=== PATIENT | female | born 1940 | race Caucasian/White ===

== ENCOUNTER 2018-12-24 08:55 | Day surgery (SDC) | payer MEDICARE, OTHER, MEDICAID ==
[~2018-12-24] VITALS: Ht 147.3 cm; Wt 61.2 kg
[~2018-12-24 08:55] MED LIST: ACETAMINOPHEN325 M1 PO; BENADRYL25 MG PO; CIPRO500 MG PO; CITALOPRAM HBR20 MG PO; DICYCLOMINE HCL20 MG PO; FLAGYL500 MG PO; FUROSEMIDE20 MG PO; FUROSEMIDE40 MG PO; K-TAB ER20 MEQ PO; KEFLEX500 MG PO; OXYCODONE HCL5 MG PO; PANTOPRAZOLE SO40 MG PO; PRILOSEC OTC20 MG PO; PROTONIX40 MG PO; SPIRONOLACTONE25 MG PO; SPIRONOLACTONE50 MG PO; TAMSULOSIN HCL0.4 MG PO; TRAZODONE HCL50 MG PO
--- NOTE | 2018-12-24 12:26 | NUR ---
12/24/18 1225 Toña Carrington 1217-PATIENT ARRIVED TO PACU ON 4L NC LAYING LEFT LATERAL NONAROUSABLE. RR EVEN. C02 33. ABDOMEN SOFT. 1222-PATIENT MOANING EYES CLOSED. HAND ON STOMACH. PATIENT NOT OPENING EYES TO VERBAL STIMULI. 1225-PATIENTS EYES CLOSED. REPORTS "MY TUMMY HURTS" PATIENT EDUCATED ABOUT AIR IN COLON AND PASSING GAS. PATIENT MOANING. SR.
--- NOTE | 2018-12-24 13:39 | NUR ---
PATIENT'S SPOUSE IS AT THE BEDSIDE. CALL LIGHT IS WITHIN REACH. PATIENT IS MOANING WITH EACH EXHALATION. PATIENT REPORTS ABDOMINAL PAIN AT 1/10. PATIENT SWINGS LEGS OVER THE SIDE OF THE BED AND ASKS FOR THE HEAD OF THE BED TO BE ELEVATED. THIS IS DONE. PATIENT REPOSITIONS HERSELF AT 90 ANGLE AND REPORTS HER PAIN IS IMPROVED WITH POSITION CHANGE. PATIENT'S ABDOMEN IS TENDER WITH LIGHT PALPATION. ABDOMEN IS FIRM. CONTINUOUS PULSE OXIMETER IS KEPT IN PLACE. OXYGEN IS TURNED OFF AFTER REPOSITIONING - OXYGEN SATURATION 100% ON 2L VIA NC.
--- NOTE | 2018-12-24 14:26 | NUR ---
1420-ABDOMINAL XRAY COMPLETED SHOWN TO DR. DAIGLE NEW ORDER FOR CHEST XRAY. PATIENT REPORTS "CAN'T THE DIFFERENCE BETWEEN BACK AND STOMACH PAIN" CALL LIGHT WITHIN REACH.
--- NOTE | 2018-12-24 17:15 | NUR ---
VERONICA 1500: DR DAIGLE IS IN TO SEE PATIENT AFTER REVIWEING X-RAYS. HE ORDERS PATIENT TO EAT "A LITTLE SOMETHING" AND IF SHE TOLERATES THAT, SHE CAN BE DISCHARGED. PATIENT IS GIVEN APPLESAUCE. SHE EATS THAT AND DRINKS SOME WATER AND TOLERATES THAT WELL. DISCHARGE INSTRUCTIONS ARE GIVEN IN PRESENCE OF SPOUSE AND BOTH VERBALIZE UNDERSTANDING. PATIENT STANDS AT THE BEDSIDE AND TOLERATES THAT WELL. PATIENT DRESSES SELF IN PRESENCE OF SPOUSE AND TOLERATES THAT WELL. PATIENT TRANSFERS HERSELF TO WHEELCHAIR AND THEN PERSONAL VEHICLE AND TOLERATES THAT WELL.
--- NOTE | 2018-12-25 08:36 | OR ---
[facility] [address] [place], [place] [address] Signed DATE OF OPERATION: 12/24/2018 SURGEON: Juliana Daigle MD PREOPERATIVE DIAGNOSES: 1. History of profound anemia (hematocrit 15.7 on November 02, 2018). 2. 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 3. Normal upper endoscopy, November 02, 2018. POSTOPERATIVE DIAGNOSES: Mild inflammatory changes of colon (chronic without evidence of polyps, diverticula formation, colitis, or cancer). PROCEDURE PERFORMED: Total colonoscopy to cecum with biopsy of cecum, left colon, and rectum. ANESTHESIA: Propofol infusion, Milton Hunter CRNA. INDICATION: A 78-year-old white woman who was admitted to the hospital on November 02, 2018, and evaluated by me at that time for profound anemia with hematocrit of 15.7. A more recent hematocrit performed on December 19 showed a hematocrit of 27.3. She has had no overt bleeding recently, though did have bright red rectal bleeding several months ago. She underwent upper endoscopy on her hospitalization previously as well as transfusion therapy. Upper endoscopy did not show a source of bleeding. Colonoscopy was recommended. However, she declined and wished to be discharged home at that time to present for outpatient colonoscopy. She is here for that purpose at this point. The risks of bleeding, infection, and perforation were reviewed with her. She understands and wished to proceed. FINDINGS: The prep was good. Complete colonoscopy was undertaken of the cecum without question. The ileocecal valve and appendiceal orifice were easily identified. There is no obvious lesion to account for her anemia, specifically no neoplasm, polyps, diverticular formation, or active colitis. There was mild chronic burned-out type colitis noted, but biopsies were obtained to affirm that. DESCRIPTION OF PROCEDURE: Electronically Signed By: JULIANA DAIGLE MD 12/25/18 0836 PATIENT NAME: MCKENZIE FRANK OPERATIVE REPORT DATE OF : 42 REPORT #: [id number] PHYSICIAN: JULIANA DAIGLE MD PCP: DEONDRE BORGES MD REPORT IS CONFIDENTIAL AND NOT TO BE RELEASED WITHOUT AUTHORIZATION [facility] [address] [place], [place] [address] Signed The patient was brought to the endoscopy suite and placed in lateral decubitus position given intravenous sedation to the point of slurred speech and nystagmus. This was with propofol infusional technique by the turbo electric operator with full cardiopulmonary monitoring. Digital rectal examination showed external hemorrhoids that were extensive. Digital rectal examination was found to be normal. An Olympus video colonoscope was passed in the rectum and manipulated throughout the colon ultimately intubating the cecum itself. Abdominal wall stabilization was required due to her redundant colon. There appeared to be mild chronic inflammation of the colon, but nothing would account for anemia. Biopsies were taken of the cecum. The scope was carefully withdrawn. Examination throughout did show some traumatic mucosal hemorrhages of minimal amount, a testimony to the friability of her mucosa. There was no sign of polyp, however. Attempts at retroflexed view were unsuccessful. Careful inspection of the rectum, however, showed no sign of abnormality that was likely accounting for anemia. Biopsies were obtained. The scope was removed. The patient was taken to recovery room in good condition. CONCLUDING DIAGNOSIS: No evidence of lesion to account for significant anemia. PLAN: She will return to the ongoing care of Dr. Borges. If she should develop a bleeding issue, re-evaluation will be undertaken. Her hematocrit most recently was 27.3 on December 19, 2018. She will return to the ongoing care of Dr. Borges. Juliana Daigle MD /SUEL /[id number] cc: Deondre Borges MD Copies: DEONDRE BORGES MD ~ Electronically Signed By: JULIANA DAIGLE MD 12/25/18 0836 PATIENT NAME: MCKENZIE FRANK OPERATIVE REPORT DATE OF : 42 REPORT #: [id number] PHYSICIAN: JULIANA DAIGLE MD PCP: DEONDRE BORGES MD REPORT IS CONFIDENTIAL AND NOT TO BE RELEASED WITHOUT AUTHORIZATION
== END 2018-12-24 15:40 | disposition home or self-care (01) ==
LOC: OPS 08:55 → DS 08:55 → OPS 10:00
PROVIDERS: Surgery
PROC: 0DBG8ZX Excision of Left Large Intestine, Via Natural or Artificial Opening Endoscopic, Diagnostic (ICD-10-PCS; 2018-12-24)
PROC: 0DBP8ZX Excision of Rectum, Via Natural or Artificial Opening Endoscopic, Diagnostic (ICD-10-PCS; 2018-12-24)
PROC: 0DBH8ZX Excision of Cecum, Via Natural or Artificial Opening Endoscopic, Diagnostic (ICD-10-PCS; principal; 2018-12-24 10:00)
DX: K52.9 Noninfective gastroenteritis and colitis, unspecified (principal); D64.9 Anemia, unspecified; F32.9 Major depressive disorder, single episode, unspecified; K74.60 Unspecified cirrhosis of liver; Z79.899 Other long term (current) drug therapy
CPT/HCPCS: 71045; 74018; 88305; J2704; J7120

== ENCOUNTER 2019-02-07 23:34 | Inpatient (IN) | payer MEDICARE, OTHER, MEDICAID ==
[~2019-02-07] VITALS: Ht 147.3 cm; Wt 62.9 kg
--- OUTSIDE RECORDS SUMMARY | 2019-02-07 23:36 | XMS ---
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 Care History Medical/Surgical 11/25/2018 [facility] - PATIENT HAS AN APT WITH DR WARREN ON 11/28/18 - UROLOGIST. 11/25/2018 [facility] - Patient is currently established with [facility]. If patient is seen in the ED during business hours. Please contact CHWs at [facility]. Care Recommendation: This patient has had 5 or more Emergency Department visits in the last 12 months.\T\nbsp; Patient requires education on the scope and purpose of the ED as an acute care provider not a Primary Care Provider and should not be utilized for chronic conditions.\T\nbsp; These are guidelines and the provider should exercise clinical judgment when providing care. E.D. VISIT COUNT (12 MO.) 6 [facility] TOTAL 6 NOTE: Visits indicate total known visits. ED/UCC VISIT TRACKING (12 MO.) 02/07/2019 23:34 [facility] [place] TYPE: Emergency COMPLAINT: - PASSED OUT 11/30/2018 08:42 [facility] [place] TYPE: Emergency COMPLAINT: - TROUBLE URINATING DIAGNOSES: - Retention of urine, unspecified - Dysuria - Other penitentiary (current) drug therapy - Allergy status to sulfonamides status - Allergy status to other drugs, medicaments and biological substances status 11/24/2018 10:51 [facility] [place] TYPE: Emergency COMPLAINT: - CATH ISSUE DIAGNOSES: - Allergy status to sulfonamides status - Other mechanical complication of other urinary catheter, initial encounter - Other penitentiary (current) drug therapy - Acquired absence of other specified parts of digestive tract - Allergy status to other drugs, medicaments and biological substances status - Leakage of indwelling urethral catheter, initial encounter 11/15/2018 07:04 [facility] [place] TYPE: Emergency COMPLAINT: - URINE PROBLEM, BACK PAIN, DIARRHEA 11/01/2018 13:16 [facility] [place] TYPE: Emergency COMPLAINT: - WEAKNESS,DIZZINESS 02/21/2018 13:36 [facility] [place] TYPE: Emergency COMPLAINT: - SOB INPATIENT VISIT TRACKING (12 MO.) 11/15/2018 07:05 [facility] [place] TYPE: Observation COMPLAINT: - COLITIS DIAGNOSES: - Hypo-osmolality and hyponatremia - Retention of urine, unspecified - Adverse effect of unspecified drugs, medicaments and biological substances, sequela - Nausea with vomiting, unspecified - Other penitentiary (current) drug therapy - Hypokalemia - Allergy status to sulfonamides status - Infectious gastroenteritis and colitis, unspecified - Hepatic failure, unspecified without coma - Allergy status to other drugs, medicaments and biological substances status - Insomnia, unspecified - Personal history of (healed) other pathological fracture 11/01/2018 13:17 [facility] [place] TYPE: Observation COMPLAINT: - ANEMIA SYMPTOMATIC DIAGNOSES: - Hepatic failure, unspecified without coma - Diaphragmatic hernia without obstruction or gangrene - Allergy status to other drugs, medicaments and biological substances status - Adverse effect of other drugs, medicaments and biological substances, sequela - Anemia, unspecified - Personal history of (healed) other pathological fracture - Allergy status to sulfonamides status - Weakness - Gastritis, unspecified, without bleeding - Other keno terminal operator (current) drug therapy - Urinary tract infection, site not specified - Secondary esophageal varices without bleeding - Personal history of peptic ulcer disease - Do not resuscitate - Unspecified cirrhosis of liver 02/21/2018 18:[address] [facility] [place] TYPE: Observation COMPLAINT: - ACITES, SYMPOTMATIC ANEMIA DIAGNOSES: - Hepatic failure, unspecified without coma - Irritable bowel syndrome without diarrhea - Allergy status to sulfonamides status - Allergy status to other drugs, medicaments and biological substances status - Toxic liver disease, unspecified - Do not resuscitate - Anemia, unspecified - Other penitentiary (current) drug therapy - Other ascites - Shortness of breath [email or web address]
[2019-02-08] MEDS ORDERED: FUROSEMIDE40 MG PO (01:40)
--- NOTE | 2019-02-08 14:53 | EKG ---
[facility] [address] [facility] [place] [address] Signed Sinus rhythm with occasional premature ventricular complexes Nonspecific T wave abnormality Abnormal ECG When compared with ECG of 01-NOV-2018 14:02, premature ventricular complexes are now present premature atrial complexes are no longer present Confirmed by ALEX GREENE DO ([id number]) on 02/08/2019 2:53:15 PM Electronically Signed By: ALEX GREENE DO 02/08/19 1453 PATIENT NAME: MCKENZIE FRANK Electrocardiogram DATE OF : 42 PHYSICIAN: ALEX GREENE DO REPORT #: [id number] REPORT IS CONFIDENTIAL AND NOT TO BE RELEASED WITHOUT AUTHORIZATION
[2019-02-09] MEDS ORDERED: TRAZODONE HCL50 MG PO (11:31)
[2019-02-09] MEDS ORDERED: PANTOPRAZOLE SO40 MG PO (11:31)
--- NOTE | 2019-02-09 13:32 | CONS ---
[facility] [address] [place], [place] [address] Signed DATE OF CONSULTATION: 02/08/2019 REQUESTING PHYSICIAN: Alex Mcintosh MD PROBLEM: Recurrent significant anemia (symptomatic). HISTORY OF PRESENT ILLNESS: This 78-year-old white woman is known to me from the past having been undergone consultation on November 02, 2018, for a consideration of endoscopic evaluation for the finding of a hematocrit at that time of 15.7. At that time, she had no hematemesis or blood per rectum. 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 Indeed, she was on a transplant list at one time, however, initiated a course of milk thistle ingestion, which improved her situation, no longer requiring liver transplant now. She is known to have esophageal varices. Her evaluation at that time included upper endoscopy showing esophageal varices, but no sign of acute bleeding problem though she did have diffuse gastritis. A colonoscopy had also been performed showing no specific abnormality. She is said to have some dark stool over the past week or so. She presented to the emergency room and was evaluated by Dr. Mosley at approximately midnight where she had a syncopal episode and woke up on the floor with the pain of her left chest wall. She had no hematemesis. For the preceding two days, she had felt occasionally lightheaded and weak, but without any abdominal pain and no hematemesis or gross blood per rectum. MEDICATIONS: Include Lasix and spironolactone. She takes no nonsteroidal medication. She was directly admitted to the hospital by Dr. Mcintosh when it was found that her hematocrit was 16.9. Transfusion therapy was initiated with 2 units of packed red cells, which made little impact on her hematocrit this morning. Her hematocrit this morning is 17.2, up from 16.9. Her platelet count was 207 at admission, 140 now. She continues to have no blood per rectum or hematemesis. Consultation is requested on the basis of possible need for repeat upper endoscopy and possible colonoscopy again. As regard to her fall on the chest, a chest x-ray with rib series was obtained, which showed no sign of pneumothorax or displaced rib fractures in any way. She complains only of chest wall pain, but no abdominal pain proper. Review of her hematocrit level over the past few months shows she was as high as 32 on November 15; on November 18, 30.7; on Electronically Signed By: JULIANA DAIGLE MD 02/09/19 1332 PATIENT NAME: MCKENZIE FRANK CONSULTATION DATE OF : 42 REPORT #: [id number] PHYSICIAN: JULIANA DAIGLE MD PCP: SIERRA ARANDA MD REPORT IS CONFIDENTIAL AND NOT TO BE RELEASED WITHOUT AUTHORIZATION [address] [address] Signed December 19.3. At present, patient has no shortness of breath. No diaphoresis. No hypotension. No complaints of abdominal pain. She still complains of back pain, which she chronically has from a T12 compression fracture and left chest wall pain as well. PHYSICAL EXAMINATION: GENERAL: A small white woman who does not look acutely distressed actually. VITAL SIGNS: Temperature is 98.3, blood pressure 95/54, pulse 72, O2 saturation is 96% on 2 L nasal cannula. NECK: Shows no thyromegaly or cervical adenopathy. Trachea is midline. CHEST: Shows normal respiratory excursion without tachypnea. Pulses regular. ABDOMEN: Scaphoid and flat. She has a somewhat deformed torso overall. Palpation of the abdomen reveals no focal tenderness, specifically no left upper or mid abdominal tenderness. There is mild tenderness of the chest wall. No crepitus is noted. EXTREMITIES: Show no clubbing, cyanosis, or edema. LABORATORY STUDIES: Show this morning a white count of 4.0, hematocrit 17.2, platelets 140,000. Coag studies show an INR normal at 1.1. Chem profile shows sodium 130. Studies last night showed troponin less than 0.01. ASSESSMENT: The patient's previous anemia was attributed to diffuse gastritis without acute bleeding. She has had some dark stool and one wonders whether there may be another source of occult GI bleeding, specifically the small bowel as upper endoscopy previously did show diffuse gastritis without bleeding. No non-bleeding advanced esophageal varices on colon evaluation, which was considered without sign of lesion to account for anemia. Review of the colonoscopy report from December 24, 2018 showed mild inflammatory lesion of the colon. No obvious ongoing or likely bleeding source otherwise. Certainly, upper endoscopy could be performed to assess if there is a concurrent source of new GI bleeding, specifically ulceration or progression of her gastritis. Though she is not on any new nonsteroidal medications, she is not on any side of protective agents either. Her current medications based on updated pharmacy list include Lasix 20 mg p.o. daily and spironolactone 50 mg daily. Allergies noted include sulfa medications and promethazine (Phenergan). Additional transfusion therapy is anticipated by Dr. Interiano which I think would be advisable prior to embarking upon endoscopic evaluation. If she should have sudden bleeding or profound hemodynamic compromise that plan could be modified given her overall medical status and advanced age resuscitation with additional blood transfusion would be appropriate prior to endoscopic evaluation. I have discussed this with Dr. Mcintosh. Electronically Signed By: JULIANA DAIGLE MD 02/09/19 1335 PATIENT NAME: MCKENZIE FRANK CONSULTATION DATE OF : 42 REPORT #: [id number] PHYSICIAN: JULIANA DAIGLE MD PCP: SIERRA ARANDA MD REPORT IS CONFIDENTIAL AND NOT TO BE RELEASED WITHOUT AUTHORIZATION [address] [address] Signed Juliana Daigle MD JM/MODL /[id number] cc: Alex Mcintosh MD Copies: ALEX MCINTOSH DO ~ Electronically Signed By: JULIANA DAIGLE MD 02/09/19 1332 PATIENT NAME: MCKENZIE FRANK CONSULTATION DATE OF : 42 REPORT #: [id number] PHYSICIAN: JULIANA DAIGLE MD PCP: SIERRA ARANDA MD REPORT IS CONFIDENTIAL AND NOT TO BE RELEASED WITHOUT AUTHORIZATION
--- NOTE | 2019-02-11 13:59 | PATH ---
[facility] [address] [place], [place] [address] Signed SPECIMEN(S): A RECTO SIGMOID POLYP SPECIMEN SOURCE: A. RECTO SIGMOID POLYP CLINICAL HISTORY: Anemia. Post op: Polyp, esophageal varices, diffuse gastritis - no bleeding. MICROSCOPIC DESCRIPTION: Histologic sections of all submitted blocks are examined by light microscopy. These findings, together with the gross examination, support the pathologic diagnosis. FINAL PATHOLOGIC DIAGNOSIS: Mucosa, rectosigmoid area, biopsy: - Tubular adenoma. LJA:glc:C2NR GROSS DESCRIPTION: The specimen, labeled "JH, rectosigmoid polyp," is received in formalin and consists of a 0.2 cm in greatest dimension, linares-white soft tissue fragment. The specimen is entirely submitted in cassette (A1). AR (under the direct supervision of a pathologist) The Gross Description was prepared using a voice recognition system. The report was reviewed for accuracy; however, sound-alike word errors, addition and/or deletions may occur. If there is any question about this report, please contact Client Services. PERFORMING LABORATORY: The technical component was performed by [facility], [address] [place] [id number] (Liner Inserter: Jacey Guerrero MD; CLIA# [id number]). [facility] [address] [address] (Liner Inserter: Tramaine Vegas MD; CLIA# [id number]). Diagnostician: Tramaine Vegas MD Pathologist Electronically Signed 02/11/2019 PATIENT NAME: MCKENZIE FRANK PATHOLOGY DATE OF : 42 REPORT #: [id number] PHYSICIAN: YUKI PATHOLOGY PCP: SIERRA ARANDA MD REPORT IS CONFIDENTIAL AND NOT TO BE RELEASED WITHOUT AUTHORIZATION [address] [place], [place] [address] Signed Copies: ~ PATIENT NAME: MCKENZIE FRANK PATHOLOGY DATE OF : 42 REPORT #: [id number] PHYSICIAN: YUKI PATHOLOGY PCP: SIERRA ARANDA MD REPORT IS CONFIDENTIAL AND NOT TO BE RELEASED WITHOUT AUTHORIZATION
--- NOTE | 2019-02-12 10:22 | OR ---
[facility] [address] [place], [place] [address] Signed DATE OF OPERATION: 02/10/2019 SURGEON: Juliana Daigle MD PREOPERATIVE DIAGNOSES: 1. Profound anemia (recurrent) upper endoscopy showing only esophageal varices. 2. Colonoscopy to transverse colon yesterday with one polyp of rectosigmoid (excised, but incomplete bowel prep). POSTOPERATIVE DIAGNOSIS: No evidence of lesion of colon to account for anemia. PROCEDURE PERFORMED: Total colonoscopy to cecum. ANESTHESIA: Intravenous sedation; propofol infusion; Molly Marie CRNA INDICATION: This 78-year-old white woman is a patient of Dr. Borges and admitted by Dr. Mcintosh on February 07, 2019, with profound anemia. Her hematocrit was 15. She has been transfused and shows no sign of bleeding. She did have "dark stool" at time of her presentation. She yesterday underwent upper endoscopy, which showed esophageal varices as expected from her liver cirrhosis issue from the past. Attempts at colonoscopy after bowel prep were unsuccessful largely, certainly anything proximal to the mid transverse colon could not be evaluated due to inadequate prep. On that basis, she has undergone bowel prep again overnight and is to undergo colonoscopy at this time. The risks of bleeding, infection, and perforation were reviewed with her. She understands and wished to proceed. FINDINGS: The prep was much improved of course. It was not perfect, however. Colonoscopy was undertaken to the cecum based on characteristic landmarks and abdominal wall palpation. There was no sign of polyps or colitis or arteriovenous malformations or other lesions that would account for anemia. The clip from prior polypectomy yesterday was still intact. DESCRIPTION OF PROCEDURE: The patient was brought to the endoscopy suite and placed in lateral decubitus position given intravenous sedation with propofol infusional technique with full cardiopulmonary Electronically Signed By: JULIANA DAIGLE MD 02/12/19 1022 PATIENT NAME: MCKENZIE FRANK OPERATIVE REPORT DATE OF : 42 REPORT #: [id number] PHYSICIAN: JULIANA DAIGLE MD PCP: SIERRA BORGES MD REPORT IS CONFIDENTIAL AND NOT TO BE RELEASED WITHOUT AUTHORIZATION [facility] [address] [place], [place] [address] Signed monitoring. Digital rectal examination was undertaken showing some medium dark liquid stool. An Olympus video colonoscope was passed in the rectum and manipulated throughout the colon. She had poor sphincter tone overall. Ultimately, the scope was advanced beyond the transverse colon and ultimately to the cecum itself. Irrigation was undertaken. There was some solid stool still in the cecum. Various manipulations could not clear much of it there. Abdominal wall palpation revealed that this was the cecum in fact. I did not intubate the ileum as it was not able to be intubated based on some retained stool. The scope was withdrawn from that point. Careful examination showed no sign of bleeding, blood clot, arteriovenous malformation, or neoplasm. The clip applied to the polypectomy site from yesterday was noted and is intact. Scope was removed. The patient was taken to recovery room in good condition. CONCLUDING DIAGNOSIS: No discernible lesion to account for anemia. PLAN: She will return to the ongoing care of Dr. Mcintosh. Her episodic anemia remains enigmatic. Whether this remains a production problem of blood or blood loss problem is uncertain. I suspect the former considering the multiple evaluations she has had for the latter. Juliana Daigle MD JM/MODL /[id number] cc: MD Art Antoine MD Copies: SIERRA BORGES MD, BRIAN DO ~ Electronically Signed By: JULIANA DAIGLE MD 02/12/19 1022 PATIENT NAME: MCKENZIE FRANK OPERATIVE REPORT DATE OF : 42 REPORT #: [id number] PHYSICIAN: JULIANA DAIGLE MD PCP: SIERRA BORGES MD REPORT IS CONFIDENTIAL AND NOT TO BE RELEASED WITHOUT AUTHORIZATION
--- NOTE | 2019-02-12 10:22 | OR ---
[facility] [address], [place] [address] Signed DATE OF OPERATION: 02/09/2019 SURGEON: Juliana Daigle MD DATE OF PROCEDURE: 02/09/2019 PREOPERATIVE DIAGNOSES: 1. Recurrent severe anemia (hematocrit of 15) with "dark stool." 2. Known history of cirrhosis with portal hypertension and esophageal varices. POSTOPERATIVE DIAGNOSES: 1. Esophageal varices, nonbleeding, grade 4. 2. Mild diffuse gastritis without sign of bleeding or recent stigmata of bleeding. 3. Small polyp of rectosigmoid (excised). Poor prep proximal to mid transverse colon. PROCEDURES: 1. Esophagogastroduodenoscopy. 2. Colonoscopy beyond splenic flexure with cold morcellation polypectomy x1. ANESTHESIA: Intravenous sedation, propofol infusion; Milton Hunter CRNA. INDICATION: This 78-year-old white woman is a patient of Dr. Borges. She has been admitted by Dr. Mcintosh on 02/07/2019, with recurrent severe anemia, hematocrit of 15. She has had 4 units of packed red cells. Her hematocrit is now greater than 31. She has not shown any overt bleeding, certainly no hematemesis and no melena, but was said to have "dark stools. She presented the same way this past summer, for which, upper endoscopy confirmed esophageal varices, which were well known previously. No sign of bleeding and mild diffuse gastritis, and colonoscopy subsequently performed showed no lesion to account for anemia. She is reported to have undergone PillCam evaluation elsewhere, which was negative as well. Endoscopic evaluation has been requested by Dr. Mcintosh given that her recent anemia is associated with dark stool. Both upper endoscopy and colonoscopy will be undertaken. It is recalled that she has cirrhosis related to a surgical misadventure elsewhere, in Electronically Signed By: JULIANA DAIGLE MD 02/12/19 1022 PATIENT NAME: MCKENZIE FRANK OPERATIVE REPORT DATE OF : 42 REPORT #: [id number] PHYSICIAN: JULIANA DAIGLE MD PCP: DEONDRE BORGES MD REPORT IS CONFIDENTIAL AND NOT TO BE RELEASED WITHOUT AUTHORIZATION [facility] [address], [place] [address] Signed which sclerosing agent was infused to the biliary tree with laparoscopic cholecystectomy 17 years ago resulting in significant hepatic damage, cirrhosis and resultant portal hypertension. FINDINGS: Upper endoscopy did confirm grade 4 esophageal varices without sign or stigmata of recent bleeding. There was mild diffuse gastritis, but no sign of ulceration. No blood in the stomach or duodenum. There was bile in the stomach indeed. Colonoscopy unfortunately was inadequately prepped. Great effort was made to provide complete colonoscopy, but passage beyond the mid transverse colon was simply not feasible, reasonable or safe due to inadequacy of the bowel prep. The colon from the midtransverse distalward, however, showed no bleeding lesion, blood or diverticulosis, did show one sessile adenomatous polyp, which was excised. DESCRIPTION OF PROCEDURE: The patient was brought to the endoscopy suite and placed in lateral decubitus position, given topical Hurricaine spray hypopharyngeal anesthesia. With full cardiopulmonary monitoring and sedation administered by propofol infusion by the trade recruiter, a bite block was placed and an Olympus video upper endoscope was passed in the hypopharynx. The vocal cords appeared normal. Scope was advanced to the esophagus and immediately noted were numerous large and engorged varices, but no stigmata of recent bleeding or inflammation. Scope was passed in the stomach where bilious material was noted. There is certainly no clot of blood or other stigmata of recent bleeding. Irrigation was undertaken as needed. The scope was advanced to the antrum. The scope passed into the duodenum, which was entirely normal. Scope was withdrawn and retroflexed view undertaken, confirmed a large hiatal hernia. Irrigation was undertaken more fully. There was no evidence at all of recent bleeding or lesion, though she did have mild diffuse gastritis. The scope was straightened and withdrawn to the distal esophagus where careful withdrawal showed again no evidence of bleeding or ulceration, but certainly advanced esophageal varices. Scope was withdrawn and removed. Plans were then made for colonoscopy. She had undergone a bowel prep last night, which was unfortunately delivered in a delayed way over the course of the day. Immediately noted was some dark but not black or tarry stool. The scope was passed in the rectum and immediately noted was a rather poor prep. Irrigation was undertaken as able and the scope manipulated as far as possible ultimately beyond the splenic flexure to the transverse colon. Irrigation was undertaken, but there was no reasonable expectation the scope could be passed to the cecum and certainly unlikely to be able to detect more subtle lesions such as arteriovenous malformations and so forth. On that basis, the colonoscopy was no longer pushed toward the cecum and the scope was withdrawn, careful irrigation undertaken and evaluation undertaken showing no sign of bleeding lesion or Electronically Signed By: JULIANA DAIGLE MD 02/12/19 1022 PATIENT NAME: MCKENZIE FRANK OPERATIVE REPORT DATE OF : 42 REPORT #: [id number] PHYSICIAN: JULIANA DAIGLE MD PCP: DEONDRE BORGES MD REPORT IS CONFIDENTIAL AND NOT TO BE RELEASED WITHOUT AUTHORIZATION [place] [id number] Signed blood. There was a polyp at about 20 cm, which was excised with cold morcellation technique. On the basis of her known portal hypertension, hemoclip was applied to assure hemostasis. The scope was then withdrawn. CONCLUDING DIAGNOSES: 1. No sign of upper gastrointestinal bleeding based on upper endoscopy, though esophageal varices were present and diffuse gastritis was noted. 2. Incomplete bowel prep. Colonoscopy to mid transverse colon showing no sign of bleeding lesion or blood, but an adenomatous-appearing polyp at 20 cm, excised fully. PLAN: We will review with Dr. Mcintosh. A more complete colon evaluation may be advisable, but only if adequate bowel prep can be undertaken. We will review this. We are mindful that she has undergone a rather extensive bowel evaluation in the past including PillCam showing no lesion to account for bleeding. Evaluation is underway for a "production- related" anemia including bone marrow issue or perhaps a sequestration issue of her red cells rather than actual blood loss anemia. MD JOSE ANTONIO Worley/MODL /[id number] cc: MD Deondre Vieira MD Copies: ALEX MCINTOSH MALCOLM MD ~ Electronically Signed By: JULIANA DAIGLE MD 02/12/19 1022 PATIENT NAME: MCKENZIE FRANK OPERATIVE REPORT DATE OF : 42 REPORT #: [id number] PHYSICIAN: JULIANA DAIGLE MD PCP: DEONDRE BORGES MD REPORT IS CONFIDENTIAL AND NOT TO BE RELEASED WITHOUT AUTHORIZATION
== END 2019-02-13 11:12 | disposition swing bed (61) | DRG 811 ==
LOC: ED 23:34 → MS 23:35
PROVIDERS: Surgery; ADMIT Student in an Organized Health Care Education/Training Program
PROC: 0DJD8ZZ Inspection of Lower Intestinal Tract, Via Natural or Artificial Opening Endoscopic (ICD-10-PCS; principal; 2019-02-10 14:45)
DX: D62 Acute posthemorrhagic anemia (principal); J96.01 Acute respiratory failure with hypoxia; S22.42XA Multiple fractures of ribs, left side, initial encounter for closed fracture; K92.1 Melena; I85.10 Secondary esophageal varices without bleeding; D50.0 Iron deficiency anemia secondary to blood loss (chronic); K72.90 Hepatic failure, unspecified without coma; G47.00 Insomnia, unspecified; Z79.899 Other long term (current) drug therapy; Z66 Do not resuscitate; Z88.2 Allergy status to sulfonamides; Z88.8 Allergy status to other drugs, medicaments and biological substances; W18.30XA Fall on same level, unspecified, initial encounter; Y92.009 Unspecified place in unspecified non-institutional (private) residence as the place of occurrence of the external cause
CPT/HCPCS: 36415; 71045; 71101; 80048; 80053; 82607; 82746; 83615; 83735; 84484; 85025; 85045; 85610; 86850; 86880; 86900; 86901; 86920; 93005; 93010; 94640; 94762; 96361; 96374; 96375; 97110; 97116; 97162; 97165; 97535; 99285-25; C9113; J0131; J1940; J2270; J2405; J2704; J3010; J3475; J7030; J7120; P9016

== ENCOUNTER 2019-02-13 11:13 | Inpatient (IN) | payer MEDICARE, OTHER, MEDICAID ==
[~2019-02-13] VITALS: Ht 147.3 cm; Wt 61.3 kg
--- NOTE | 2019-02-13 12:00 | NUR ---
MED REC COMPLETE
--- NOTE | 2019-02-13 13:09 | NUR ---
PT WAS TRANSITIONED TO SWING BED STATUS RECENTLY FOR CONTINUED THERAPY. ASSESSMENT COMPLETED PT ALERT AND ORIENTED. PT DENIES NEEDS/CONCERNS. PT AMBULATES ONE FULL LAP AROUND NURSING STATIONS WITH SBA AND FWW. PT TOLERATED WELL AND UP TO CHAIR AT THIS TIME. CALL LIGTH AND FRESH H2O IN REACH.
--- NOTE | 2019-02-13 14:29 | NUR ---
I ASKED HER THIS MORNING AND THAN AROUND 1330 IF SHE WANTED A SHOWER AND SHE SAID NOT RIGHT NOW. BUT I DID SET HER UP FOR A SHOWER.
--- NOTE | 2019-02-13 15:50 | NUR ---
PT REPORTS "6/10 ACHING AND AT TIMES SHARP" PAIN TO LEFT POSTERIOR RIBS. pT REQEUSTED AND RECEIVED PRN PO OXYCODONE AND ALSO SCHEDULED PO GABAPENTIN -SEE EMAR. CALL LIGHT AND H2O IN REACH. NO OTHER NEEDS OR CONCERNS VOICED.
--- NOTE | 2019-02-13 19:00 | NUR ---
SHIFT REPORT RECEIVED FROM DAYSHIFT SINTIA HILL AT BEDSIDE. PT AWAKE AND RESTING IN BED, REPORTS DISCOMFORT AT TIMES. ON RA, NO DISTRESS NOTED. CALL LIGHT IN REACH.
--- NOTE | 2019-02-13 21:30 | NUR ---
ASSESSMENT COMPLETE, SCHEDULED MEDICATIONS GIVEN (SEE EMAR). VSS, PT ON RA AT THIS TIME. PT REPORTS 5/10 PAIN, DESCRIBES TOLERABLE AT THIS TIME. LUNG SOUNDS CLEAR, DIMINISHED IN THE LEFT LOBES. PT DENIES ADDITIONAL NEEDS, CALL LIGHT IN REACH.
--- NOTE | 2019-02-13 23:17 | NUR ---
PT RESTING IN BED, EYES CLOSED, RESPIRATIONS EVEN AND UNLABORED. NO DISTRESS NOTED, PT APPEARS COMFORTABLE. CALL LIGHT IN REACH.
--- NOTE | 2019-02-14 02:23 | NUR ---
PT SPOT CHECKED, O2 SAT MID TO UPPER 80'S. PT PLACED ON 1LNC, NOW MAINTAINING IN 90'S. WILL MONITOR. CALL LIGHT IN REACH.
--- NOTE | 2019-02-14 03:30 | NUR ---
PT RESTING IN BED, EYES CLOSED. 1LNC IN PLACE, O2 SAT AND HR WNL. PT APPEARS COMFORTABLE, DENIES ADDITIONAL NEEDS. CALL LIGHT IN REACH.
--- NOTE | 2019-02-14 04:30 | NUR ---
PT RESTING IN BED, EYES CLOSED. PT ON 1LNC, O2 SAT UPPER 90'S, HR 70'S. PT APPEARS COMFRTABLE, NO SIGNS OF PAIN OR DISTRESS NOTED. CALL LIGHT IN REACH.
--- NOTE | 2019-02-14 05:57 | NUR ---
PT UP SBA TO VOID, REPORTS 7-8/10 PAIN. ONE 5MG OXYCODONE ADMINISTERED. PT AMBULATED TO CHAIR, CALL LIGHT IN REACH. I&O'S RECORDED.
--- NOTE | 2019-02-14 07:31 | NUR ---
while giving report, pt reports 6/10 pain. prn oxycodone administered. no further needs, call light in reach.
--- NOTE | 2019-02-14 07:40 | NUR ---
RECIEVED BEDSIDE REPORT FROM SINTIA SCHERER. PT IS SITTING UP IN CHAIR. REPORTS ONE OXY WAS NOT ENOUGH, WILL GIVE ANOTHER ONE.
--- NOTE | 2019-02-14 11:53 | NUR ---
PT SITTING IN CHAIR, READING A BOOK. SHE IS ALERT, ORIENTED AND PLEASANT. SHE MENTIONED THAT THE NIGHTS SLEEP WAS OK-NO PAIN AT THE PRESENT.HAD GOOD VISIT, PT THANKED ME FOR COMING BY. EXTENDED A BLESSING, WILL FOLLOW NEEDED
--- NOTE | 2019-02-14 11:54 | NUR ---
SPOKE WITH PATIENT IN ROOM. DISCUSSED TRANSIONAL CARE STAY. DISCUSSED PROGRESSION OF THERAPY TO STRENGTHEN HER TO BE SAFE TO RETURN HOME. SHE STATES SHE IS ONLY ABLE TO TOLERATE ABOUT A MINUTE OF ADL'S WITHOUT WALKER. PATIENT IS STILL VERY PAINFUL FROM RIB AREA. DISCUSSED IMPORTANCE OF USING THE IS ROUTINELY THROUGHOUT THE DAY. DISSCUSSED CDB. DISCUSSED GOOD NUTRITION. PATIENT STATES UNDERSTANDING AND QUESTIONS ANSWERED.
--- NOTE | 2019-02-14 12:19 | NUR ---
I ASKED PATIENT IF SHE WOULD LIKE TO TAKE A SHOWER TODAY AND SHE SAID NO BUT SHE DID SAY THAT SHE DID DO A PARTIAL BATH THIS MORNING. SHE IS SITTING UP IN HER CHAIR READING HER BOOK.
--- NOTE | 2019-02-14 18:20 | NUR ---
CALL LIGHT ANSWERED. PATIENT USING BATHROOM. PATIENT BACKS TO BED. I&O DONE. CALL LIGHT WITHIN REACH. NO OTHER NEEDS AT THIS TIME
--- NOTE | 2019-02-14 18:25 | NUR ---
PT IS MOSTLY INDEPENDENT IN HER ROOM. ENCOURAGE TO WALK IN HALLS. EATING WELL, VOIDING WELL. PAIN IS MOSTLY WELL CONTROLLED WITH PO MEDS. DISCUSSED GOALS AND PLAN OF SWING BED PROGRAM. PT STATED SHE UNDERSTOOD. VOIDING WELL, PO INTAKE IMPROVED.
--- NOTE | 2019-02-14 20:24 | NUR ---
Pt up to br, voided QS, back to ebd. requiures 1PA/FWW. does c/o slight sob sometimes with exertion. Calm at this time. Coop with assessment. sligth crackles R upper, clear otherwise. last bm this evening. No c/o pain at this time. Fresh water and call light at bedside, no c/o n/v. Bruising both hands and L ac from IV sites and blood draws
--- NOTE | 2019-02-14 20:30 | NUR ---
c/o 5/10 L sided rib pain, medicated with 10mg po Oxycodone. Watching tv
--- NOTE | 2019-02-14 21:48 | NUR ---
vitals and I&Os done
--- NOTE | 2019-02-14 22:21 | NUR ---
RESTING, OPENS EYES CLOSED, AWAKENS EASILY, DENIES PAIN, RELIEF STATED FROM EARLIER PAIN MEDS. CALL LIGHT AT BEDSIDE
--- NOTE | 2019-02-15 01:55 | NUR ---
Resting, no distress, call light at bedside
--- NOTE | 2019-02-15 04:48 | NUR ---
PT CONTINUES ON TRANSITIONAL CARE/SWING BED STATUS. REQUIRES 1PA/FWW, SLIGHT SOB ON EXERTION BUT RECUPERATES EASILY, ON ROOM AIR. HAS BEEN MEDICATED WITH OXYCODONE 10MG PO X1 PER L RIB PAIN. COOPERATIVE WITH POC. TOLERATING DIET AND FLUIDS, NO C/O N/V. USES CALL LIGHT APPROPRIATELY.
--- NOTE | 2019-02-15 05:07 | NUR ---
IN BED, UP TO BR WITH HELP, WENT BACK TO CHAIR, TOLERATED WELL. DAILY WEIGHT 137# THIS AM. FRESH WATER GIVEN. CALL LIGHT AT HANDS REACH. NO C/O PAIN OR N/V. NO SOB WITH EXERTION NOTED THIS AM.
--- NOTE | 2019-02-15 05:11 | NUR ---
SBA PT TO TOILET, SBA PT ONTO STANDING SCALE, SBA PT INTO CHAIR, BEDSIDE TABLE / CALL LIGHT IN REACH
--- NOTE | 2019-02-15 07:21 | NUR ---
RECIEVED REPORT FROM SINTIA PEREZ. PT AWAKE AND ALERT IN CHAIR. PT IS MORE AWAKE AND STEADY IN THE AM. VOIDING WELL. EATING WELL.
--- NOTE | 2019-02-15 17:40 | NUR ---
PT WORKED WITH PHYSICAL THERAPY. INDEPENDENT IN ROOM. ON ROOM AIR. VOIDING WELL. SHOWER TODAY.
--- NOTE | 2019-02-15 20:27 | NUR ---
In bed c/o increased L rib side pain. Medicated with Oxycodione 10mg po. Lidoderm partch removed from L side. Tolerating diet and liquids, no c/o n/v. Cooperative with assessment. SCDS in place.
--- NOTE | 2019-02-15 22:03 | NUR ---
SBA PT TO TOILET, AND BK TO BED,
--- NOTE | 2019-02-15 22:23 | NUR ---
Up to br 1pa/fww, voided, tolerated well, back to bed. no c/o pain. call light at bedside
--- NOTE | 2019-02-16 03:40 | NUR ---
RESTING, NO DISTRESS, UP TO BR EARLIER, TOLERATED WELL. BACK TO BED. CALL LIGHT AT BEDSIDE
--- NOTE | 2019-02-16 04:07 | NUR ---
SBA PT TO TOILET, AND BK TO BED,
--- NOTE | 2019-02-16 04:32 | NUR ---
CONTINUES ON TRANSITIONAL CARE STATUS, REQUIRES 1PA/FWW, WORKING WITH PT/OT. HAS BEEN UP SEVERAL TIMES TO BR, VOIDING QS. NO SOB NOTED THIS SHIFT. ON ROOM AIR, WAS MEDICATED AT BEGINING OF SHIFT WITH OXYCODONE 10MG PO PER L SIDED RIB PAIN, EFFECTIVE. CURRENTLY RESTING, EYES CLOSED. CALL LIGHT AND FLUIDS AT BEDSIDE
--- NOTE | 2019-02-16 06:54 | NUR ---
SBA PT ONTO STANDING SCALE, SBA PT TO TOILET, SBA TO CHAIR I OBSV PT HAVING WHEEZING AND REPORTED TO THE RN, RN IS AWARE,
--- NOTE | 2019-02-16 07:25 | NUR ---
RECIEVED BEDSIDE REPORT FROM SINTIA PEREZ. PT IS AWAKE AND ALERT, SITTING IN THE CHAIR. STATES SHE IS MORE PAINFUL THIS MORNING, SHE WOULD LIKE PAIN MEDS WITH HER AM MEDS.
--- NOTE | 2019-02-16 09:56 | NUR ---
PT IS SLEEPING IN HER CHAIR, APPEARS COMFORTABLE AT THIS TIME.
--- NOTE | 2019-02-16 17:53 | NUR ---
PT IS RESTING ALL AFTERNOON. SHE REQUESTED A WARM BLANKET. OTHERWISE SHE IS COMFORTABLE.
--- NOTE | 2019-02-16 19:05 | NUR ---
CHARGE NURSE REPORT RECEIVED. PT IN BED, NO NEEDS AT THIS TIME.
--- NOTE | 2019-02-16 20:01 | NUR ---
IN BED, C/O 6/10 L RIB AREA PAIN, LIDODERM PATCH REMOVED, MEDICATED WTIH OXYCODONE 10MG PO. STATES SHE FEELS WEAKER WITH SLIGHT SOB WITH MOVEMENT/EXERTION. NO DISTRESS NTOED AT THIS TIME, ON ROOM AIR. REQUIRES 1PA AND FWW. SCDS IN PLACE. VOIDING QS. CALL LIGHT AND FRESH WATER AT BEDSIDE CONTINUES ON SWING BED/TRANSITIONAL CARE STATUS, COOP WITH ASSESSMENT
--- NOTE | 2019-02-16 22:00 | NUR ---
RESTING, EYES CLOSED, CALL LIHGT AT BEDSIDE.
--- NOTE | 2019-02-16 22:36 | NUR ---
ANSWERED CALL LIGHT. SBA TO THE BATHROOM AND BACK TO BED. CALL LIGHT IN REACH.
--- NOTE | 2019-02-17 01:43 | NUR ---
Resting, no c/o pain, no distress, call light at bedside
--- NOTE | 2019-02-17 02:40 | NUR ---
ADMIN OXYCODONE 10MG PO FOR REPORTS OF 5/10 LOWER BACK/HIP PAIN.
--- NOTE | 2019-02-17 04:50 | NUR ---
PT HAS SLEPT MOST OF THIS SHIFT, HAS BEEN MEDICATED 2X WITH OXYCODONE 10MG PO C/O L POSTERIOR RIB PAIN WITH GOOD TO FAIR PAIN RELIEF. NO C/O N/V. UP TO BR WITH 1PA AND FWW. TOLERATING FAIR. CALL LIGHT AND FLUIDS AT BEDSIDE
--- NOTE | 2019-02-17 07:02 | NUR ---
SBA TO THE BATHROOM AND BACK TO BED.
--- NOTE | 2019-02-17 07:19 | NUR ---
RECIEVED REPORT FROM SINTIA PEREZ. PT IS RESTING, SHE HAS NOT SLEPT WELL ALL NIGHT. SHE HAS NOT BEEN WEIGHED YET. ANXIOUS ABOUT DC.
--- NOTE | 2019-02-17 12:45 | NUR ---
PT SITTING IN CHAIR, WATCHING TV. SHE SMILED AND STATED, "I FEEL BETTER EVERYDAY". PT MENTIONED THOUGH THAT SHE HAS NOT SLEPT WELL-HAVE WILD DREAMS AND WAKES HERSELF UP TALKING IN HER SLEEP. PT HAS ENJOYED WALKING MORE. I EXTENDED A BLESSING,WILL FOLLOW NEEDED
--- NOTE | 2019-02-17 13:50 | NUR ---
PT'S DAUGHTER REPORTS SHE IS FEELING NAUSOUS AGAIN. ANTIEMETICS GIVEN AN HOUR AGO, UNABLE TO GIVE MORE FOR 5 MORE HOURS. WILL CONTINUE TO MONTIOR.
--- NOTE | 2019-02-17 19:10 | NUR ---
CHARGE NURSE REPORT RECEIVED. NO NEEDS AT THIS TIME.
--- NOTE | 2019-02-17 19:10 | NUR ---
BEDSIDE REPORT RECEIVED FROM OFFGOING RNLUIS. PT SITTING UP IN CHAIR, PARTICIPATES IN REPORT. PT DENIES NEEDS AT THIS TIME. CALL LIGHT WITHIN.
--- NOTE | 2019-02-17 20:40 | NUR ---
PT ASSESSMENT COMPLETE. PT RESTING IN BED. REPORTS PAIN TO L FLANK, RATES 6/10. PRN OXYCODONE ADMINISTERED. PT STATES THAT PAIN INCREASES WITH MOVEMENT. PT DENIES NAUSEA OR SOB. ICE WATER REFILLED. PT DENIES FURTHER NEEDS. STATES THAT SHE WILL CALL WHEN SHE IS READY FOR BED. CALL LIGHT IN REACH.
--- NOTE | 2019-02-17 21:25 | NUR ---
CALL LIGHT ANSWERED. PATIENT IS BACK IN BED FROM BATHROOM. CALL LIGHT IN REACH.
--- NOTE | 2019-02-17 23:53 | NUR ---
PATIENT USED THE CALL LIGHT. SBA TO THE BATHROOM. PATIENT IS BACK IN BED. CALL LIGHT IN REACH.
--- NOTE | 2019-02-18 00:37 | NUR ---
PT RESTING IN BED AFTER USING THE BATHROOM. PT DENIES PAIN AFTER OXYCODONE ADMINISTRATION. DENIES FURTHER NEEDS AT THIS TIME. CALL LIGHT IN REACH.
--- NOTE | 2019-02-18 04:37 | NUR ---
sba to the bathroom. patient is back in bed. call light in reaCH.
--- NOTE | 2019-02-18 05:37 | NUR ---
PT REQUESTS PRN OXYCODONE FOR 6/10 PAIN TO L RIBS. WARM BLANKET PROVIDED. PT DENIES FURTHER NEEDS AT THIS TIME. CALL LIGHT IN REACH.
--- NOTE | 2019-02-18 05:38 | NUR ---
PT RESTED WELL THIS SHIFT. OXYCODONE X 2 FOR PAIN. PAIN TO L RIBS. NO IV SITE. UO QS. PT/OT. PT INDEPENDENT IN ROOM.
--- NOTE | 2019-02-18 07:05 | NUR ---
BEDSIDE HANDOFF REPORT RECEIVED FROM EDUCATION TRAINER RN. PT RESTING IN BED, PT DENIES NEEDS AT THIS TIME.
--- NOTE | 2019-02-18 07:37 | NUR ---
PATIENT UP TO BATHROOM AND THEN TO CHAIR, SBA. PATIENT DID AM CARE AND ORAL CARE AT SINK. CALL LIGHT IN REACH. NO FURTHER NEEDS AT THIS TIME.
--- NOTE | 2019-02-18 09:45 | NUR ---
PT SITTING IN CHAIR, READING A BOOK. PT RATES PAIN MODERATE TO LEFT RIBS. PT ON ROOM AIR, LUNG SOUNDS CLEAR, DENIES SOB. BOWEL TONES ACTIVE, DENIES NAUSEA, REPORT OF BM 2 DAYS AGO, PLAN TO START NIO BOWEL ROUTINE. PT WITHOUT EDEMA, CMS INTACT. DISCUSSED THE PLAN OF CARE FOR THE DAY. PT DENIES OTHER NEEDS AT THIS TIME.
--- NOTE | 2019-02-18 11:05 | NUR ---
PT COMPLAINT OF PAIN AFTER WORKING WITH P.T., RATING PAIN 8/10 TO LEFT RIBS, GIVEN 10 MG PO OXYCODONE. PT PROVIDED WITH FRESH WATER. PT DENIES OTHER NEEDS AT THIS TIME.
--- NOTE | 2019-02-18 14:00 | NUR ---
PT SITTING IN CHAIR. PT RATING PAIN 5/10 AT THIS TIME, IMRPOVED AND TOELRABLE AFTER OXYCODONE. PT DENIES OTHER NEEDS AT THIS TIME.
--- NOTE | 2019-02-18 14:14 | NUR ---
PT SITTING IN CHAIR, LOOKING ON HER PHONE. SHE SAID IT IS JUST KIND OF A "BLAH" DAY-BUT STILL SMILING! EXTENDED A BLESSING,WILL CONTINUE TO FOLLOW NEEDED
--- NOTE | 2019-02-18 16:35 | NUR ---
PT SITTING IN CHAIR. PT STATES SHE IS STARTING TO GET UNCOMFORTABLE, RATING PAIN 6/10, 10MG OXYCODONE GIVEN. PT DENIES OTHER NEEDS AT THIS TIME.
--- NOTE | 2019-02-18 18:09 | NUR ---
PATIENT IN CHAIR READING A BOOK. CALL LIGHT IN REACH. NO FURTHER NEEDS AT THIS TIME.
--- NOTE | 2019-02-18 18:30 | NUR ---
PT HAD UNEVENTFUL DAY. PT ON ROOM AIR, LUNG SOUNDS CLEAR. PT TOLERATING LOW SODIUM DIET. PAIN WELL CONTROLLED WITH LIDOCAINE AND OXYCODONE PRN. PT INDEPENDENT IN THE ROOM, WALKED IN [place] WITH P.T. PT VOIDING QS.
--- NOTE | 2019-02-18 19:10 | NUR ---
PT RESTING IN BED, WATCHING TV. PAIN 5/10. PT DENIES NEED FOR FURTHER PAIN INTERVENTION. NO NEEDS AT THIS TIME. CALL LIGHT IN REACH.SHIFT REPORT RECIEVED FROM DEEPA PATRICIO.
--- NOTE | 2019-02-18 21:50 | NUR ---
PT UP TO BR AND BACK TO BED, SBA WITH ANH PATRICIO. ASSESSMENT COMPLETED. PAIN 7/10 IN LEFT POSTERIOR RIBS. SCHEDULED AND PRN PAIN MEDS PROVIDED. NO FURTHER NEEDS AT THIS TIME. CALL LIGHT IN REACH.
--- NOTE | 2019-02-19 00:09 | NUR ---
PT RESTING IN BED. PAIN 07/14. PT DENIES NEED FOR FURTHER PAIN INTERVENTION. NO OTHER NEEDS. SCDS OFF. CALL LIGHT IN REACH.
--- NOTE | 2019-02-19 01:08 | NUR ---
PATIENT USED THE CALL LIGHT. SBA TO THE BATHROOM. PATIENT IS BACK IN BED. PATIENT WANTED TO HAVE A BREAK ON SCD. PRIMARY RN NOTIFIED. CALL LIGHT IN REACH.
--- NOTE | 2019-02-19 02:02 | NUR ---
PT RESTING IN BED, EYES CLOSED. RR 16, EVEN, UNLABORED. SCDs OFF. CALL LIGHT IN REACH.
--- NOTE | 2019-02-19 04:01 | NUR ---
PT RESTING IN BED, EYES CLOSED. RR 18, EVEN, UNLABORED. SCDs ON. CALL LIGHT IN REACH.
--- NOTE | 2019-02-19 04:52 | NUR ---
PT HAS SLEPT WELL THIS SHIFT. LEFT BACK/RIB PAIN MANAGED WITH PRN PAIN MEDS. VSS. A&O X4. SCDs TOLERATED WELL. SPO2 WNL.
--- NOTE | 2019-02-19 06:45 | NUR ---
PT STATES SHE IS IN 7/10 PAIN AFTER GOING TO BR. PRN PAIN MED PROVIDED. SCDs ON. NO FURTHER NEEDS. CALL LIGHT IN REACH.
--- NOTE | 2019-02-19 07:47 | NUR ---
PATIENT IN BED RESTING WITH EYES CLOSED. PATIENT REFUSED TO GET UP FOR BREAKFAST AT THIS TIME. CALL LIGHT IN REACH. NO FURTHER NEEDS AT THIS TIME.
--- NOTE | 2019-02-19 09:00 | NUR ---
PT SITTING IN CHAIR. PT RATING PAIN 6/10, STATES SHE DID NOT RECEIVE MUCH RELEIF AFTER OXYCODONE THIS AM, LIDOCAINE PATCH APPLIED PER ORDER. PT ON ROOM AIR, LUNG SOUNDS CLEAR, DENIES SOB. PT WITHOUT EDEMA, CMS INTACT. PT TOELRATING LOW SODIUM DIET, BOWEL TONES ACTIVE, SENNA GIVEN PER ORDER. O.T. AT BEDSIDE, PT REFUSING AT THIS TIME DUE TO PAIN. DISCUSSED PAIN MANAGEMENT WITH PT, PT STATES SHE ONLY TALES TYLENOL AT HOME IF SHE NEEDS IT, WILL DISCUSS PAIN MANAGEMENT WITH MD. DISCUSSED PLAN OF CARE FOR THE DAY. PT DENIES OTHER NEEDS AT THIS TIME.
--- NOTE | 2019-02-19 13:11 | NUR ---
ADMIN OXYCODONE 10MG PO FOR REPORTS OF 7/10 RIB PAIN.
--- NOTE | 2019-02-19 13:40 | NUR ---
PT HEADING TO RR, BUT STOPPED TO TELL ME THAT SHE WILL DC TOMORROW. SHE THINKS SHE IS READY. WILL CONTINUE TO FOLLOW
--- NOTE | 2019-02-19 13:56 | NUR ---
PATIENT SITTING IN CHAIR. FRESH WATER GIVEN. CALL LIGHT IN REACH. NO FURTHER NEEDS AT THIS TIME.
--- NOTE | 2019-02-19 14:02 | NUR ---
SPOKE WITH MONISHA REGARDING POSSIBLE DISCHARGE TOMORROW. DISCUSSED THAT BOTH PT AND OT HAVE DISCHARGED HER, AND THINK SHE IS READY TO TRANSITION TO BEING HOME. SHE STATES SHE IS WALKING ON HER OWN IN ROOM AND IN [place] SHE FEELS FINE WITH GOING HOME "EXCEPT I'M HURTING SO MUCH STILL". WE DISCUSSED SLOW HEALING OF RIB FRACTURES CAN TAKE WEEKS TO MONTHS. PATIENT "DIDN'T KNOW IT WOULD TAKE SO LONG". ASKED PATIENT IF SHE PLANS ON RETURNING TO HER RV OR IF SHE WILL STAY WITH FAMILY FOR A FEW DAYS FIRST, SHE STATES SHE IS RETURNING TO HER RV. SHE STATES SHE FEELS SHE WILL BE MORE COMFORTABLE THERE. DISCUSSED SHE MAY NEED HELP WITH SOME THINGS FOR A WHILE, SUCH SHOPPING, ANY HEAVIER HOUSEWORK. SHE STATES HER DAUGHTER IS GOING TO HELP HER, AND HER SON-IN-LAW IS GOING TO DO THE OUTSIDE STUFF. DISCUSSED HER FOLLOW UP AT CLINIC, SHE HAS A NEW PATIENT APPOINTMENT WITH DR ARANDA IN [place], BUT WE WILL MAKE HER A HOSPITAL F/U WITH THEM FIRST. DISCUSSED THAT I WILL HAVE [facility] CALL HER IN A FEW DAYS AND CHECK IN ON HER, SEE IF SHE HAS QUESTIONS OR NEEDS ANY RESOURCES. SHE IS AGREEABLE TO THIS. DISCUSSED THAT IF SHE HAS CONCERNS SHE CAN COME TO WALK-IN CLINIC OR IF EMERGENT ISSUES TO THE ED. SHE STATES UNDERSTANDING. SHE IS UNSURE IF SHE CAN GET A RIDE HOME TOMORROW BETWEEN 11 AND 6. DISCUSSED WE CAN PROVIDE A CARE RIDE OR SHE CAN STAY UNTIL FAMILY CAN TAKE HER. NO FURTHER QUESTIONS AT THIS TIME.
--- NOTE | 2019-02-19 14:15 | NUR ---
PT CONCERN OF PAIN FOR DISCHARGED, DISCUSSED PAIN MANAGEMENT WITH DR. REBOLLAR, ORDER TO APPLY ICE PACK TO BACK/RIBS, DUE TO PT LIVER FUNSTION THERE ARE LIMITED OPTIONS FOR PAIN MEDICATION. PT HAS NOT HAD BM TODAY, PT CONCERNED OF DIARRHEA WITH LAXATIVE, ORDER FOR BISACODYL SUPPOSITORY.
--- NOTE | 2019-02-19 14:30 | NUR ---
PATIENT SIGNED INTENT TO DISCHARGE FROM TRANSITIONAL CARE PROGRAM. COPY GIVEN TO PATIENT, ORIGINAL TO [facility]. DISCHARGE IS PLANNED FOR TOMORROW. PATIENT STATES SHE WILL CALL HER DAUGHTER.
--- NOTE | 2019-02-19 14:41 | NUR ---
BISACODYL SUPPOSITORY INSERTED PER ORDER, PT TOLERATED PROCEDURE WELL. BSC PLACED BY PATIENT. PT DENIES OTHER NEEDS AT THIS TIME.
[2019-02-19] MEDS ORDERED: OXYCODONE HCL5 MG PO (18:34)
--- NOTE | 2019-02-19 18:38 | NUR ---
PATIENT IN CHAIR READING. FRESH WATER GIVEN. CALL LIGHT IN REACH. NO FURTHER NEEDS AT THIS TIME.
--- NOTE | 2019-02-19 19:29 | NUR ---
REPORT RECEIVED FROM SINTIA ARENAS. PT IN ROOM CHANGING CLOTHING. NO REQUESTS AT THIS TIME.
--- NOTE | 2019-02-19 20:46 | NUR ---
ROUNDED CHARGE. PATIENT IS RESTING IN BED. ILDA PRUETT PRESCIRILO IN ROOM TAKING VITALS. PATIENT DENIES ANY COMMENTS, QUESTIONS, OR CONCERNS. NO NEEDS NOTED. CALL LIGHT IN REACH.
--- NOTE | 2019-02-19 21:24 | NUR ---
PT ASSESSMENT COMPLETE. FINE CRACKLES RUL, CLEAR THROUGHOUT LUNG LOBES, SPO2 WNL ON RA. SBA TO RESTROOM FOR VOID AND BACK TO BED. SCDS ON. PT RATES PAIN 5-6/10 IN BACK/LEFT RIBS. ICE PACK AND PRN PAIN MEDICATIONS PROVIDED. ICE WATER AND CALL LIGHT IN REACH. NO ADDITIONAL REQUESTS AT THIS TIME.
--- NOTE | 2019-02-19 23:51 | NUR ---
pt RESTING IN BED WITH EYES CLOSED. BREATHING EQUAL AND UNLABORED. SCDS ON. LIGHTS OFF IN ROOM.
--- NOTE | 2019-02-20 02:18 | NUR ---
CHECKED ON pt. RESTING IN BED WITH EYES CLOSED. RR 16. BREATHING UNLABORED. LIGHTS OFF IN ROOM. SCDS ON.
--- NOTE | 2019-02-20 04:58 | NUR ---
pt SLEPT WELL THROUGHOUT SHIFT. SBA WITH FWW TO RESTROOM FOR VOIDS. PAIN WELL CONTROLLED WITH PRN PO PAIN MEDICATION AND ICE PACKS. NO IV ACCESS. VSS. SCDS IN PLACE. PLAN TO D/C HOME TODAY.
--- NOTE | 2019-02-20 06:28 | NUR ---
PATIENT GOT UP WELL FOR DAILY WEIGHT, AND THEN WALKED WITH 1PA TO THE BATHROOM AND HAD A SMALL BM AND VOIDED 400MLS. GIVEN A NEW GLASS OF ICE WATER AND TUCKED BACK INTO BED. CALL LIGHT IN REACH AND PATIENT SAID SHE HAD NO MORE NEEDS.
--- NOTE | 2019-02-20 06:49 | NUR ---
pt RESTING IN BED, AWAKE, DROWSY. DENIES NEED FOR PRN PAIN MEDICATION AT THIS TIME, REQUESTING TO SLEEP. CALL LIGHT IN REACH. SCDS ON.
--- NOTE | 2019-02-20 07:24 | NUR ---
PT RESTING SUPINE IN BED EYES CLODESD AND RESPIRATIONS EVEN AND UNLABORED. PT APPEARS TO BE SLEEPING COMFORTABLY. CALL LIGHT AND H2O IN REACH. REPORT RECEIVED FROM SINTIA KAMARA.
--- NOTE | 2019-02-20 08:23 | NUR ---
PT SITTING UP ON COUCH WORKING WITH OT. AM MEDS ADMINISTERED AND ASSESSMENT COMPLETED. PT ALERT AND ORIETNED AND DENIES SOB, PAIN OR NAUSEA. PT VOICED CONCERN THAT SHE HAS NOT RECEIVED HER WALKER YET. PER BARREL AND RECEIVER ALIGNER THIS WILL BE DELIVERED TO PT HERE AT HOSPITAL PRIOR TO PT'S DISCHARGE. PT EDUCATED ON THIS. FRESH ICE WATER PROVIDED PER PT REQUEST. NO FURTHER NEEDS OR CONCERNS VOICED. CALL LIGHT AND H2O IN REACH.
--- NOTE | 2019-02-20 09:03 | NUR ---
PT UP IN CHAIR. PT REFUSED SHOWER WILL TAKE ONE AT HOME. PT HAS NO NEEDS AT THIS TIME.
--- NOTE | 2019-02-20 09:05 | NUR ---
SPOKE WITH PATIENT IN ROOM. PLAN IS FOR DISCHARGE TODAY. DISCUSSED THAT SHE WAS DISCHARGED FROM OT AND PT SO IF SHE HAS QUESTIONS WE CAN HAVE THEM COME IN, SHE STATES SHE DOESN'T HAVE QUESTIONS. DISCUSSED THAT PT WAS HAVING HER USE A WALKER FOR LONGER DISTANCES AND DOES SHE PLAN TO DO THAT AFTER DISCHARGE? SHE STATES SHE MIGHT USE ONE WHEN GOING TO DR OFFICE TYPE PLACES. SHE STATES SHE DOESN'T HAVE ONE TO USE AT HOME, AND SHE AGREES TO THE OFFER OF MY GETTING ONE FOR HER AT [facility] TODAY BEFORE DISCHARGE. WE DISCUSSED THAT I HAVE ASKED CLEMENT MADISON CALL HER AND CHECK IN WITH HER AT HOME IN A FEW DAYS. SHE AGREES TO THIS. SHE IS HAVING HER FAMILY HELP HER WITH THINGS NEEDED AT HOME THAT MIGHT STILL BE A CHALLANGE. SHE DOES NOT HAVE A RIDE HOME TODAY HER DAUGHTER IS WORKING. WE DISCUSSED WE CAN PROVIDE A CARE RIDE. SHE STATES HER DAUGHTER DID BRING IN HER KEYS AND SHE FEELS READY TO GO HOME. DISCUSSED SHE CAN CALL PCP OFFICE, OR OUR CASE MANAGEMENT OFFICE IF SHE HAS ANY QUESTIONS OR CONCERNS. QUESTIONS ANSWERED.
--- NOTE | 2019-02-20 12:00 | NUR ---
PT SITTING UP IN CHAIR, ALERT AND ORIENTED CALL LIGHT AND H2O IN REACH. PT EDUCATED ON FAC TTHAT WALKER WILL BE DELIVERED SOON POSSIBLE THIS AFTERNOON AND PT VOICED UNDERSTANDING. LUNCH ORDERED FOR PT AT THIS TIME PER HER REQUEST. NO FURTHER NEEDS OR CONCERNS VOICED.
--- NOTE | 2019-02-20 12:47 | NUR ---
PT SITTING ON COUCH, WAITING FOR DC. WALKER ORDERED BUT NOT DELIVERED YET. SHE SEEMS SOMEWHAT ANXIOUS, BUT READY TO BE HOME. EXTENDED A BLESSING, WILL FOLLOW NEEDED
== END 2019-02-20 15:00 | disposition home or self-care (01) | DRG 560 ==
LOC: MS 11:13
PROVIDERS: ADMIT Internal Medicine
DX: S22.42XD Multiple fractures of ribs, left side, subsequent encounter for fracture with routine healing (principal); D62 Acute posthemorrhagic anemia; D61.818 Other pancytopenia; K76.6 Portal hypertension; R09.02 Hypoxemia; K21.9 Gastro-esophageal reflux disease without esophagitis; K72.90 Hepatic failure, unspecified without coma; K74.69 Other cirrhosis of liver; W19.XXXD Unspecified fall, subsequent encounter; Y92.009 Unspecified place in unspecified non-institutional (private) residence as the place of occurrence of the external cause; Z79.899 Other long term (current) drug therapy; Z88.2 Allergy status to sulfonamides; Z88.8 Allergy status to other drugs, medicaments and biological substances
CPT/HCPCS: 94760; 97110; 97116; 97162; 97165; 97530; 97535

== ENCOUNTER 2019-07-04 10:56 | Day surgery (SDC) | payer MEDICARE, OTHER, MEDICAID ==
[~2019-07-04] VITALS: Ht 147.3 cm; Wt 55.8 kg
[~2019-07-04 10:56] MED LIST changes: +ASPIRIN325 MG PO; +CALCIUM CITRAT200 MG PO; +CENTRUM SILVER1 EAC3 PO; +DONEPEZIL HCL10 MG PO; +HYDROCHLOROTHIA50 MG PO; +LEVOTHYROXINE100 MCG PO; +MYRBETRIQ50 MG PO; +NEURONTIN300 MG PO; +OMEPRAZOLE20 MG PO; +TYLENOL325 MG PO; +VITAMIN D32000 UNI1 PO
[2019-07-04] MEDS ORDERED: K-TAB ER20 MEQ PO (11:14)
--- NOTE | 2019-07-04 12:32 | NUR ---
07/04/19 1232 Anya Lujan 1225- PT ARRIVES TO PACU EASILY AROUSABLE TO VOICE. PT FALLS INSTANTLY BACK TO SLEEP WHEN NOT BEING TALKED TO. RESP EVEN AND UNLABORED. OXYGEN SAT HIGH 90'S TO 100% ON 3L VIA NC.
--- NOTE | 2019-07-11 16:31 | PATH ---
[facility] [address] [facility] [address] [place], [place] [address] Signed THIS IS AN ADDENDUM REPORT SPECIMEN(S): A BONE MARROW - CORE SPECIMEN(S): B BONE MARROW - ASPIRATION SPECIMEN(S): C COMP FLOW CYTOMETRY, BM EDTA CLINICAL HISTORY: 78-year-old woman with chronic liver disease and pancytopenia. D64.9 (anemia, unspecified). DIAGNOSIS SUMMARY: A. Peripheral blood - Moderate microcytic hypochromic anemia with mild anisopoikilocytosis. - Leukopenia with absolute neutropenia and lymphocytopenia. - Mild thrombocytopenia. B. Bone marrow, aspirate smear, aspirate clot, and core biopsy: - Normocellular marrow (40%) with erythroid hyperplasia and mild megakaryocytic atypia. - See Diagnostic Comment. DIAGNOSTIC COMMENT: In summary, this is a normocellular marrow (40%) with erythroid hyperplasia and mild megakaryocytic atypia. The peripheral blood shows moderate microcytic hypochromic anemia with mild anisopoikilocytosis, leukopenia with absolute neutropenia and lymphocytopenia, and mild thrombocytopenia. There is no increase in blasts. The morphologic findings are subtle and not diagnostic of myelodysplastic syndrome (MDS), although a low-grade MDS cannot be completely excluded. Reactive causes for the patient's pancytopenia, such as chronic disease, infection, inflammatory disorders, drug/toxin effect, autoimmune, etc. need to be excluded clinically. Pending cytogenetics and FISH studies will be reported by addendum. LY:smn:C2NR PERIPHERAL BLOOD: HEMOGRAM ([facility]; 07/04/2019): WBC 1.5 K/uL, RBC 3.27 M/uL, HGB 8.4 g/dL, HCT 26.3%, MCV 80.5 fL, MCH 26 pg, MCHC 32 g/dL, RDW 22.0%, PLT 109 K/uL. MANUAL DIFFERENTIAL COUNT: Segmented neutrophils 59%, lymphocytes 25%, monocytes 12%, eosinophils 2%, basophils 2%. The red blood cells are moderately decreased in number with low hemoglobin and PATIENT NAME: MCKENZIE FRANK PATHOLOGY DATE OF : 42 REPORT #: [id number] PHYSICIAN: YUKI DOMINGO PCP: SIERRA ARANDA MD REPORT IS CONFIDENTIAL AND NOT TO BE RELEASED WITHOUT AUTHORIZATION [facility] [address] [place] [address], [place] [address] Signed hematocrit, and are mildly microcytic and hypochromic with mild anisopoikilocytosis. The white blood cells are significantly decreased in number with absolute neutropenia and lymphocytopenia. Segmented neutrophils show rare hyperlobated forms (six lobes). No circulating blasts are identified. The platelets are mildly decreased in number and morphologically unremarkable. No platelet clumps are identified. BONE MARROW: ASPIRATE SMEAR: The aspirate smears show cellular particles. The erythroid precursors are relatively increased in number and mildly left shifted with maturation, without overt cytologic atypia. The myeloid precursors show full maturation, without overt cytologic atypia. There is no increase in blasts. Megakaryocytes are morphologically unremarkable. BONE MARROW DIFFERENTIAL COUNT (200 cells): Promyelocytes 2%, myelocytes 20%, metamyelocytes 6%, bands 7%, segmented neutrophils 11%, lymphocytes 6%, plasma cells 3%, monocytes 6%, eosinophils 3%, nucleated RBCs 36%. The myeloid:erythroid ratio is 1.5:1. BONE MARROW CORE BIOPSY/ASPIRATE CLOT CELL BLOCK: The core biopsy (two segments, 1.7 cm in greatest dimension) shows trabecular bone with normocellular marrow (40%) for age. The erythroid precursors are increased in number and show maturation, without overt cytologic atypia. The myeloid precursors show full maturation, without overt cytologic atypia. There is no increase in blasts. Scattered megakaryocytes show occasional hypolobated forms. A few scattered small lymphocytes account for less than 5% cellularity. No lymphoid aggregates are identified. A few scattered plasma cells account for less than 5% cellularity. The aspirate clot shows small fragments of cellular marrow with similar morphology. SPECIAL STAINS (with adequate controls): - Iron (aspirate smear): Storage iron absent; ring sideroblasts not identified. - Iron (aspirate clot): Storage iron absent; ring sideroblasts not identified. IMMUNOHISTOCHEMICAL STAINS (performed on block A1 with adequate controls): - CD34: Stains a few blasts (less than 5%). - CD117: Stains a few scattered mast cells. - Myeloperoxidase: Highlights many maturing granulocytes. - CD71: Highlights increased early/intermediate erythroid precursors. - Factor VIII: Highlights scattered variably-sized megakaryocytes. PATIENT NAME: MCKENZIE FRANK PATHOLOGY DATE OF : 42 REPORT #: [id number] PHYSICIAN: YUKI DOMINGO PCP: SIERRA ARANDA MD REPORT IS CONFIDENTIAL AND NOT TO BE RELEASED WITHOUT AUTHORIZATION [address] [address] Signed LY:smn FLOW CYTOMETRY: Bone marrow, aspirate, flow cytometry: - No increase in blasts. - No clonal B cell or aberrant T cell population identified. - See Comment. COMMENT: In summary, there is no immunophenotypic evidence of hematolymphoid neoplasm identified in this study. Correlation with morphologic findings is recommended for full evaluation including disorders not fully characterized by flow cytometry such as myelodysplastic syndrome and myeloproliferative neoplasm. FLOW CYTOMETRY ANALYSIS: FLOW DIFFERENTIAL (% Total CD45 vs. SSC gating): Myeloid 78%; Lymphoid 6%; Monocyte 4%; Dim CD45/Blast: 1.5%. Cell Count: 7.4 x 10*3/uL. POPULATION ANALYSIS: BLASTS: Analysis of the dim CD45 gate demonstrates 1.5% myeloblasts by CD34/CD117. 1.9% of total events are hematogones. LYMPHOID CELLS: The lymphocyte gate comprises 6% of total events and includes 80% T-cells with a CD4:CD8 ratio of 1.3:1 and normal frankel T-cell antigen expression. 5% of lymphocytes are polyclonal B-cells with a kappa:lambda ratio of 1.8:1. The remainders are NK-cells. MYELOID CELLS: The myeloid population comprises 78% of the total events. No aberrant or immature immunophenotypic expression is detected. MONOCYTES: The monocyte population comprises 4% of the total events. Monocytes are not increased. No aberrant immunophenotypic expression is detected. PLASMA CELLS: 0.2% plasma cells are detected in the screening gate neg-dimCD45/CD38. Plasma cells are CD45 dim and positive for CD19. ANTIBODIES USED: KAPPA, LAMBDA, CD20, CD10, CD19, CD23, CD38, FMC7, CD16, CD56, CD8, CD5, CD2, CD4, CD7, CD3, CD14, CD33, CD13, HLADR, CD34, CD117, CD15, CD45: TOTAL ANTIBODIES USED: 24. DKW FINAL DIAGNOSIS PERFORMED BY: Bri Hill MD, Pathologist Jul 07 2019 10:59AM CYTOGENETICS: Pending, to be reported by addendum. FISH ANALYSIS: PATIENT NAME: MCKENZIE FRANK PATHOLOGY DATE OF : 42 REPORT #: [id number] PHYSICIAN: YUKI PATHOLOGY PCP: SIERRA ARANDA MD REPORT IS CONFIDENTIAL AND NOT TO BE RELEASED WITHOUT AUTHORIZATION [facility] [address] [place], [place] [address] Signed Pending, to be reported by addendum. GROSS DESCRIPTION: A. The specimen, received in formalin, labeled "Archana, bone core," consists of three linares bone core fragments from 0.2 to 1.9 cm. Submitted in (A1) following decalcification in Immunocal for 1.5 hours. B. The specimen, received in formalin, labeled "Archana, clot," consists of a 1.9 x 1.6 x 0.2 cm aggregate of blood clot, entirely submitted in (B1). tn:MZ:nabila ADDITIONAL NOTES: This test was developed and its performance characteristics determined by [facility]. It has not been cleared or approved by the US Food and Drug Administration. The FDA does not require this test to go through premarket FDA review. This test is used for clinical purposes. It should not be regarded as investigational or for research. This laboratory is certified under the Clinical Laboratory Improvement Amendments (CLIA) as qualified to perform high complexity clinical laboratory testing. Immunohistochemical and/or in situ hybridization studies were performed on this case with the appropriate positive controls that react as expected. This test was developed and its performance characteristics determined by [facility]. It has not been cleared or approved by the U.S. Food and Drug Administration. The FDA has determined that such clearance or approval is not necessary. This test is used for clinical purposes. It should not be regarded as investigational or for research. [facility] is certified under the Clinical Laboratory Improvement Amendments of 1988 (CLIA) as qualified to perform high complexity clinical laboratory testing. In this case, certain antibodies were performed by both immunohistochemistry and flow cytometry analysis because flow cytometry analysis did not fully explain all the light microscopic findings. Immunohistochemistry aided in the analysis. Both methods are deemed medically necessary in this case. PERFORMING LABORATORY: Professional interpretation was performed by [facility], [facility], [address] [place] [address] (Proofreader: Jhonatan Calabrese M.D.; CLIA#: PATIENT NAME: MCKENZIE FRANK PATHOLOGY DATE OF : 42 REPORT #: [id number] PHYSICIAN: YUKI DOMINGO PCP: SIERRA ARANDA MD REPORT IS CONFIDENTIAL AND NOT TO BE RELEASED WITHOUT AUTHORIZATION [facility] [address] [place], [place] [address] Signed [id number]). [facility], [address] [place] [address] (Proofreader: Jhonatan Calabrese M.D.; CLIA#: [id number]). IMAGES: A: [id number] A: [id number] REASON FOR ADDENDUM: To add results of additional testing. ADDENDUM DIAGNOSTIC COMMENT: Special stain performed on block A1 with adequate controls shows: - Reticulin (repeated): Grade 0 fibrosis. LY:[facility] Professional interpretation was performed by [facility], [facility], [address] [place] [address] (Proofreader: Jhonatan Calabrese M.D.; CLIA#: [id number]). REASON FOR ADDENDUM: To add results of additional testing. Bone marrow aspirate, CYTOGENETIC ANALYSIS Result: 46,XX[20] Normal female karyotype Interpretation: Twenty normal cells were observed. There was no evidence of any chromosome abnormality within the limits of this study. Cytogenetic Analysis Summary: Number of Cells Imaged and Analyzed: 20 Number of Cultures used for Analysis: 1 Number of Karyograms: 5 Banding Level: 350-425 Extra Cells Analyzed /Scored: 0 Banding Method: GTW/G The technical and professional components of the cytogenetics report were performed at [facility]. ([place], [place], case #[id number]). Detailed report is kept on file. SPECIMEN SOURCE: A. FISH Analysis, MDS FISH, BM HEPARIN CLINICAL HISTORY: PATIENT NAME: MCKENZIE FRANK PATHOLOGY DATE OF : 42 REPORT #: [id number] PHYSICIAN: YUKI PATHOLOGY PCP: SIERRA ARANDA MD REPORT IS CONFIDENTIAL AND NOT TO BE RELEASED WITHOUT AUTHORIZATION [facility] [address] [place] [id number] Signed 78-year-old woman with chronic liver disease and pancytopenia. D64.9 (anemia, unspecified). FISH (fluorescence in situ hybridization) RESULT: Not Detected INTERPRETATION: 5q deletion/monosomy 5: Not detected. 7q deletion/monosomy 7: Not detected. Trisomy 8: Not detected. 20q deletion: Not detected. KTM2A (MLL) rearrangement: Not detected. Fluorescence in situ hybridization (FISH) analysis was performed using a specific set of probes for myelodysplastic syndrome. Counts for all probe signals were within the normal reference range. This finding represents a NORMAL result. FISH should be interpreted within the context of a full cytogenetic analysis and hematologic evaluation. ISCN: Probe Set Detail: EGR1/U1V299: nuc surinder 5p15.2(A2R478z3), 5q31(EGR1x2)[200] L2I907/CEP7: nuc surinder 7q31(G7N241x2),7q11.2q11.21(CEP7x2)[200] CEP8: nuc surinder 8q11.1q11.21(CEP8x2)[200] K24O005: nuc surinder 20q12(H65R501t4)[200] KTM2A (MLL): nuc surinder 11q23(5'KMT2A,3'KMT2A)x2(5'KMT2A con 3'PYF0Vh6)[200] References: Jessica Bond (2013) Hematology Am Soc Hematol Educ Program 2013:504-10. PMID [id number] Dae Goodrich and Gautam Rothman (2011) Hematology 16(3):131-8. PMID: [id number] FISH Analysis Summary: Nuclei Scored: 200 Scoring Method: Manual; CPT Code 99918 Number of Probe units: 4 Multiplex Cells analyzed: Interphase Probe sets: Chrom 8: MAY 8, Chrom 20: E88S043, Chrom 5: EGR1, Chrom 5: F4V014, Chrom 7: CEN7, Chrom 7: F8B4628, Chrom 11: KMT2A (MLL) 3', Chrom 11: KMT2A (MLL) 5 ADDITIONAL NOTES: This test was developed and its performance characteristics determined by [facility]. It has not been cleared or approved by the US Food and Drug Administration. The [employer] probe vendor for this study was [employer]. PERFORMING LABORATORY: PATIENT NAME: MCKENZIE FRANK PATHOLOGY DATE OF : 42 REPORT #: [id number] PHYSICIAN: YUKI PATHOLOGY PCP: SIERRA ARANDA MD REPORT IS CONFIDENTIAL AND NOT TO BE RELEASED WITHOUT AUTHORIZATION [facility] [address] [place], [place] [address] Signed The technical component of the FISH testing was performed by [facility], [address] [place] [address] (Proofreader: Fritz Bran D.O.; CLIA#: [id number]). FINAL DIAGNOSIS PERFORMED BY: Michelle Kuhn MD, Jul 11 2019 3:00PM REASON FOR ADDENDUM: To add results of additional testing. Ordering Diagnostician: Bri Hill MD Pathologist Electronically Signed 07/11/2019 Copies: ~ PATIENT NAME: MCKENZIE FRANK PATHOLOGY DATE OF : 42 REPORT #: [id number] PHYSICIAN: YUKI PATHOLOGY PCP: SIERRA ARANDA MD REPORT IS CONFIDENTIAL AND NOT TO BE RELEASED WITHOUT AUTHORIZATION
== END 2019-07-04 13:32 | disposition home or self-care (01) ==
LOC: OPS 10:56 → DS 11:01 → OPS 13:32
PROVIDERS: Specialist
PROC: 079T3ZX Drainage of Bone Marrow, Percutaneous Approach, Diagnostic (ICD-10-PCS; 2019-07-04)
PROC: 07DR3ZX Extraction of Iliac Bone Marrow, Percutaneous Approach, Diagnostic (ICD-10-PCS; principal; 2019-07-04 12:00)
DX: D70.9 Neutropenia, unspecified (principal); D69.6 Thrombocytopenia, unspecified; D50.9 Iron deficiency anemia, unspecified; I10 Essential (primary) hypertension; E78.5 Hyperlipidemia, unspecified; M81.0 Age-related osteoporosis without current pathological fracture; Z79.899 Other long term (current) drug therapy; Z88.2 Allergy status to sulfonamides; Z88.8 Allergy status to other drugs, medicaments and biological substances
CPT/HCPCS: 36415; 85025; 88184; 88185; 88305; 88311; 88313; 88341; 88342; 88360; 88377; 99152; J2250; J3010; J7121

== ENCOUNTER 2020-02-01 09:46 | Inpatient (IN) | payer MEDICARE, OTHER, MEDICAID ==
[~2020-02-01] VITALS: Ht 147.3 cm; Wt 62.6 kg
--- OUTSIDE RECORDS SUMMARY | ~2020-02-01 | XMS | Encounter Summary ---
Demographics + + + | Address | [address] | | | [place] [address] | + + + | Home Phone | | + + + | Preferred Language | Unknown | + + + | Marital Status | | + + + | Worship Affiliation | 1077 | + + + | Race | White | + + + | Ethnic Group | Not or | + + + Author + + + | Author | [facility] | | | and [place] | + + + | Organization | [facility] | | | and [place] | + + + | Address | Unknown | + + + | Phone | Unavailable | + + + Support + + +---------+ + | Name | Relationship | Address | Phone | + + +---------+ + | Bonnie Cifuentes | ECON | Unknown | | + + +---------+ + Care Team Providers + +------+ + | Care Brick Kiln Burner Name | Role | Phone | + +------+ + PCP | Unavailable | + +------+ + Encounter Details +--------+ + + + + | Date | Type | Department | Care Team | Description | +--------+ + + + + | 05/30/ | Hospital | [facility] | | | | 2002 | Encounter | MED CTR LABORATORY | | | | | | [address] | | | | | | [place] | | | | | | [address] | | | | | | [phone] | | | +--------+ + + + + Social History + +-------+ +--------+------+ | Tobacco Use | Types | Packs/Day | Years | Date | | | | | Used | | + +-------+ +--------+------+ | Never Assessed | | | | | + +-------+ +--------+------+ + + + | Sex Assigned at | Date Recorded | | | | + + + | Not on file | | + + + documented as of this encounter Plan of Treatment Not on filedocumented as of this encounter Visit Diagnoses Not on filedocumented in this encounter"
--- OUTSIDE RECORDS SUMMARY | ~2020-02-01 | XMS | Encounter Summary ---
Demographics + + + | Address | [address] | | | [place] [address] | + + + | Home Phone | | + + + | Preferred Language | Unknown | + + + | Marital Status | | + + + | Muslim Affiliation | 1077 | + + + | Race | White | + + + | Ethnic Group | Not or | + + + Author + + + | Author | [facility] | | | and [place] | + + + | Organization | [facility] | | | and [...] Team Providers + +------+ + | Care Software Developer Name | Role | Phone | + +------+ + PCP | Unavailable | + +------+ + Encounter Details +--------+ + + + + | Date | Type | Department | Care Team | Description | +--------+ + + + + | 06/13/ | Hospital | [facility] | | | | 2002 | Encounter | MED CTR LABORATORY | | | | | | [address] | | | | | | [place] | | | | | | [address] | | | | | | [phone] | | | +--------+ + + + [...]
--- OUTSIDE RECORDS SUMMARY | ~2020-02-01 | XMS | Encounter Summary ---
Demographics + + + | Address | [address] | | | [place] [address] | + + + | Home Phone | | + + + | Preferred Language | Unknown | + + + | Marital Status | | + + + | Shinto Affiliation | 1077 | + + + | Race | White | + + + | Ethnic Group | Not or | + + + Author + + + | Author | [facility] | | | and [place] | + + + | Organization | [facility] | | | [...] Team Providers + +------+ + | Care Motion Picture Camera Lens Technician Name | Role | Phone | + +------+ + PCP | Unavailable | + +------+ + Encounter Details +--------+ + + + + | Date | Type | Department | Care Team | Description | +--------+ + + + + | 05/11/ | Hospital | [facility] | | | | 2002 | Encounter | MED CTR LABORATORY | | | | | | [address] | | | | | | [place] | | | | | | [address] | | | | | | [phone] | | | +--------+ + + + [...]
--- OUTSIDE RECORDS SUMMARY | ~2020-02-01 | XMS | Clinical Summary ---
Demographics + + + | Address | [address] [place] [address] | | | [place] [address] | + + + | Home Phone | | + + + | Preferred Language | Unknown | + + + | Marital Status | | + + + | Catholic Affiliation | 1077 | + + + | Race | White | + + + | Ethnic Group | Not or | + + + Author + + + | Author | [facility] | | | and [place] | + + + | Organization | [facility] | | | [...] Team Providers + +------+ + | Care Jewel Oliving Machine Operator Name | Role | Phone | + +------+ + | Deondre Borges MD | PCP | | + +------+ + Allergies Not on File Medications Not on file Active Problems Not on file Social History + +-------+ +--------+------+ | Tobacco [...] on file | | + + + Last Filed Vital Signs Not on file Plan of Treatment + + +-------+ + | Health Maintenance | Due Date | Last | Comments | | | | Done | | + + +-------+ + | Vaccine: | | | | | Dtap/Tdap/Td (1 - | 1 | | | | Tdap) | | | | + + +-------+ + | Vaccine: Zoster (1 | | | | | of 2) | 2 | | | + + +-------+ + | Breast Cancer | | | | | Screening | 7 | | | + + +-------+ + | Vaccine: | | | | | Pneumococcal 65+ (1 | 7 | | | | of 1 - PPSV23) | | | | + + +-------+ + | Vaccine: Influenza | | | | | (#1) | 0 | | | + + +-------+ + Results Not on filefrom Last 3 Months Insurance + +--------+ +--------+ +---------+--------+ | Payer | Benefi | Subscriber | Effect | Phone | Address | Type | | | t Plan | ID | sofia | | | | | | / | | Dates | | | | | | Group | | | | | | + +--------+ +--------+ +---------+--------+ | MEDICARE | MEDICA | [id number] | 09/05/19 | [phone] | | Medica | | | RE | | 07-Pre | 5 | | re | | | PART A | | sent | | | | | | AND B | | | | | | + +--------+ +--------+ +---------+--------+ | | TRICAR | [id number] | 06/08/19 | [phone] | | Indemn | | | E FOR | | 20-Pre | 0 | | ity | | | LIFE | | sent | | | | + +--------+ +--------+ +---------+--------+ + +--------+ +--------+ + + | Guarantor Name | Accoun | Relation to | Date | Phone | Billing Address | | | t Type | Patient | of | | | | | | | | | | + +--------+ +--------+ + + | Sydnee Magaña | Person | Self | [birth year] | [address] | | | al/Fam | | 1941 | [phone] | [place] | | | richelle | | | 3 (Home) | [address] | + +--------+ +--------+ + +"
--- OUTSIDE RECORDS SUMMARY | ~2020-02-01 | XMS | Encounter Summary ---
Demographics + + + | Address | [address] | | | [place] [address] | + + + | Home Phone | | + + + | Preferred Language | Unknown | + + + | Marital Status | | + + + | Jain Affiliation | 1077 | + + + [...] Team Providers + +------+ + | Care Community Integration Specialist Name | Role | Phone | + +------+ + PCP | Unavailable | + +------+ + Encounter Details +--------+ + + + + | Date | Type | Department | Care Team | Description | +--------+ + + + + | 10/22/ | Hospital | [facility] | [facility], | | | 1991 | Encounter | MED CTR XRAY [address] | | | | [address] | [address] | | | | | [place] [address] | [place] [address] | | | | | [phone] | [phone] | | | | | | | | +--------+ + + + [...]
--- OUTSIDE RECORDS SUMMARY | ~2020-02-01 | XMS | Encounter Summary ---
Demographics + + + | Address | [address] | | | [place] [address] | + + + | Home Phone | | + + + | Preferred Language | Unknown | + + + | Marital Status | | + + + | Mormonism Affiliation | 1077 | + + + | Race | White | + + + | Ethnic Group | Not or | + + + Author + + + | Author | [facility] | | | and [place] | + + + | Organization | [facility] | | | and [...] Team Providers + +------+ + | Care Photocopier Technician Name | Role | Phone | + +------+ + PCP | Unavailable | + +------+ + Encounter Details +--------+ + + + + | Date | Type | Department | Care Team | Description | +--------+ + + + + | 04/13/ | Hospital | [facility] | | | | 2001 | Encounter | MED CTR LABORATORY | | | | | | [address] | | | | | | [place] | | | | | | [address] | | | | | | [phone] | | | +--------+ + + + [...]
--- OUTSIDE RECORDS SUMMARY | ~2020-02-01 | XMS | Encounter Summary ---
Demographics + + + | Address | [address] | | | [place] [address] | + + + | Home Phone | | + + + | Preferred Language | Unknown | + + + | Marital Status | | + + + | Moravian Affiliation | 1077 | + + + | Race | White | + + + | Ethnic Group | Not or | + + + Author + + + | Author | [facility] | | | and [place] | + + + | Organization | [facility] | | | [...] Team Providers + +------+ + | Care Floral Clerk Name | Role | Phone | + +------+ + PCP | Unavailable | + +------+ + Encounter Details +--------+ + + + + | Date | Type | Department | Care Team | Description | +--------+ + + + + | 02/15/ | Hospital | [facility] | | | | 2001 - | Encounter | MED CTR MED ONC | | | | | | [address] | | | | 02/17/ | | [place] [address] | | | | 2001 | | [phone] | | | +--------+ + + + [...]
--- OUTSIDE RECORDS SUMMARY | ~2020-02-01 | XMS | Encounter Summary ---
Demographics + + + | Address | [address] | | | [place] [address] | + + + | Home Phone | | + + + | Preferred Language | Unknown | + + + | Marital Status | | + + + | Jew Affiliation | 1077 | + + + | Race | White | + + + | Ethnic Group | Not or | + + + Author + + + | Author | [facility] | | | and [place] | + + + | Organization | [facility] | | | and [...] Team Providers + +------+ + | Care Pipe And Boiler Covers Supervisor Name | Role | Phone | + +------+ + PCP | Unavailable | + +------+ + Encounter Details +--------+ + + + + | Date | Type | Department | Care Team | Description | +--------+ + + + + | 02/18/ | Hospital | [facility] | | | | 2001 | Encounter | MED CTR LABORATORY | | | | | | [address] | | | | | | [place] | | | | | | [address] | | | | | | [phone] | | | +--------+ + + + [...]
--- OUTSIDE RECORDS SUMMARY | ~2020-02-01 | XMS | Encounter Summary ---
Demographics + + + | Address | [address] | | | [place] [address] | + + + | Home Phone | | + + + | Preferred Language | Unknown | + + + | Marital Status | | + + + | Tenriism Affiliation | 1077 | + + + | Race | White | + + + | Ethnic Group | Not or | + + + Author + + + | Author | [facility] | | | and [place] | + + + | Organization | [facility] | | | [...] Team Providers + +------+ + | Care Drop Clipper Name | Role | Phone | + +------+ + PCP | Unavailable | + +------+ + Encounter Details +--------+ + + + + | Date | Type | Department | Care Team | Description | +--------+ + + + + | 10/20/ | Hospital | [facility] | | | | 2002 | Encounter | MED CTR LABORATORY | | | | | | [address] | | | | | | [place] | | | | | | [address] | | | | | | [phone] | | | +--------+ + + + [...]
--- OUTSIDE RECORDS SUMMARY | ~2020-02-01 | XMS | Encounter Summary ---
Demographics + + + | Address | [address] | | | [place] [address] | + + + | Home Phone | | + + + | Preferred Language | Unknown | + + + | Marital Status | | + + + | Sabianist Affiliation | 1077 | + + + | Race | White | + + + | Ethnic Group | Not or | + + + Author + + + | Author | [facility] | | | and [place] | + + + | Organization | [facility] | | [...] Team Providers + +------+ + | Care Account Review Specialist Name | Role | Phone | + +------+ + PCP | Unavailable | + +------+ + Encounter Details +--------+ + + + + | Date | Type | Department | Care Team | Description | +--------+ + + + + | 05/16/ | Hospital | [facility] | | | | 2002 | Encounter | MED CTR LABORATORY | | | | | | [address] | | | | | | [place] | | | | | | [address] | | | | | | [phone] | | | +--------+ + + + [...]
--- OUTSIDE RECORDS SUMMARY | ~2020-02-01 | XMS | Encounter Summary ---
Demographics + + + | Address | [address] | | | [place] [address] | + + + | Home Phone | | + + + | Preferred Language | Unknown | + + + | Marital Status | | + + + | Jehovah'S Witness Affiliation | 1077 | + + + | Race | White | + + + | Ethnic Group | Not or | + + + Author + + + | Author | [facility] | | | and [place] | + + + | Organization | [facility] | | | [...] Team Providers + +------+ + | Care Certified Pharmacy Tech Name | Role | Phone | + +------+ + PCP | Unavailable | + +------+ + Encounter Details +--------+ + + + + | Date | Type | Department | Care Team | Description | +--------+ + + + + | 04/07/ | Hospital | [facility] | | | | 2001 | Encounter | MED CTR LABORATORY | | | | | | [address] | | | | | | [place] | | | | | | [address] | | | | | | [phone] | | | +--------+ + + + [...]
--- OUTSIDE RECORDS SUMMARY | ~2020-02-01 | XMS | Encounter Summary ---
Demographics + + + | Address | [address] | | | [place] [address] | + + + | Home Phone | | + + + | Preferred Language | Unknown | + + + | Marital Status | | + + + | Christianity Affiliation | 1077 | + + + | Race | White | + + + | Ethnic Group | Not or | + + + Author + + + | Author | [facility] | | | and [place] | + + + | Organization | [facility] | | [...] Team Providers + +------+ + | Care Offshore Wind Turbine Technician Name | Role | Phone | + +------+ + PCP | Unavailable | + +------+ + Encounter Details +--------+ + + + + | Date | Type | Department | Care Team | Description | +--------+ + + + + | 05/05/ | Hospital | [facility] | | | | 2001 | Encounter | MED CTR LABORATORY | | | | | | [address] | | | | | | [place] | | | | | | [address] | | | | | | [phone] | | | +--------+ + + + [...]
--- OUTSIDE RECORDS SUMMARY | ~2020-02-01 | XMS | Encounter Summary ---
Demographics + + + | Address | [address] | | | [place] [address] | + + + | Home Phone | | + + + | Preferred Language | Unknown | + + + | Marital Status | | + + + | Presybeterian Affiliation | 1077 | + + + | Race | White | + + + | Ethnic Group | Not or | + + + Author + + + | Author | [facility] | | | and [place] | + + + | Organization | [facility] | | | [...] Team Providers + +------+ + | Care Dispatcher Ship Pilot Name | Role | Phone | + +------+ + PCP | Unavailable | + +------+ + Encounter Details +--------+ + + + + | Date | Type | Department | Care Team | Description | +--------+ + + + + | 09/19/ | Hospital | [facility] | | | | 2000 | Encounter | MED CTR EMERGENCY | | | | | | CENTER [address] | | | | | | [place] | | | | | | [address] | | | | | | [phone] | | | +--------+ + + + [...]
--- OUTSIDE RECORDS SUMMARY | ~2020-02-01 | XMS | Encounter Summary ---
Demographics + + + | Address | [address] | | | [place] [address] | + + + | Home Phone | | + + + | Preferred Language | Unknown | + + + | Marital Status | | + + + | Synagogue Affiliation | 1077 | + + + | Race | White | + + + | Ethnic Group | Not or | + + + Author + + + | Author | [facility] | | | and [place] | + + + | Organization | [facility] | | | and [place] | + + + | Address | Unknown | + + + | Phone | Unavailable | + + + Support + + +---------+ + | Name | Relationship | Address | Phone | + + +---------+ + | Bonine Cifuentes | ECON | Unknown | | + + +---------+ + Care Team Providers + +------+ + | Care Burner Operator Name | Role | Phone | + +------+ + PCP | Unavailable | + +------+ + Encounter Details +--------+ + + + + | Date | Type | Department | Care Team | Description | +--------+ + + + + | 02/24/ | Hospital | [facility] | | | | 2001 | Encounter | MED CTR LABORATORY | | | | | | [address] | | | | | | [place] | | | | | | [address] | | | | | | [phone] | | | +--------+ + + + [...]
--- OUTSIDE RECORDS SUMMARY | ~2020-02-01 | XMS | Encounter Summary ---
Demographics + + + | Address | [address] | | | [place] [address] | + + + | Home Phone | | + + + | Preferred Language | Unknown | + + + | Marital Status | | + + + | Sikhism Affiliation | 1077 | + + + | Race | White | + + + | Ethnic Group | Not or | + + + Author + + + | Author | [facility] | | | and [place] | + + + | Organization | [facility] | | | and [...] Team Providers + +------+ + | Care Brim Welt Sewing Machine Operator Name | Role | Phone | + +------+ + PCP | Unavailable | + +------+ + Encounter Details +--------+ + + + + | Date | Type | Department | Care Team | Description | +--------+ + + + + | 07/20/ | Hospital | [facility] | | | | 2002 | Encounter | MED CTR LABORATORY | | | | | | [address] | | | | | | [place] | | | | | | [address] | | | | | | [phone] | | | +--------+ + + + [...]
--- OUTSIDE RECORDS SUMMARY | ~2020-02-01 | XMS | Encounter Summary ---
Demographics + + + | Address | [address] | | | [place] [address] | + + + | Home Phone | | + + + | Preferred Language | Unknown | + + + | Marital Status | | + + + | Mormonism Affiliation | 1077 | + + + | Race | White | + + + | Ethnic Group | Not or | + + + Author + + + | Author | [facility] | | | and [place] | + + + | Organization | [facility] | | [...] Team Providers + +------+ + | Care Food Beverage Attendant Name | Role | Phone | + +------+ + PCP | Unavailable | + +------+ + Encounter Details +--------+ + + + + | Date | Type | Department | Care Team | Description | +--------+ + + + + | 05/23/ | Hospital | [facility] | | | | 2002 | Encounter | MED CTR LABORATORY | | | | | | [address] | | | | | | [place] | | | | | | [address] | | | | | | [phone] | | | +--------+ + + + [...]
--- OUTSIDE RECORDS SUMMARY | ~2020-02-01 | XMS | Encounter Summary ---
Demographics + + + | Address | [address] | | | [place] [address] | + + + | Home Phone | | + + + | Preferred Language | Unknown | + + + | Marital Status | | + + + | Yarsanism Affiliation | 1077 | + + + | Race | White | + + + | Ethnic Group | Not or | + + + Author + + + | Author | [facility] | | | and [place] | + + + | Organization | [facility] | | [...] Team Providers + +------+ + | Care Marine Service Manager Name | Role | Phone | + +------+ + PCP | Unavailable | + +------+ + Encounter Details +--------+ + + + + | Date | Type | Department | Care Team | Description | +--------+ + + + + | 03/10/ | Hospital | [facility] | | | | 2001 | Encounter | MED CTR LABORATORY | | | | | | [address] | | | | | | [place] | | | | | | [address] | | | | | | [phone] | | | +--------+ + + + [...]
--- OUTSIDE RECORDS SUMMARY | ~2020-02-01 | XMS | Encounter Summary ---
Demographics + + + | Address | [address] | | | [place] [address] | + + + | Home Phone | | + + + | Preferred Language | Unknown | + + + | Marital Status | | + + + | Spiritism Affiliation | 1077 | + + + | Race | White | + + + | Ethnic Group | Not or | + + + Author + + + | Author | [facility] | | | and [place] | + + + | Organization | [facility] | | | [...] Team Providers + +------+ + | Care Peoplesoft Taleo Manager Name | Role | Phone | + +------+ + PCP | Unavailable | + +------+ + Encounter Details +--------+ + + + + | Date | Type | Department | Care Team | Description | +--------+ + + + + | 03/31/ | Hospital | [facility] | | | | 2001 | Encounter | MED CTR LABORATORY | | | | | | [address] | | | | | | [place] | | | | | | [address] | | | | | | [phone] | | | +--------+ + + + [...]
--- OUTSIDE RECORDS SUMMARY | ~2020-02-01 | XMS | Encounter Summary ---
Demographics + + + | Address | [address] | | | [place] [address] | + + + | Home Phone | | + + + | Preferred Language | Unknown | + + + | Marital Status | | + + + | Mu-Ism Affiliation | 1077 | + + + | Race | White | + + + | Ethnic Group | Not or | + + + Author + + + | Author | [facility] | | | and [place] | + + + | Organization | [facility] | | | [...] Team Providers + +------+ + | Care Central Service Supply Distributor Name | Role | Phone | + +------+ + PCP | Unavailable | + +------+ + Encounter Details +--------+ + + + + | Date | Type | Department | Care Team | Description | +--------+ + + + + | 03/24/ | Hospital | [facility] | | | | 2001 | Encounter | MED CTR LABORATORY | | | | | | [address] | | | | | | [place] | | | | | | [address] | | | | | | [phone] | | | +--------+ + + + [...]
--- OUTSIDE RECORDS SUMMARY | ~2020-02-01 | XMS | Encounter Summary ---
Demographics + + + | Address | [address] | | | [place] [address] | + + + | Home Phone | | + + + | Preferred Language | Unknown | + + + | Marital Status | | + + + | Religion Affiliation | 1077 | + + + | Race | White | + + + | Ethnic Group | Not or | + + + Author + + + | Author | [facility] | | | and [place] | + + + | Organization | [facility] | | | [...] Team Providers + +------+ + | Care Provider Relations Representative Name | Role | Phone | + +------+ + PCP | Unavailable | + +------+ + Encounter Details +--------+ + + + + | Date | Type | Department | Care Team | Description | +--------+ + + + + | 03/05/ | Hospital | [facility] | | | | 2001 | Encounter | MED CTR LABORATORY | | | | | | [address] | | | | | | [place] | | | | | | [address] | | | | | | [phone] | | | +--------+ + + + [...]
--- OUTSIDE RECORDS SUMMARY | ~2020-02-01 | XMS | Encounter Summary ---
Demographics + + + | Address | [address] | | | [place] [address] | + + + | Home Phone | | + + + | Preferred Language | Unknown | + + + | Marital Status | | + + + | Restorationist Affiliation | 1077 | + + + [...] Team Providers + +------+ + | Care Mobile Development Manager Name | Role | Phone | + +------+ + PCP | Unavailable | + +------+ + Encounter Details +--------+ + + + + | Date | Type | Department | Care Team | Description | +--------+ + + + + | 03/28/ | Hospital | [facility] | | | | 2001 | Encounter | [facility] | | | | | | [address] | | | | | | [place] | | | | | | [address] | | | | | | [phone] | | | +--------+ + + + [...]
--- OUTSIDE RECORDS SUMMARY | ~2020-02-01 | XMS | Encounter Summary ---
Demographics + + + | Address | [address] | | | [place] [address] | + + + | Home Phone | | + + + | Preferred Language | Unknown | + + + | Marital Status | | + + + | Cheondoism Affiliation | 1077 | + + + | Race | White | + + + | Ethnic Group | Not or | + + + Author + + + | Author | [facility] | | | and [place] | + + + | Organization | [facility] | | | [...] Team Providers + +------+ + | Care Rn Unit Manager Name | Role | Phone | + +------+ + PCP | Unavailable | + +------+ + Encounter Details +--------+ + + + + | Date | Type | Department | Care Team | Description | +--------+ + + + + | 06/06/ | Hospital | [facility] | | | | 2002 | Encounter | [facility] | | | | | | [address] | | | | | | [place] | | | | | | [address] | | | | | | [phone] | | | +--------+ + + + [...]
--- OUTSIDE RECORDS SUMMARY | ~2020-02-01 | XMS | Encounter Summary ---
Demographics + + + | Address | [address] | | | [place] [address] | + + + | Home Phone | | + + + | Preferred Language | Unknown | + + + | Marital Status | | + + + | Mandaen Affiliation | 1077 | + + + [...] Team Providers + +------+ + | Care Peace Officer Name | Role | Phone | + +------+ + PCP | Unavailable | + +------+ + Encounter Details +--------+ + + + + | Date | Type | Department | Care Team | Description | +--------+ + + + + | 04/24/ | Hospital | [facility] | | | | 2001 | Encounter | [facility] | | | | | | [address] | | | | | | [place] | | | | | | [address] | | | | | | [phone] | | | +--------+ + + + [...]
[~2020-02-01 09:46] MED LIST changes: +SPIRONOLACTONE100 MG PO
--- OUTSIDE RECORDS SUMMARY | 2020-02-01 09:50 | XMS ---
PreManage Notification: MCKENZIE FRANK Security Shoder Filler Events No recent Security Events currently on file CRITERIA MET - [facility] - Has Care Guidelines CARE PROVIDERS Fredi [facility] 11/25/2018-Current PHONE: [phone] [facility] Internal Medicine 02/10/2019-Current PHONE: Unknown aMndy has no Care Guidelines for this patient. Care History Medical/Surgical 05/16/2019 [facility] Met with patient in CCU.\T\nbsp; Patient said she was advised to come in for any anemia related issues.\T\nbsp;\T\nbsp;Has a follow up appointment on [address] Borges 11/25/2018 [facility] - PATIENT HAS AN APT WITH DR WARREN ON 11/28/18 - UROLOGIST. 11/25/2018 [facility] - Patient is currently established with [facility]. If patient is seen in the ED during business hours. Please contact CHWs at [facility]. Care Recommendation: This patient has had 5 [...] providing care. E.D. VISIT COUNT (12 MO.) 3 GIANCARLO Perez TOTAL 3 NOTE: Visits indicate total known visits. ED/UCC VISIT TRACKING (12 MO.) 02/01/2020 09:47 GIANCARLO Gonzalez [place] TYPE: Emergency COMPLAINT: - BLOODY STOOL 05/15/2019 15:22 GIANCARLO Gonzalez [place] TYPE: Emergency COMPLAINT: - ANEMIA/ BLOOD TRANSFUSION DIAGNOSES: - Unspecified cirrhosis of liver - Other correction (current) drug therapy - Other complications following infusion, transfusion and thera - technician terminal and repeater (current) use of non-steroidal anti-inflammatories - Anemia, unspecified - Allergy status to other drugs, medicaments and biological sub - Allergy status to sulfonamides status - technician terminal and repeater (current) use of aspirin - Other specified diseases of liver 02/07/2019 23:34 GIANCARLO Gonzalez [place] TYPE: Emergency COMPLAINT: - PASSED OUT INPATIENT VISIT TRACKING (12 MO.) 05/15/2019 15:22 GIANCARLO Gonzalez [place] TYPE: Observation COMPLAINT: - ANEMIA DIAGNOSES: - Other complications following infusion, transfusion and thera - Allergy status to sulfonamides status - Anemia, unspecified - Other correction (current) drug therapy - FPC (current) use of non-steroidal anti-inflammatories - Unspecified cirrhosis of liver - technician terminal and repeater (current) use of aspirin - Allergy status to other drugs, medicaments and biological sub - Other specified diseases of liver 02/13/2019 11:13 GIANCARLO Gonzalez [place] TYPE: Medical Surgical COMPLAINT: - DECONDITIONING DIAGNOSES: - Other cirrhosis of liver - Unspecified fall, subsequent encounter - Allergy status to sulfonamides status - Gastro-esophageal reflux disease without esophagitis - Unspecified fall, subsequent encounter - Unspecified place in unspecified non-institutional (private) - Acute posthemorrhagic anemia - Multiple fractures of ribs, left side, subsequent encounter f - Hepatic failure, unspecified without coma - Hypoxemia - Acute posthemorrhagic anemia - Allergy status to other drugs, medicaments and biological sub - Unspecified place in unspecified non-institutional (private) - Gastro-esophageal reflux disease without esophagitis - Other pancytopenia - Portal hypertension - Other cirrhosis of liver - Allergy status to sulfonamides status - Other correction (current) drug therapy - Portal hypertension - Other correction (current) drug therapy - Other pancytopenia - Hypoxemia - Hepatic failure, unspecified without coma - Allergy status to other drugs, medicaments and biological sub 02/10/2019 08:49 GIANCARLO Gonzalez [place] TYPE: Medical Surgical COMPLAINT: - GI BLEED/ANEMIA DIAGNOSES: - Do not resuscitate - Other roasterman (current) drug therapy - Insomnia, unspecified - Melena - Multiple fractures of ribs, left side, initial encounter for - Acute respiratory failure with hypoxia - Acute posthemorrhagic anemia - Allergy status to sulfonamides status - Iron deficiency anemia secondary to blood loss (chronic) - Hepatic failure, unspecified without coma - Secondary esophageal varices without bleeding - Insomnia, unspecified - Fall on same level, unspecified, initial encounter - Melena - Fall on same level, unspecified, initial encounter - Allergy status to sulfonamides status - Do not resuscitate - Unspecified place in unspecified non-institutional (private) - Hepatic failure, unspecified without coma - Other roasterman (current) drug therapy - Allergy status to other drugs, medicaments and biological sub - Allergy status to other drugs, medicaments and biological sub - Unspecified place in unspecified non-institutional (private) - Iron deficiency anemia secondary to blood loss (chronic) - Acute respiratory failure with hypoxia - Multiple fractures of ribs, left side, initial encounter for - Secondary esophageal varices without bleeding [email or web address]
[2020-02-01] MEDS ORDERED: FUROSEMIDE40 MG PO (10:01)
--- NOTE | 2020-02-01 12:50 | EKG ---
[facility] [address] [facility] [place] [address] Signed Normal sinus rhythm Right bundle branch block Abnormal ECG When compared with ECG of 07-FEB-2019 23:56, premature ventricular complexes are no longer present Right bundle branch block is now present Confirmed by RIVER REBOLLAR MD ([id number]) on 02/01/2020 12:49:59 PM Electronically Signed By: RIVER REBOLLAR MD 02/01/20 1250 PATIENT NAME: MCKENZIE FRANK Electrocardiogram DATE OF : 42 PHYSICIAN: RIVER REBOLLAR MD REPORT #: [id number] REPORT IS CONFIDENTIAL AND NOT TO BE RELEASED WITHOUT AUTHORIZATION
[2020-02-01] MEDS ORDERED: ALENDRONATE SOD70 MG PO (16:17)
--- NOTE | 2020-02-01 17:00 | NUR ---
Patient arrives to unit via stretcher. Patient able to self-transfer to hospital bed with minimal assist. Patient reports "I feel weak." Vital signs taken, assessment complete. Patient denies abdominal pain or nausea. Patient reports tenderness in the epigastric region, as well as on the LUQ. IV abx hung and IV potassium infusing. Patient able to tolerate sips of water, jello, and chicken broth. Denies nausea and pain after eating. No further needs at this time, call light within reach.
--- NOTE | 2020-02-01 18:40 | NUR ---
Patient up to commode with 1PA, weak on feet. Medium black, tarry bowel movement produced. 250 mls of shawn urine produced. Work of breathing increased with movement. 2LNC in place, SpO2 of 100% while ambulating. IV abx and potassium finished infusing. LR hung and infusing at 100 mls/hr. Warm blankets provided, denies needs at this time. Call light within reach.
--- NOTE | 2020-02-01 20:42 | NUR ---
PATIENT ASSESSMENT COMPLETED AND MEDS GIVEN. PATIENT DENIES PAIN. ASSISTED TO BEDSIDE COMMODE. LOOSE, GREEN STOOL AND VOID UNMEASURED. IV SITES WNL AND FLUSHED. PATIENT BROUGHT ICE WATER. PATIENT LEFT RESTING IN BED WITH CALL LIGHT IN REACH.
--- NOTE | 2020-02-01 22:15 | NUR ---
PATIENT ABX GIVEN. PATIENT RESTING IN BED WITH EYES CLOSED AND CALL LIGHT WITHIN REACH.
--- NOTE | 2020-02-01 23:59 | NUR ---
PATIENT ASSESSMENT COMPLETED. PIVOTED TO THE COMMODE WITH NURSE ASSIST. GREEN LIQUID STOOL. DENIED PAIN. IV SITES WNL. PATIENT LEFT RESTING IN BED AND DENIED FURTHER NEEDS.
--- NOTE | 2020-02-02 03:49 | NUR ---
PATIENT USED CALL LIGHT APPROPRIATELY FOR ASSISTANCE TO COMMODE. PIVOTED WITH NURSE ASSISTANCE. UNMEASURABLE LIQUID, GREEN STOOL. PATIENT DENIED PAIN. LUNGS CLEAR THROUGHOUT. IV SITES WNL. PATIENT ASSISTED WITH REPOSITIONING AND BROUGHT ICE WATER. AFTER RETURNING TO BED PATIENT STATED "I FEEL SO WORN OUT". LEFT RESTING IN BED WITH CALL LIGHT IN REACH.
--- NOTE | 2020-02-02 06:37 | NUR ---
PATIENT LABS DRAWN FROM R. FOREARM. TOLERATED WELL. ABX HUNG. PATIENT PIVOTED TO BEDSIDE COMMODE WITH NURSE ASSIST. VOIDED 200ML AND UNMEASURED GREEN STOOL. PATIENT ASKED THAT HER NC BE REMOVED. PATIENT DESATTED TO 86%. NC REPLACED AND TITRATED O2 TO 1L. 02 INCREASED TO 95%. PATIENT REQUESTED FOOD AND CLEAR TRAY WAS ORDERED. PATIENT LEFT RESTING IN BED AND DENIED FURTHER NEEDS.
--- NOTE | 2020-02-02 08:07 | NUR ---
Patient sitting up in bed watching tv. Patient denies pain or nausea. Patient reports feeling "very hungry." Clear liquid tray delivered. LR infusing at 100 mls/hr, IV abx hung and infusing at 200 mls/hr. AM medications given. Vital signs taken, assessment complete. Ice water provided. Denies further needs at this time, call light within reach.
--- NOTE | 2020-02-02 09:15 | NUR ---
OT in room working with patient
--- NOTE | 2020-02-02 09:37 | NUR ---
Dr. Mcintosh in room to assess patient and discuss POC
--- NOTE | 2020-02-02 10:03 | NUR ---
Patient sitting up in chair watching tv. Denies pain or nausea. IV site saline locked. IV abx finished infusing. Denies needs at this time, call light within reach.
--- NOTE | 2020-02-02 10:44 | NUR ---
PHYSICAL THERAPY IN ROOM WORKING WITH PT. REPORTED GREEN, RUNNY STOOLS WHEN USING BATHROOM.
--- NOTE | 2020-02-02 11:18 | NUR ---
Patient sitting up in chair watching tv. Denies needs at this time, call light within reach.
--- NOTE | 2020-02-02 11:28 | NUR ---
SPOKE WITH PATIENT BY ROOM PHONE DUE TO PENDING COVID TEST. PATIENT ORIENTED AND ABLE TO SPEAK. PATIENT LIVES ON OWN IN 5TH WHEEL. HAS FEW STEPS UP, CURRENTLY HAS NOT HAD ANY ISSUES WITH STEPS. SHE DOES NOT USE DME, SHE STATES SHE DOES HAVE A FWW IN STORAGE AND HAS ACCESS TO THIS IF NEEDED. PATIENT IS RETIRED. PATIENT STILL DRIVES AND CAN GET TO APPOINTMENTS. PATIENT HAS LOCAL PCP AND PHARMACY. PATIENT STATES SHE HAS NO CONCERNS FOR AFFORDING MEDICATIONS, FOOD OR UTILITIES. PATIENT FEELS SAFE TO RETURN HOME AT DISCHARGE. SHE STATES SHE JUST FINISHED PHYSICAL THERAPY AND DOES FEEL WEAK. BUT SHE FEELS SHE WILL BE DOING BETTER SHE FEELS BETTER. WE DISCUSSED THAT BY DISCHARGE WE WILL BE ABLE TO SEE WHAT F/U HELP SHE MAY NEED AND WILL HELP HER WITH THIS. SHE STATES UNDERSTANDING.
--- NOTE | 2020-02-02 11:28 | NUR ---
MED REC COMPLETE
--- NOTE | 2020-02-02 12:00 | NUR ---
Patient sitting in chair watching tv. Lunch delivered. Patient denies needs, call light within reach.
--- NOTE | 2020-02-02 13:05 | NUR ---
Patient sitting in chair watching tv. Patient up to toilet with SBA, steady on feet. Green liquid BM produced, with 25 mls of yellow urine. Patient states "I feel like I have to pee but I can't let it out." Patient returns to bed aftering requesting to take a nap. Increased WOB noted after ambulating. Vital signs taken. Warm blanket provided, denies further needs at this time. Call light within reach.
--- NOTE | 2020-02-02 14:01 | NUR ---
Called Dr. Mcintosh to notify him regarding urine output for patient. Bladder scan showed 351 mls of urine in bladder. Orders acknowledged to continue monitoring patient urine output and continue bladder scanning. Will update MD as follows.
--- NOTE | 2020-02-02 16:00 | NUR ---
Patient up to toilet for BM and voided 225 mls of dark yellow urine. Dyspnea noted with exertion. Patient returned to chair, warm blanket provided. Stool noted to be green and liquidy. Patient informed of positive result on c. diff stool sample. New orders acknowledged for CARON crum (see MAR). Patient denies further needs at this time, call light within reach.
--- NOTE | 2020-02-02 17:30 | NUR ---
Patient sitting up in chair watching tv. PM medications given. Dinner delivered, water refreshed. Patient denies needs at this time, call light within reach.
--- NOTE | 2020-02-02 19:36 | PATH ---
[facility] [address] [place], [place] [address] Signed ORDERING PHYSICIAN: Olman Bejarano MD PATIENT NAME: MCKENZIE FRANK GENDER: F : 1940 Prior History: No cases found. SPECIMEN(S): No Source Given MOLECULAR PATHOLOGY RESULTS: SARS-CoV-2 Not Detected ADDITIONAL NOTES.: The [place] Fusion SARS-CoV-2 Assay is a multiplex real-time PCR (RT-PCR) in vitro diagnostic test intended for the qualitative detection of RNA from SARS-CoV-2 from individuals who meet COVID-19 clinical and/or epidemiological criteria. In general, SARS-CoV-2 RNA can be detected during the acute phase of infection. Positive results indicate the presence of SARS-CoV-2 RNA. Clinical correlation with patient history and other diagnostic information is necessary to determine patient infection status. Positive results do not rule out bacterial infection or co-infection with other viruses. Negative results do not preclude SARS-CoV-2 infection and should not be used as the sole basis for patient management decisions. Negative results must be combined with other clinical observations, patient history, and epidemiological information. The [place] Fusion SARS-CoV-2 Assay is not yet approved or cleared by the [place] FDA. When there are no FDA-approved or cleared tests available, and other criteria are met, FDA can make tests available under an emergency access mechanism called an Emergency Use Authorization (EUA). The EUA for this test is supported by the Computer Scientist of Health and Human Service's (HHS's) declaration that circumstances exist to justify the emergency use of in vitro diagnostics for the detection and/or diagnosis of the virus that causes COVID-19. This EUA will remain in effect for the duration of the COVID-19 declaration justifying emergency of IVDs, unless it is terminated or revoked by FDA, after which the test may no longer be used. The [place] Fusion SARS-CoV-2 Assay is for use only under EUA PATIENT NAME: MCKENZIE FRANK PATHOLOGY DATE OF : 42 REPORT #: [id number] PHYSICIAN: YUKI PATHOLOGY PCP: SIERRA ARANDA MD REPORT IS CONFIDENTIAL AND NOT TO BE RELEASED WITHOUT AUTHORIZATION [facility] [address] [place] [id number] Signed in [place] laboratories certified under the Clinical Laboratory Improvement Amendments of 1988 (CLIA) to perform high complexity tests. [facility] is certified under CLIA to perform high complexity clinical laboratory testing. PERFORMING LABORATORY.: Molecular testing was performed by [facility] [place] [address] (Nuclear Reactor Operator: Fritz Bran D.O.; CLIA#: [id number]) Diagnostician: System Interface Pathologist Electronically Signed 02/02/2020 Copies: ~ PATIENT NAME: MCKENZIE FRANK PATHOLOGY DATE OF : 42 REPORT #: [id number] PHYSICIAN: YUKI DOMINGO PCP: SIERRA ARANDA MD REPORT IS CONFIDENTIAL AND NOT TO BE RELEASED WITHOUT AUTHORIZATION
--- NOTE | 2020-02-02 20:56 | NUR ---
PATIENT USED CALL LIGHT APPROPRIATELY TO REQUEST ASSISTANCE FROM BATHROOM. PATIENT AMBULATED WITH STEADY GAIT. REMOVED FROM SLUG PRESS OPERATOR PER PROVIDER ORDER. PATIENT ASSESSMENT COMPLETED. PATIENT DENIED PAIN. IV SITES WNL AND FLUSHED. LUNGS CLEAR THROUGHOUT. PATIENT LEFT RESTING IN BED WITH CALL LIGHT IN REACH.
--- NOTE | 2020-02-02 21:25 | NUR ---
PATIENT MEDS GIVEN. PATIENT RESTING IN BED AND DENIED FURTHER NEEDS.
--- NOTE | 2020-02-02 22:28 | NUR ---
CALL LIGHT ANSWERED. SBA TO RESTROOM. pt VERBALIZES UNDERSTANDING TO USE CALL LIGHT WHEN FINISHED.
--- NOTE | 2020-02-02 22:59 | NUR ---
SBA BACK TO BED FROM RESTROOM AFTER LOOSE GREEN BM, HAND HYGIENE PERFORMED BY pt. pt ON 1L OXYGEN BY NC, SPO2 WNL. ASSISTED TO REPOSTION. CALL LIGHT IN REACH. pt REQUESTED CURTAIN SHUT. NO ADDITIONAL REQUESTS.
--- NOTE | 2020-02-03 02:02 | NUR ---
ROUNDED ON PT. IN BED WITH LIGHTS OFF. BREATHING EVEN AND UNLABORED. NO APPARENT NEEDS AT THIS TIME.
--- NOTE | 2020-02-03 04:00 | NUR ---
CALL LIGHT ANSWERED. SBA TO RESTROOM FOR VOID. VERBALIZES UNDERSTANDING TO USE CALL LIGHT WHEN FINISHED.
--- NOTE | 2020-02-03 04:21 | NUR ---
PATIENT USED CALL LIGHT APPROPRIATELY FOR ASSISTANCE FROM THE BATHROOM. VOIDED 250ML KERWIN URINE AND GREEN LIQUID BM. PATIENT AMBULATED WITH STEADY GAIT. VITALS TAKEN AND PATIENT GIVEN WATER. PATIENT LEFT RESTING IN BED AND DENIED FURTHER NEEDS.
--- NOTE | 2020-02-03 08:04 | NUR ---
PATIENT AWAKE UPON INIIAL ASSESSMENT. REPORT REC'D FROM PHYSICAL EDUCATION PROFESSOR. PT REPORTS FEELING PRETTY GOOD OVERALL. BREAKFAST ORDERED FOR PATIENT. PT UP TO BATHROOM AND THEN INTO CHAIR. PT LUNGS CLEAR TO AUSCULTATION. PT ON 1 L NC BUT THIS TITRATED OFF TO SEE HOW PATIENT DOES WITHOUT. PT DENIES HAVING ANY PAIN. C-DIFF PRECAUTIONS IN PLACE. CONTINUE TO MONITOR.
--- NOTE | 2020-02-03 09:42 | NUR ---
PATIENT SITTING IN CHAIR AND FINISHES HER BREAKFAST OF FRUIT AND A FEW BITES OF YOGURT. PHYS THERAPY NOW IN ROOM WITH PATIENT. PT GIVEN ORAL POTASSIUM, LASIX, AND SPIRONOLACTONE. CONTINUE TO MONITOR. PT REMAINS ON 1 L NC.
--- NOTE | 2020-02-03 10:03 | NUR ---
PATIENT FINISHES WORKING WITH PHYS THERAPY. INCENTIVE SPIROMETRY NOW IN ROOM AND PATIENT WORKING WITH THIS TOOL. PT NOW 90-92% ON ROOM AIR.
--- NOTE | 2020-02-03 11:42 | NUR ---
DR. GREENE IN ROOM AND EVALUATES PATIENT. PT BACK FROM 2 VIEW CHEST XRAY. PT WILL STAY INTO TOMORROW AND LIKELY D/C THEN. LUNCH ORDERED. ASSESSMENT UNCHANGED FROM EARLIER TODAY. CONTINUE CHARLES ONITOR.
--- NOTE | 2020-02-03 12:02 | NUR ---
PATIENT SITTING IN CHAIR AND HER LUNCH ARRIVES. PT GIVEN HAND CREDIT RISK ANALYTICS MANAGER PRIOR TO EATING. CALL LIGHT WITHIN REACH. CONTINUE TO MONITOR.
--- NOTE | 2020-02-03 12:30 | NUR ---
PATIENT USES CALL LIGHT AND STATES SHE NEEDS TO GET UP TO USE BATHROOM. STANDBY ASSIST TO BATHROOM. PT INSTRUCTED TO CALL WHEN SHE IS READY TO BE DONE. NEW ATTENDS PROVIDED.
--- NOTE | 2020-02-03 13:00 | NUR ---
Notified by RN from CCU, pt. would like help finding someone to assist with cleaning her 5th wheel. Pt had diarrhea prior to admit. Rn notified, pt will need to pay out of pocket and will need to find a house keeper.
--- NOTE | 2020-02-03 13:30 | NUR ---
REPORT GIVEN TO SINTIA RAYMUNDO ON MED SURG. ALL QUESTIONS ANSWERED. PT MOVED OVER IN CHAIR.
--- NOTE | 2020-02-03 13:53 | NUR ---
PT ARRIVED TO FLOOR VIA CHAIR. PT REPORTS LOW GRADE HEADACHE AND REQUEST TYLENOL. ON RA AT %100 SATURATION BUT STILL REPORTING SOME SOB. RR 16. ORIENTED TO ROOM. CALL LIGHT IN REACH.
--- NOTE | 2020-02-03 14:40 | NUR ---
PATIENT WAS ADMITTED AT HIGH RISK FOR MALNUTRITION DUE TO 24-35 LB WEIGHT LOSS. PATIENT STATES SHE HAS LOST FLUID WEIGHT AWHILE AGO FROM A LIVER CONDITION SHE HAS. SHE CURRENTLY IS IN THE HOSPITAL FOR WHAT WAS THOUGHT TO BE COLITIS WITH SOME BLOOD IN LOOSE STOOLS, BUT SHE HAS C. DIFF. PATIENT ASKED IF THERE WAS A DRINK SHE SHOULD BUY WHEN SHE GOES HOME TO REPLENISH HER GUT. SHE DOES NOT LIKE YOGURT AND NORMALLY DOES NOT TAKE A PROBIOTIC. I MENTIONED THERE'S KEFIR, BUT IF SHE DOESN'T LIKE YOGURT SHE PROBABLY WON'T LIKE KEFIR. THERE'S ALSO KOMBUCHA WHICH SHE IS NOT FAMILIAR WITH. I ALSO EXPLAINED THAT WHAT WILL BE BENEFICIAL OVERALL IS EATING OR DRINKING FOODS WITH PROBIOTICS BUT THEN EATING PLENTY OF FIBER FROM A VARIETY OF FRUITS, VEGGIES, BEANS/LEGUMES, AND WHOLE GRAINS TO FEED THE GUT CHRIS SO THEY DON'T DISAPPEAR. PROVIDED A PRINTOUT ON DIET FOR C. DIFF WHICH SHE WAS THANKFUL FOR. MY NAME AND OFFICE # PROVIDED ON THE HANDOUT IN CASE SHE HAS MORE QUESTIONS. CONTINUE REGULAR DIET AND PROBIOTIC WHILE HERE.
--- NOTE | 2020-02-03 15:26 | NUR ---
CASE MANAGEMENT IN WITH PT.
--- NOTE | 2020-02-03 15:30 | NUR ---
Spoke with Sydnee. Reviewed needs. She states she has very little income, she does drive herself and is able to care for self. Discussed assistance with cleaning trailer and notifed this would be something she would need to do on her own. She denies having funds to pay for house keeper. I discussed I can call [facility] and see if she would qualify for medicaid and possible cg. She does not think she does, she had an assessment approx. two months ago. Pt is able to care for self and drives. Her daughter lives in town, but she is not welcome in her daughter's home. She feels she needs to be proactive and get some place where she can have assistance. Her sister lives in [place] and she will discuss with her if she could park her 5th wheel on her property. She states it is very difficult to get into an RV park. She states Dr. Mcintosh discuss FDC with her, she does not have the money to pay. Message left at [facility] to check if they can evaluate her. Will fu with pt and [facility] tomorrow.
--- NOTE | 2020-02-03 16:49 | NUR ---
PATIENT REQUESTS SUPERVISION TO BATHROOM. AMBULATES WELL INDEPENDENTLY. RETURNS TO CHAIR TO WATCH TV. MEDS GIVEN. NO FURTHER REQUESTS.
--- NOTE | 2020-02-03 17:17 | NUR ---
PATIENT SITTING UP IN CHAIR. VITAL SIGNS AND I&O DONE. CALL LIGHT WITHIN REACH. NO OTHER NEEDS AT THIS TIME
--- NOTE | 2020-02-03 19:50 | NUR ---
PATIENT CALLED WANTING TO HAVE THE BLINDS DOWN. DONE.
--- NOTE | 2020-02-03 20:02 | NUR ---
REPORT RECEIVED FROM ZACKARY PATRICIO. PATIENT SITTING UP IN BED, ON ROOM AIR. CALL LIGHT IN REACH, NO REQUESTS AT THIS TIME
--- NOTE | 2020-02-03 21:45 | NUR ---
pt SITTING UP IN BED. SCHEDULED MEDICATIONS PROVIDED. pt DENIES PAIN AT THIS TIME. VSS. IS AND OS COMPLETE. CALL LIGHT IN REACH. NO ADDITIONAL REQUESTS.
--- NOTE | 2020-02-03 22:46 | NUR ---
ASSESSMENT COMPLETE. DC'D L ANKLE IV DUE TO PAIN, INFILTRATION. BOWEL TONES ACTIVE. PT AMBULATED TO BR TO VOID WITH SBA. BACK TO BED. PT PERFORMED HAND HYGIENE. REPORTS NO PAIN OR NAUSEA. BACK TO BED. ON ROOM AIR. NO FURTHER NEEDS AT THIS TIME. CALL LIGHT IN REACH.
--- NOTE | 2020-02-04 00:56 | NUR ---
ROUNDED ON PATIENT, IN BED WITH LIGHTS OFF. BREATHING EVEN AND UNLABORED. NO APPARENT NEEDS.
--- NOTE | 2020-02-04 02:12 | NUR ---
ANSWERED CALL LIGHT, IV PUMP ALARMING. NEW FLUIDS HUNG, IVF INFUSING WNL. ASSESSMENT COMPLETE, VS AND I/O'S COMPLETE. INCISION COVERED, DRESSING C/D/I. PT REPORTS 3/10 PAIN, STATES IT IS TOLERABLE FOR HER. NO SOB OR DISCOMFORT. NO SWELLING NOTED AROUND INCISION SITE. SCD'S IN PLACE. NO OTHER NEEDS REPORTED AT THIS TIME.
--- NOTE | 2020-02-04 03:41 | NUR ---
PATIENT CALLED. 1 SBA TO THE BATHROOM. PATIENT IS BACK IN BED. NO OTHER NEEDS AT THIS TIME. CALL LIGHT IN REACH.
--- NOTE | 2020-02-04 04:18 | NUR ---
ROUNDED ON PATIENT. PATIENT IN BED WITH EYES CLOSED, LIGHTS OFF. BREATHING EVEN AND UNLABORED. CALL LIGHT WITHIN REACH. BED IN LOW POSITION. NO FURTHER NEEDS EVIDENT AT THIS TIME
--- NOTE | 2020-02-04 05:49 | NUR ---
VS AND I/O'S COMPLETE, ASSESSMENT COMPLETE. LAB IN ROOM. SCD'S IN PLACE. PATIENT IN BED, HOB ELEVATED. NO PAIN OR NAUSEA AT THIS TIME. WILL RETURN WITH SCHEDULED MEDS
--- NOTE | 2020-02-04 06:15 | NUR ---
ROUNDED ON PATIENT, ASSESSMENT COMPLETE, VS AND I/O'S COMPLETE. PATIENT IN BED RESTING WITH LIGHTS OFF. STATES NO PAIN, DISCOMFORT, N/V/D AT THIS TIME. CALL LIGHT IN REACH, NO FURTHER NEEDS.
--- NOTE | 2020-02-04 06:24 | NUR ---
PATIENT ABLE TO SLEEP THIS SHIFT. AMBULATED TO BR TO VOID WITH SBA. USES CALL LIGHT APPROPRIATELY. STATES NO SOB, PAIN, N/V/D THIS SHIFT. A+O, VSS, BOWEL TONES ACTIVE. ON 1 L NC FOR SPO2 IN HIGH 80'S, IMMEDIATELY RETURNED TO 93-95%. IV IN R ANKLE WNL.
--- NOTE | 2020-02-04 07:13 | NUR ---
THIS RN RECEIVED REPORT FROM SITA PATRICIO AND ANH PATRICIO. PT APPEARS TO BE RESTING THIS AM SO REPORT DONE OUTSIDE OF THE ROOM
--- NOTE | 2020-02-04 08:15 | NUR ---
ANSWERED CALL LIGHT, SBA TO BR. FACE WASHED, HAIR AND TEETH BRUSHED. PATIENT BACK TO CHAIR, CALL LIGHT IN REACH, WILL ORDER BREAKFAST WHEN SHES READY. FRESH ICE WATER WAND WARM BLANKET PROVIDED
[2020-02-04] MEDS ORDERED: VANCOMYCIN HCL125 MG PO (10:07)
--- NOTE | 2020-02-04 10:56 | NUR ---
PT ALERT, ORIENTED AND SITTING IN CHAIR WAITING FOR DC. PT SAID SHE IS FEELING MUCH BETTER. ADRI MCDONALD
[2020-02-04] MEDS ORDERED: DOXYCYCLINE HY100 MG PO (15:05)
== END 2020-02-04 11:30 | disposition home or self-care (01) | DRG 371 ==
LOC: ED 09:46 → CCU 16:13 → MS 02-03 13:57
PROVIDERS: ADMIT Student in an Organized Health Care Education/Training Program; ATTEND Student in an Organized Health Care Education/Training Program
DX: A04.72 Enterocolitis due to Clostridium difficile, not specified as recurrent (principal); J96.01 Acute respiratory failure with hypoxia; D61.818 Other pancytopenia; Z20.828 Contact with and (suspected) exposure to other viral communicable diseases; A04.5 Campylobacter enteritis; K62.3 Rectal prolapse; D69.6 Thrombocytopenia, unspecified; K74.69 Other cirrhosis of liver; G89.29 Other chronic pain; I10 Essential (primary) hypertension; Z66 Do not resuscitate; Z88.8 Allergy status to other drugs, medicaments and biological substances; Z88.2 Allergy status to sulfonamides; Z79.899 Other long term (current) drug therapy
CPT/HCPCS: 36415; 71045; 71046; 74177; 80048; 80053; 81001; 83735; 83880; 85025; 85049; 85610; 85730; 86850; 86900; 86901; 87045; 87046; 87077; 87205; 87324; 87449; 87493; 93005; 93010; 96361; 97110; 97116; 97162; 97165; 99285-25; C9113; C9803; J0744; J2405; J3480; J7030; J7060; J7121

== ENCOUNTER 2020-09-17 07:58 | Day surgery (SDC) | payer MEDICARE, OTHER, MEDICAID ==
[~2020-09-17] VITALS: Ht 147.3 cm; Wt 56.8 kg
[~2020-09-17 07:58] MED LIST changes: +ALENDRONATE SOD70 MG PO; +DOXYCYCLINE HY100 MG PO; +VANCOMYCIN HCL125 MG PO
--- NOTE | 2020-09-17 10:39 | NUR ---
09/17/20 1039 Mariam Farrell 1034: PT ARRIVES TO PACU VIA STRETCHER FOR RECOVERY. NON AROUSABLE, OPA IN PLACE. VSS, RESP EVEN AND UNLABORED. O2 SAT STABLE >98% ON 8L VIA FACEMASK. SCDS IN PLACE 1039: ICE APPLIED TO INCISIONAL SITE
--- NOTE | 2020-09-17 11:48 | NUR ---
ON RETURN FROM PACU, PT DENIES PAIN OR NAUSEA. ICE BAG TO INCISION PER ORDER. TAKING SIPS OF WATER AND CRACKERS ARE PROVIDED. CALL LIGHT AT HAND.
--- NOTE | 2020-09-17 12:44 | NUR ---
STEADY ON FEET WITH ONE PERSON STAND BY ASSIST FOR AMBULATION TO BR AT 1155. REPORTS INCREASING PAIN WITH MOVEMENT WHICH WAS MEDICATED PER EMAR. VOIDED 100ML KERWIN URINE AND RETURNED TO BED WITH STAND BY ASSIST. REVIEWED DISCHARGE INSTRUCTIONS WITH PT AND . RX GIVEN TO SKIP. TEACH BACK USED FOR DC INSTRUCTIONS AND DRESSING CARE. ASSISTED PT DRESSING AND DISCUSSED SAFETY AND FALL PREVENTION UPON RETURNING HOME. DRESSING REMAINS CDI.
--- NOTE | 2020-09-18 05:50 | OR ---
[facility] [address], [place] [address] Signed DATE OF OPERATION: 09/17/2020 SURGEON: Sameer Mai MD PREOPERATIVE DIAGNOSIS: Reducible periumbilical trocar site incisional hernia (5 mm). POSTOPERATIVE DIAGNOSIS: Reducible periumbilical trocar site incisional hernia (5 mm). PROCEDURE: Primary repair of periumbilical trocar site incisional hernia. ESTIMATED BLOOD LOSS: None. INDICATIONS: Sydnee is a 80-year-old female who underwent a laparoscopic cholecystectomy many years ago. Unfortunately injected some cleaning agent during the intraoperative cholangiogram which scarred her liver. She now has portal hypertension and splenomegaly with sequestration of her platelets. However, she has developed a reducible hernia at the laparoscopic trocar site next to the umbilicus. It has been difficult because her pants come right across the area. She said it has been a daily issue for her. She also is known to have abdominal ascites, but it is minimal and controlled with medications. She still drives herself around town and is quite independent in that regard. She also has significant cardiac history as documented in the chart. She had been asked to see me with respect to this reducible asymptomatic incisional hernia. In the office I met with Sydnee and we felt that the hernia was going to be a bit larger on palpation. We thought maybe 2 or 3 cm. In due time, that was actually the lateral edge of the hernia sac rather than the actual fascial defect. We had a long discussion regarding her medical history with respect to her potential surgery. She decided she wanted to proceed. She is well aware of the risks including, but not limited to bleeding, infection, scarring, change in contour of the skin, damage to bowel, infection of the ascitic fluid, recurrent hernias and chronic pain. She had expressed understanding and wished to proceed. DESCRIPTION OF PROCEDURE: I met with Sydnee and her in our preop area. We all agreed on the paraumbilical hernia and marked it appropriately. After this, she was taken in the operating room and placed in the supine position under general LMA anesthesia. She was given preoperative Electronically Signed By: SAMEER MAI MD 09/18/20 0550 PATIENT NAME: SYDNEE FRANK OPERATIVE REPORT DATE OF : 42 REPORT #: [id number] PHYSICIAN: SAMEER MAI MD PCP: DEONDRE ARANDA MD REPORT IS CONFIDENTIAL AND NOT TO BE RELEASED WITHOUT AUTHORIZATION [facility] [address], [place] [address] Signed antibiotics along with SCDs applied to the lower extremities. We did not give her any heparin or Lovenox because of the portal hypertension and risk of bleeding. She was then prepped and draped in the usual sterile fashion. We utilized a standard vertical periumbilical incision and carried it down around the hernia sac bluntly and with the cautery. We carefully opened the hernia sac at the top and she had some ascitic fluid that the base was a knuckle of small bowel that we easily reduced. We divided the hernia sac from the fascial defect and found that to be small, maybe 5 mm. We used our straight Kimberly to elevate the abdominal wall and we gave her some paralytic agent for about 10 minutes so we could close the fascial defect primarily while lifting the abdominal wall away from her bowel. We did this with several interrupted [id number] #1 Prolene sutures along with a few simple #1 Prolene sutures. After this local anesthetic was injected in the abdominal wall along with the subcutaneous tissues. We brought the umbilical skin back down to the fascial defect with several interrupted 2-0 PDS sutures along that repair to help seal that repair. We then used interrupted 3-0 Monocryl sutures to bring the subcutaneous tissues back together in the midline in layers again to close the space and help seal the tissues. Her last layer involved the subcutaneous adipose tissue along with some of the dermis. We then closed the skin and dermis with a running 5-0 fast absorbing plain gut suture. Dry gauze and tape were then applied. Sydnee was then awakened from her anesthesia, extubated in the OR, and taken to recovery room in stable condition. Sameer Mai MD ALB/MODL /[id number] cc: MD Deondre Marshall MD Andrew L Bower, MD Copies: DIMA MARROQUIN MD, MALCOLM MD Electronically Signed By: SAMEER MAI MD 09/18/20 0550 PATIENT NAME: SYDNEE FRANK OPERATIVE REPORT DATE OF : 42 REPORT #: [id number] PHYSICIAN: SAMEER MAI MD PCP: DEONDRE ARANDA MD REPORT IS CONFIDENTIAL AND NOT TO BE RELEASED WITHOUT AUTHORIZATION [facility] [address] [facility], [place] [address] Signed SAMEER MAI MD ~ Electronically Signed By: SAMEER MAI MD 09/18/20 0550 PATIENT NAME: SYDNEE FRANK STEVEN OPERATIVE REPORT DATE OF : 42 REPORT #: [id number] PHYSICIAN: SAMEER MAI MD PCP: DEONDRE ARANDA MD REPORT IS CONFIDENTIAL AND NOT TO BE RELEASED WITHOUT AUTHORIZATION
== END 2020-09-17 12:35 | disposition home or self-care (01) ==
LOC: DS 07:58
PROVIDERS: ATTEND Colon & Rectal Surgery
PROC: 0WQF0ZZ Repair Abdominal Wall, Open Approach (ICD-10-PCS; principal; 2020-09-17 08:30)
DX: K43.2 Incisional hernia without obstruction or gangrene (principal); I10 Essential (primary) hypertension; I27.20 Pulmonary hypertension, unspecified; K76.6 Portal hypertension; R16.1 Splenomegaly, not elsewhere classified; R18.8 Other ascites; M48.54XA Collapsed vertebra, not elsewhere classified, thoracic region, initial encounter for fracture; M81.0 Age-related osteoporosis without current pathological fracture; I08.1 Rheumatic disorders of both mitral and tricuspid valves; K72.90 Hepatic failure, unspecified without coma; K59.00 Constipation, unspecified; K74.60 Unspecified cirrhosis of liver; R01.1 Cardiac murmur, unspecified; Z90.49 Acquired absence of other specified parts of digestive tract; Z88.8 Allergy status to other drugs, medicaments and biological substances; Z88.2 Allergy status to sulfonamides
CPT/HCPCS: 00750; 36415; 85025; J0690; J1100; J1885; J2001; J2370; J2405; J2704; J3010; J7121

== ENCOUNTER 2020-10-18 14:08 | Emergency (ER) | payer MEDICARE, OTHER ==
[~2020-10-18] VITALS: Ht 147.3 cm; Wt 56.7 kg
--- OUTSIDE RECORDS SUMMARY | 2020-10-18 14:10 | XMS ---
PreManage Notification: MCKENZIE FRANK Security Doors Prefitter Events No recent Security Events currently on file CRITERIA MET - [facility] - Has Care Guidelines CARE PROVIDERS Fredi White [facility] 11/25/2018-Current PHONE: [phone] SIERRA BORGES Internal Medicine 02/10/2019-Current PHONE: Unknown Mandy has no Care Guidelines for this patient. Care History Medical/Surgical 02/05/2020 [facility] Spoke to patient.\T\nbsp; APD (Aging and People with Disabilities) has pt on DMAP for Medicare premium benefits.\T\nbsp; Company who she pays for [employer] got her down to $2.00 per gallon.\T\nbsp; James hernandez has house keeper who assisted patient with what she needed and advised patient to let her know if there is anything else that she can do.\T\nbsp; I advised patient to reach out to me if she feels she needs any other resources.\T\nbsp; I told her if she cannot get to grocery store to let me know. Patient agreed. 05/16/2019 [facility] Met with patient in CCU.\T\nbsp; Patient said she was advised to come in for any anemia related issues.\T\nbsp;\T\nbsp;Has a follow up appointment on [address] Borges 11/25/2018 [facility] - PATIENT HAS AN APT WITH DR WARREN ON 11/28/18 - UROLOGIST. [place]re[facility] VISIT COUNT (12 MO.) [facility] TOTAL 2 NOTE: Visits indicate total known visits. ED/UCC VISIT TRACKING (12 MO.) 10/18/2020 14:08 [facility] TYPE: Emergency COMPLAINT: - WEAKNESS/SWELLING IN LIMBS 02/01/2020 09:47 [facility] GarciaAmanda Carpenter OR TYPE: Emergency COMPLAINT: - BLOODY STOOL INPATIENT VISIT TRACKING (12 MO.) 02/01/2020 16:13 [facility]at[facility] GarciaAmanda Carpenter OR TYPE: Medical Surgical COMPLAINT: - CHOLITIS/ COVID RULE OUT DIAGNOSES: - Other pancytopenia - Contact with and (suspected) exposure to other viral communicable diseases - Essential (primary) hypertension - Enterocolitis due to Clostridium difficile, not specified as recurrent - Thrombocytopenia, unspecified - Other cirrhosis of liver - Acute respiratory failure with hypoxia - Do not resuscitate - Other chronic pain - Other chcf (current) drug therapy - Allergy status to sulfonamides - Campylobacter enteritis - Noninfective gastroenteritis and colitis, unspecified - Rectal prolapse - Allergy status to other drugs, medicaments and biological substances [email or web address]
--- NOTE | 2020-10-19 08:20 | EKG ---
[facility] [address] [facility] [place] [address] Signed Sinus rhythm with premature atrial complexes Right bundle branch block Abnormal ECG When compared with ECG of 13-SEP-2020 13:53, fusion complexes are no longer present Right bundle branch block is now present Confirmed by ALEX GREENE DO ([id number]) on 10/19/2020 8:19:57 AM Electronically Signed By: ALEX GREENE DO 10/19/20 0820 PATIENT NAME: MCKENZIE FRANK Electrocardiogram DATE OF : 42 PHYSICIAN: ALEX GREENE DO REPORT #: [id number] REPORT IS CONFIDENTIAL AND NOT TO BE RELEASED WITHOUT AUTHORIZATION
--- NOTE | 2020-10-19 13:34 | NUR ---
ED follow up call completed. Patient states she is feeling better but still tired. She figured her weight has increased 10 lb in the past month. Instructed on daily weights and when to contact Dr Borges. She states she has been on low salt diet for a while. Patient did not want any further tools for managing diet at this time. She has an appointment with PCP in a month. I have called Dr Borges's team Kika and recommended patient be seen within week.
== END 2020-10-18 18:05 | disposition home or self-care (01) ==
LOC: ED 14:08
DX: I50.9 Heart failure, unspecified (principal); Z88.2 Allergy status to sulfonamides; Z88.8 Allergy status to other drugs, medicaments and biological substances; Z79.899 Other long term (current) drug therapy
CPT/HCPCS: 71045; 80053; 83735; 83880; 84484; 85025; 93005; 93010; 96374; 99285-25; J1940

== ENCOUNTER 2021-06-29 09:04 | Inpatient (IN) | payer MEDICARE, OTHER, MEDICAID ==
[~2021-06-29] VITALS: Ht 147.3 cm; Wt 74.0 kg
--- OUTSIDE RECORDS SUMMARY | 2021-06-29 09:06 | XMS ---
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 Patient agreed. 05/16/2019 [facility] Met with patient in CCU.\T\nbsp; Patient said she was advised to come in for any anemia related issues.\T\nbsp;\T\nbsp;Has a follow up appointment on [address] Borges 11/25/2018 [facility] - PATIENT HAS AN APT WITH DR WARREN ON 11/28/18 - UROLOGIST. Contreras VISIT COUNT (12 MO.) 2 [facility] TOTAL 2 NOTE: Visits indicate total known visits. 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
--- NOTE | 2021-06-29 16:40 | NUR ---
report recieved from LOGISTICS COORDINATOR. PT transported to CCU via stretcher on cardiac exercise specialist with LOGISTICS COORDINATOR. pt unable to transfer from stretcher to bed. This RN at bedside to complete intake assessment.
--- NOTE | 2021-06-29 17:15 | NUR ---
INITIAL ASSESSMENT COMPLETED. PT ALERT BUT DISORIENTED TO DATE, TIME, EVENT AND LOCATION. UNABLE TO ANSWER QUESTIONS ABOUT MEDICAL HISTORY. PT GRIMACING, REPORTS PAIN IN MULTIPLE LOCATIONS INCLUDING ABDOMEN. PT PAINFUL UPON PALPATION OF ABDOMEN. LUNGS SOUND CLEAR. PT SPO2 = 100% ON ROOM AIR. FINGER TIPS AND TOES ARE DUSKY WITH CAPILLARY REFILL GREATER THAN 3 SECONDS. PT HAS 1 PLUS BILATERAL PITTING EDEMA. URINE IN CARRASCO BAG IS ORANGE IN COLOR. BLOOD SUGAR OF 83 UPON ARRIVAL. IV FLUIDS AND ABX NOW INFUSING. BED ALARM IN PLACE, WILL CONTINUE TO MONITOR.
--- NOTE | 2021-06-29 17:22 | NUR ---
US agricultural engineering technician in room with pt at this time.
--- NOTE | 2021-06-29 19:37 | EKG ---
[facility] [address] [facility] [place] [address] Signed Sinus rhythm with premature supraventricular complexes and premature ventricular complexes or fusion complexes Low voltage QRS Right bundle branch block Abnormal ECG When compared with ECG of 18-OCT-2020 14:22, fusion complexes are now present premature ventricular complexes are now present Confirmed by ALEX GREENE DO ([id number]) on 06/29/2021 7:37:20 PM Electronically Signed By: ALEX GREENE DO 06/29/21 1937 PATIENT NAME: MCKENZIE FRANK Electrocardiogram DATE OF : 42 PHYSICIAN: ALEX GREENE DO REPORT #: [id number] REPORT IS CONFIDENTIAL AND NOT TO BE RELEASED WITHOUT AUTHORIZATION
--- NOTE | 2021-06-29 19:47 | NUR ---
REPORT RECEIVED FROM BRENNAN RN, WILL CONTINUE PLAN OF CARE.
--- NOTE | 2021-06-29 20:41 | NUR ---
PT LAYING IN BED MOANING AT THIS TIME. PT AWOKE EASILY AND WAS SLOW TO RESPOND. PT HAD DIFFICULTY RECALLING HER LAST NAME, , AND DATE. PT KNEW HER FIRST NAME AND SETTING OF BEING IN THE HOSPITAL. VITALS ASSESSED AND PT ASSESSED (SEE CHART). DR. GREENE THEN CALLED AND NOTIFIED OF PT'S LOW URINE OUTPUT OF 30ML SINCE 1729 TO 1999. NEW ORDERS TO BE PLACED. DR. GREENE IN SHORTLY AFTER TO ASSESS PT. SCHEDULED MEDICATIONS ADMINISTERED ALONG WITH PRN TYLENOL FOR PAIN, IVF STARTED ORDERED (SEE MAR). FURTHER ORDERS TO BE PLACED BY DR. GREENE. PT CBG ASSESSED AFTERWARDS AND WAS 120, IVFS INFUSING AT ORDERED RATE (SEE MAR). CARRASCO DRAINING KERWIN URINE. PT NOW RESTING IN BED ON HER RIGHT SIDE AND STATES SHE GO TO SLEEP. CALL LIGHT IN REACH, BED IN LOWEST POSITION, WILL CONTINUE PLAN OF CARE.
--- NOTE | 2021-06-29 21:43 | NUR ---
PT LAYING IN BED SLEEPING AT THIS TIME, IVFS INFUSING ORDERED (SEE MAR). PT AWOKE EASILY BUT IS STILL ORIENTED TO SELF, SETTING, YEAR BUT NOT EVENT, MONTH, OR TOWN. PT STILL SLOW TO RESPOND AT TIMES. PT REPOSITIONED UP IN THE BED. PT THEN ASSISTED IN SITTING UP AND SCHEDULED MEDICATIONS ADMINISTERED (SEE MAR). PT CARRASCO EMPTIED OF 11ML OF KERWIN URINE AT THIS TIME. PT NOW SLEEPING IN BED AT THIS TIME AND REPORTS NO FURTHER NEEDS WHEN ASKED, CALL LIGHT IN REACH, BED IN LOWEST POSITION, WILL CONTINUE PLAN OF CARE.
--- NOTE | 2021-06-29 23:00 | NUR ---
PT LAYING IN BED RESTING AT THIS TIME. PT AWAKES EASILY BUT IS STILL SLOW TO RESPOND AND ORIENTED TO SELF AND SETTING AT THIS TIME BUT NOT YEAR, DATE, EVENT. VS TAKEN, PT ASSESSED (SEE CHART). PT PLACED ON 2L DUE TO TOE SPO2 MONITOR READING 88-90 ON ROOM AIR THOUGH SIGNAL IS POOR DUE TO PERFUSION. FINE PT BREATHING NOTED TO BE LABORED, PT REPORTS SOB, FINE CRACKLES HEARD THROUGHOUT LUNGS. PT MOANING AT THIS TIME BUT STATES "I DONT KNOW" WHEN ASKED IF SHE HAS PAIN. CARRASCO EMPTIED OF 7ML KERWIN URINE AT THIS TIME. PT REPORTS NO FURTHER NEEDS WHEN ASKED AND RETURNED TO SLEEP. IVFS INFUSING ORDERED, WILL CONTINUE PLAN OF CARE AND NOTIFY DR. GREENE OF ASSESSMENT, VS, AND LOW URINE OUTPUT.
--- NOTE | 2021-06-29 23:08 | NUR ---
DR. GREENE CALLED AT THIS TIME AND NOTIFIED OF PT'S VITALS, ASSESSMENT, AND INTAKE AND OUTPUT SPECIFICALLY A LOW URINE OUTPUT OF 18ML OVER THE LAST 3 HOURS. NEW ORDERS GIVEN TO STOP LR, DECREASE THE D5LR TO 50MLS/HR, ADMINISTER 20MG LASIX IV, AND START THE PT ON 100ML ALBUMIN TID WITH THE FIRST DOSE SCHEDULED FOR NOW. PT RESTING IN BED AT THIS TIME, LR STOPPED AND D5LR DECREASED TO 50ML/HR PER ORDERS, LASIX AND ALBUMIN TO BE ADMINISTERED ONCE THEY ARE AVAILABLE IN THE [facility], WILL CONTINUE PLAN OF CARE. PT RESTING IN BED AND REPORTS NO FURTHER NEEDS AT THIS TIME. CALL LIGHT IN REACH, BED IN LOWEST POSITION.
--- NOTE | 2021-06-29 23:45 | NUR ---
PT LAYING IN BED SLEEPING AT THIS TIME, IV ALBUMIN STARTED AND NOW INFUSING AT ORDERED RATE (SEE MAR). PT REPORTS NO NEEDS AND REPOSITIONED HERSELF TO HER RIGHT SIDE AT THIS TIME. PT NOW RESTING IN BED, WILL CONTINUE PLAN OF CARE. CALL LIGHT IN REACH, BED IN LOWEST POSITION, WILL CONTINUE PLAN OF CARE.
--- NOTE | 2021-06-30 00:22 | NUR ---
IV ALBUMIN COMPLETED AT THIS TIME. PT IV SALINE LOCKED. PT RESTING IN BED ON 2L O2 NC, SPO2 96%, NO FURTHER NEEDS ASSESSED AT THIS TIME, WILL CONTINUE PLAN OF CARE. CALL LIGHT IN REACH, BED IN LOWEST POSITION, IVF INFUSING ORDERED.
--- NOTE | 2021-06-30 01:24 | NUR ---
PT LAYING IN BED SLEEPING AT THIS TIME SLEEPING ON 2L O2 NC, SPO2 92-96%. VITALS TAKEN (SEE CHART). AT 0100 URINE OUTPUT WAS RECORDED 13ML SINCE 2300. DR. GREENE CALLED AND NOTIFIED OF PT'S VITALS AND OUTPUT, NO NEW ORDERS AT THIS TIME, WILL CONTINUE PLAN OF CARE. CALL LIGHT IN REACH, BED IN LOWEST POSITION, IVF INFUSING ORDERED.
--- NOTE | 2021-06-30 02:39 | NUR ---
PT LAYING IN BED MOANING, THIS RN WALKED IN TO ROOM, PT LAYING IN BED AWAKE AND DROWSY AND STATED SHE WAS "WET". CARRASCO ASSESSED AND IS INTACT AND DRAINING, PT NOTED TO BE INCONTINENT OF STOOL. PERICARE DONE AND NEW ATTENDS, DRAWSHEET, AND PAD IN PLACE. PT ABLE TO FOLLOW COMMANDS AND ASSIST WITH ROLLING WHILE DOING CARES. PT NOW RESTING IN BED AND REPORTS NO FURTHER NEEDS, IVF INFUSING ORDERED, 8ML OF URINE MEASURED AT 0230 AND EMPTIED. WILL CONTINUE PLAN OF CARE. CALL LIGHT IN REACH, BED IN LOWEST POSITION, WARM BLANKETS PROVIDED TO PT.
--- NOTE | 2021-06-30 03:55 | NUR ---
PT LAYING IN BED ON HER RIGHT SIDE AT THIS TIME, IVF ALARMING, NEW BAG OF D5LR STARTED AT 50ML/HR PER ORDERS. RIGHT EJ IV FLUSHING WELL AND NOW HAS THE D5LR INFUSING. PT VITALS TAKEN AT THIS TIME AND ASSESSMENT COMPLETED. LUNGS DIMINISHED WITH CRACKLES IN THE BASES, FINE CRACKLES PRESENT ON THE UPPER RIGHT LOBE AND CLEAR IN THE UPPER LEFT. PT ON 2L O2 NC, SPO2 95-96%. BOWEL TONES HYPOACTIVE, RADIAL PULSES +2, PEDAL +1, CAPILLARY REFILL IS SLUGGISH. PT AWAKE EASILY BUT IS STILL DROWSY. CARRASCO EMPTIED AT 0340 OF 8ML OF KERWIN URINE. PT RESTING IN BED ASLEEP AND IN NO APPARENT DISTRESS AT THIS TIME. CALL LIGHT IN REACH, BED IN LOWEST POSITION, IVF INFUSING ORDERED, WILL CONTINUE PLAN OF CARE.
--- NOTE | 2021-06-30 05:10 | NUR ---
PT LAYING ON HER RIGHT SIDE AT THIS TIME SLEEPING. PT AWOKE BUT IS DROWSY AND RETURNED BACK TO SLEEP SHORTLY. PT CARRASCO CHECKED AND HAD 8ML OF URINE. PT STILL ON 2L O2 NC, SPO2 93-96%, PT RR 18, BREATHING STILL LABORED. NO FURTHER NEEDS ASSESSED AT THIS TIME, IVF INFUSING ORDERED, CALL LIGHT IN REACH, BED IN LOWEST POSITION, WILL CONTINUE PLAN OF CARE.
--- NOTE | 2021-06-30 06:26 | NUR ---
PT LAYING IN BED ON HER RIGHT SIDE SLEEPING. PT DROWSY AT THIS TIME AND AWAKES TO VERBAL/PHYSICAL STIMULI, OPENS EYES, BUT RETURNS BACK TO SLEEP. PT ON 2L OC NC, SPO2 92%. PERIORBITAL SWELLING NOTED ON R EYE, BOTH EYES OPEN AND ARE PERRLA. LABS DRAWN FROM RIGHT SIDE EJ AND SENT TO LAB. CBG ASSESSED AND WAS 149. IVF INFUSING ORDERED. CARRASCO UROMETER CHECKED AND HAD 5ML OF URINE FOR THE HOUR. STILL KERWIN IN COLOR. PT IN NO APPARENT DISTRESS AT THIS TIME AND IS SLEEPING IN BED ON HER RIGHT SIDE, BED IN LOWEST POSITION, WILL CONTINUE PLAN OF CARE.
--- NOTE | 2021-06-30 06:52 | NUR ---
DR. GREENE NOTIFED OF PT LABS, UPDATED ON PTS INCREASED DROWSINESS, AND VITALS. NEW ORDERS GIVENT TO DRAW A VBG, WILL CONTINUE PLAN OF CARE.
--- NOTE | 2021-06-30 07:30 | NUR ---
REPORT RECIEVED, CARE OF PT ASSUMED AT THIS TIME.
--- NOTE | 2021-06-30 08:00 | NUR ---
ASSESSMENT COMPLETED. BLADDER SCAN SHOWED 650 MLS IN PT BLADDER. NEW CARRASCO CATHETER INSERTED AT THIS TIME 5 MLS OF RETURN AFTER INSERTION. PT'S VAGINA IS SLIGHTLY PROLAPSED. PT'S RECTUM IS RED AND EXCORITATED. PT HAS GENERALIZED EDEMA AND PERIORIBITAL EDEMA NOTED WELL. LUNGS SOUND CLEAR WITH OCCASSIONAL SCATTERED FINE CRACKLES IN BILATERAL LUNG BASES. HEART RATE IN THE 70S, SPO2 = 98% ON 2 L NC. RESPIRATIONS EVEN AND UNLABORED. PT ANSWERING ALL QUESTIONS APPROPRIATELY. ABLE TO STATE SHE IS IN [place], KNOWS THE YEAR, AND HER LOCATION. PLAN OF CARE FOR DAY ESTABLISHED. PT FLOATED ON PILLOWS AND HEEL PROTECTORS IN PLACE. PT REPORTS GENERALIZED ABDOMINAL PAIN. TENDER ON PALPATION BUT NO FIRMNESS OR DISTENTION NOTED. IV FLUIDS INFUSING, CALL LIGHT WITHIN REACH. WILL CONTINUE TO MONITOR.
--- NOTE | 2021-06-30 08:47 | NUR ---
DR GREENE IN ROOM FOR ASSESSMENT. PT STATES AT THIS TIME SHE DOES NOT WISH TO BE A FULL CODE AND DOES NOT WANT TO BE TRANSFERED TO A HIGHER LEVEL OF CARE. PLAN FOR DAY ESTABLISHED. CALL LIGHT WITHIN REACH. IV ABX INFUSING. WILL CONTINUE TO MONITOR.
[2021-06-30] MEDS ORDERED: FLUOXETINE HCL20 MG PO (08:59)
--- NOTE | 2021-06-30 09:05 | NUR ---
Spoke with pt briefly as she is very sob and has a NRB in place. Pt is able to state Effie Cifuentes is her daughter, but they are not on speaking terms. She ask I call her SO, Sarai. Number on the white board and in the chart are not correct. Pt states Sarai may speak for her Medically.
--- NOTE | 2021-06-30 09:30 | NUR ---
PT WORK OF BREATHING WORSENING. PLACED ON 6 L OM AND GIVEN A BREATHING TX. EXPIRATORY WHEEZE AND STERNAL RETRACTIONS NOTED. RT IN TO PLACE PT ON CPAP AT THIS TIME.
--- NOTE | 2021-06-30 10:02 | NUR ---
PT PLACED ON CPAP AT THIS TIME BY RT. HEART RATE IN THE 80S. BLOOD PRESSURE 111/59 (74). IV ROCEPHIN NOW INFUSING. 60 MG IV LASIX ADMINISTERED. PACU NURSE CONSULTED ABOUT STARTING A LARGE BORE IV ON PT. PT'S ALEISHA MILIAN, UPDATED VIA TELEPHONE ON PTS CURRENT CONDITION. THIS RN REMAINS AT BEDSIDE.
--- NOTE | 2021-06-30 10:40 | NUR ---
PT'S SIGNIFICANT OTHER IS NOW AT THE BEDSIDE. PROVIDED AN UPDATE AT THIS TIME.
--- NOTE | 2021-06-30 12:20 | NUR ---
ASSESSMENT COMPLETED. PT ASLEEP ON CPAP. BREEDER SERVICE TECHNICIAN AT BEDSIDE. DR GREENE IN ROOM TO PROVIDE AN UPDATE ON PT CONDITION AND PLAN OF CARE. PT REPOSTIONED ONTO LEFT SIDE. CPAP REMAINS IN PLACE. NOREPINEPHRINE DRIP CONTINUE TO INFUSE (SEE EMAR). SIGNIFICANT OTHER REMAINS AT BEDSIDE.
--- NOTE | 2021-06-30 13:45 | NUR ---
PT TAKEN OFF CPAP AND PLACED ON 6 L OM. PT EXTREMELY DROWSY, BUT ROUSABLE TO VOICE AND TOUCH. NOREPINEPHRINE DRIP CONTINUES TO INFUSE. PLAN ESTABLISHED TO HAVE DR MAI COME IN AND INSERT A CENTRAL LINE. THIS RN WILL CONTINUE TO MONITOR.
--- NOTE | 2021-06-30 14:41 | NUR ---
PICC NURSE LAKESHA IN ROOM WITH PT AT THIS TIME. NOREPINEPHRINE DRIP TITRATED DOWN TO MAINTAIN GOAL BLOOD PRESSURE. WILL CONTINUE TO MONITOR.
--- NOTE | 2021-06-30 15:40 | NUR ---
ATTEMPT WAS MADE TO PT'S LEFT BASILIC VEIN FOR PICC LINE ACCESS. 3 ATTEMPTS WERE MADE WITH NO SUCCESS. PT'S RN NOTIFIED. VERBAL CONSENT FOR PICC LINE WAS OBTAINED PRIOR TO THIS FROM PT'S SIGNIFICANT OTHER.
--- NOTE | 2021-06-30 17:15 | NUR ---
IN ROOM WITH DR MAI FOR FEMORAL LINE INSERTION. THIS RN IS AT BEDSIDE TO ASSIST. PT LETHARGIC DURING INSERTION. BLOOD DRAWN AND SENT TO LAB. PT HAD THREE SHORT BEATS OF VTACH (SEE PAPER CHART). AWARE. PT NOW LAYING ON LEFT SIDE. NOREPINEPHRINE AND ABX INFUSING (SEE EMAR). HEAR RATE IN THE 60S. SPO2 = 96% ON 3 L OM.
--- NOTE | 2021-06-30 17:56 | NUR ---
PT TRANSPORTED ON FARM DEMONSTRATOR TO CT WITH FLOAT SINTIA SANCHEZ. NOREPINEPHRINE AND ABX CONTINUE TO INFUSE.
--- NOTE | 2021-06-30 18:56 | NUR ---
PT HAS BECOME MORE RESPONSIVE, ORIENTED TO TIME, DATE, LOCATION, AND SITUATION. NOREPINEPHRINE CONTINUES TO INFUSE TO MAINTAIN MAPS GREATER THAN 85. DR GREENE UPDATED ON PT CONDITION. CALL LIGHT WITHIN REACH. SIGNIFICANT OTHER AT BEDSIDE. WILL CONTINUE TO MONITOR.
--- NOTE | 2021-06-30 19:45 | NUR ---
REPORT RECEIVED FROM BRENNAN RN, PT LAYING IN BED ALERT AND ORIENTED X4 AT THIS TIME. LEVOPHED INFUSING AT 7 MCG/MIN, IV ABX INFUSING ORDERED. PT REPORTS NO FURTHER NEEDS AND STATES SHE IS "TIRED" AT THIS TIME, PT ON 3L O2 OXYMASK, PT'S PARTNER IN THE ROOM AT THIS TIME AT THE BEDSIDE. PT REPORTS NO FURTHER NEEDS WHEN ASKED, WILL CONTINUE PLAN OF CARE. CALL LIGHT IN REACH, BED IN LOWEST POSITION.
--- NOTE | 2021-06-30 20:36 | NUR ---
PT LAYING IN BED AWAKE AND IS ORIENTED X4. IV LEVOPHED INFUSING AT 7MCG/MIN, IV ABX INFUSING. PT VITALS TAKEN AND PT ASSESSEMENT COMPLETED (SEE CHART). PT CBG ASSESSED AND SCHEDULED MEDICATIONS ADMINISTERED (SEE MAR). IV ALBUMIN NOW INFUSING INTO PT'S CENTRAL LINE IN THE RIGHT FEMORAL VEIN. CENTRAL LINE INTACT AND SITE WNL, LINES FLUSHING WELL. WARM BLANKETS PROVIDED TO PT AND LIMBS ELEVATED WITH PILLOWS. PT NOW RESTING IN BED AND REPORTS NO FURTHER NEEDS AT THIS TIME. PT ON 3L O2 OXYMASK, SPO2 91-93%. WILL CONTINUE PLAN OF CARE.
--- NOTE | 2021-06-30 22:03 | NUR ---
PT LAYING IN BED ON HER RIGHT SIDE AT THIS TIME SLEEPING. LEVOPHED, IV ABX AND ALBUMIN INFUSING AT PREVIOUS RATES. PT LINENS MOIST FROM WEEPING EDEMA, LINENS CHANGED AT THIS TIME. PT ABLE TO FOLLOW DIRECTIONS AND ROLL TO ASSIST WITH CHANGING LINENS. NEW GOWN NOW ON PT. PT ASSISTED IN REPOSITIONING, LIMBS ELEVATED WITH PILLOWS. IV ALBUMIN AND IV ABX COMPLETED AFTERWARDS, 2 LUMENS ON PT'S CENTRAL LINE SALINE LOCKED. LEVOPHED STILL INFUSING AT 7MCG/MIN INTO ONE. PT NOW RESTING IN BED, PT TOOK A FEW SIPS OF WATER AND RETURNED BACK TO SLEEP. PT REPORTS NO FURTHER NEEDS AT THIS TIME WHEN ASKED, WILL CONTINUE PLAN OF CARE. CALL LIGHT IN REACH, BED IN LOWEST POSITION, PT ON 3L O2 OXYMASK, SPO2 92%.
--- NOTE | 2021-06-30 23:08 | NUR ---
PT SLEEPING ON HER RIGHT SIDE AT THIS TIME ON 3L O2 OXYMASK. LEVOPHED INFUSING AT 7MCG/MIN. PT IN NO APPARENT DISTRESS, SPO2 97%, CARRASCO EMTPIED OF 35ML URINE FOR THE HOUR. PT LEFT UNDISTURBED, WILL CONTINUE PLAN OF CARE. CALL LIGHT IN REACH, BED IN LOWEST POSITION.
--- NOTE | 2021-07-01 00:18 | NUR ---
PT RESTING IN BED ON HER RIGHT SIDE. PT CENTRAL LINE NOTED TO BE SOILED WITH BLOOD. STERILE PROCEDURE FOLLOWED, SITE CLEANED AND NEW DRESSING WITH BIOPATCH PLACED OVER SITE. PT LINENS THEN CHANGED DUE TO PT'S WEEPING EDEMA FROM HER ARMS MAKING THE SHEETS MOIST. PT INCONTINENT OF A SMALL BM AND WAS CLEANED. NEW LINENS AND PAD IN PLACED, PT REPOSITIONED UP IN BED WITH ASSISTANCE AND UPPER EXTREMITIES ELEVATED WITH PILLOWS. PT DROWSY BUT ABLE TO FOLLOW COMMANDS. LEVOPHED TITRATED UP FROM 7 TO 9MCG/MIN MAPS WERE BELOW 85MMHG (74-75MMHG). PT NOW RESTING ON HER LEFT SIDE. PT ASSESSMENT COMPLETED (SEE CHART). PT HAS LABORED BREATHING, LUNGS DIMINISHED/CRACKLES IN THE BASES BILATERALLY WITH EXP WHEEZES IN UPPPER LOBES. RT NOTIFIED. PT TITRATED UP TO 10L OXYMASK AT THIS TIME SPO2 WAS NOW MAINTAINING AT 87-88% ON 3L OXYMASK. RT IN TO DO NEB TREATMENT AND PLACED PT ON THE BIPAP AT 40% FIO2, SPO2 NOW 96%. PT IN NO APPARENT DISTRESS AND IS NOW RESTING ON HER LEFT SIDE, BIPAP ON, LEVOPHED INFUSING, BED IN LOWEST POSITION, WILL CONTINUE PLAN OF CARE.
--- NOTE | 2021-07-01 00:58 | NUR ---
LEVOPHED TITRATED UP FROM 9MCG/MIN TO 11 MCG/MIN MAP WAS BELOW 85MMHG. PT SLEEPING AT THIS TIME ON THE BIPAP. PT IN NO APPARENT DISTRESS AND WAS LEFT UNDISTURBED, BIPAP AT 30% FIO2 NOW, SPO2 92%, WILL CONTINUE PLAN OF CARE.
--- NOTE | 2021-07-01 01:07 | NUR ---
LEVOPHED INCREASED TO 13 MCG/MIN MAPS REMAIN BELOW 85MMHG (78MMHG). PT REMAINS RESTING IN BED ON THE BIPAP AT 30% FIO2, SPO2 91-92%. PT IN NO APPARENT DISTRESS AND WAS LEFT UNDISTURBED, WILL CONTINUE PLAN OF CARE.
--- NOTE | 2021-07-01 03:10 | NUR ---
PT LAYING IN BED SLEEPING ON HER RIGHT SIDE. BIPAP ON AT PREVIOUS SETTINGS, SPO2 90-92%. LEVOPHED ON AT 13MCG/MIN, MAPS MAINTAINING AROUND 85MMHG. 29MLS OF CONCENTRATED URINE EMPTIED FROM CARRASCO FOR THE HOUR. PT THEN REPOSITIONED UP IN BED AND PILLOWS PLACED UNDER HER LEFT HIPS. PT REMAINS ASLEEP, NO FURTHER NEEDS ASSESSED AT THIS TIME. CALL LIGHT IN REACH, BED IN LOWEST POSITION, WILL CONTINUE PLAN OF CARE.
--- NOTE | 2021-07-01 03:35 | NUR ---
PT SLEEPING IN BED ON THE BIPAP AT PREVIOUS SETTINGS. LEVOPHED INCREASED FROM 13 TO 15MCG/MIN TO MAINTAIN MAPS ABOVE 85 MMHG. WILL CONTINUE PLAN OF CARE.
--- NOTE | 2021-07-01 05:14 | NUR ---
LABS DRAWN FROM PT'S CENTRAL LINE AT THIS TIME. CENTRAL LINE LUMEN DRAWS BLOOD AND FLUSHES EASILY. SAMPLES GIVEN TO GUEST REQUEST RUNNER. PT LAYING IN BED RESTING ON THE BIPAP, SPO2 90-92%, LEVOPHED ON AT PREVIOUS RATE, WILL CONTINUE PLAN OF CARE.
--- NOTE | 2021-07-01 05:45 | NUR ---
PT LAYING IN BED ON THE BIPAP, SPO2 90-91%. LEVOPHED INFUSING AT 15 MCG/MIN. PT GOWN NOTED TO BE SOILED FROM PT'S WEEPING EDEMA IN ARMS/HANDS BILATERALLY. NEW GOWN AND PADS PLACED. PT AWAKES BRIEFLY TO NAME AND PHYSICAL STIMULI AND FOLLOWS COMMANDS. PT ABLE TO ASSIST IN ROLLING TO THER SIDE TO CHANGE GOWN AND PADS. PT REPOSITIONED UP IN THE BED AND PILLOWS PLACED TO ELEVATE EXTREMITIES. PT NOW BACK TO SLEEP LAYING ON HER RIGHT SIDE. PT REPORTS NO FURTHER NEEDS, WILL CONTINUE PLAN OF CARE.
--- NOTE | 2021-07-01 06:19 | NUR ---
PT LAYING IN BED SLEEPING ON THE BIPAP. SETTINGS UNCHANGED, SPO2 90-91%. LEVOPHED TITRATED UP AT 0600 FROM 15 TO 17MCG/MIN TO MAINTAIN MAP ABOVE 85MMHG. LEVOPHED TITRATED A SECOND TIME AT 0615 FROM 17 TO 19 MCG/MIN TO MAINTAIN MAP ABOVE 85 MMHG. PT IN NO APPARENT DISTRESS AND IS RESTING IN BED, WILL CONTINUE PLAN OF CARE.
--- NOTE | 2021-07-01 08:02 | NUR ---
ASSESSMENT COMPLETED. PT ALERT AND ORIENTED BUT DROWSY. PT HAS GENERALIZED PITTING EDEMA IN BACK, ARMS, LEGS, AND THIGHS. LUNGS SOUNDS ARE DIMINISHED. PT DESATURATED DOWN ITNO THE 70S ON ROOM AIR TRIAL. ARMS ARE WEEPING. BED BATH AND LINEN CHANGE COMPLETED. CARRASCO AND ORAL CARE COMPLETED. NOREPINEPHRINE DRIP CONTINUES TO INFUSER AT 17 MCG/MIN. PLAN OF CARE FOR DAY ESTABLISHED. CALL LIGHT WITHIN REACH. WILL CONTINUE TO MONITOR.
--- NOTE | 2021-07-01 09:28 | OR ---
[facility] [address], [place] [address] Signed DATE OF OPERATION: 06/30/2021 SURGEON: Sameer Mai MD PREOPERATIVE DIAGNOSIS: Hepatorenal syndrome. POSTOPERATIVE DIAGNOSIS: Hepatorenal syndrome. PROCEDURE: Placement of right femoral triple-lumen catheter. ESTIMATED BLOOD LOSS: Minimal. INDICATIONS: Gracia is a 80-year-old female, who has been admitted to our internal medicine service for hepatorenal syndrome. She is now in the ICU. She is requiring pressor support and albumin and so forth. She has been made a DNR earlier today. However, the treatment has been ongoing. Therefore, they were unsuccessful in placing a PICC line earlier today. I was asked by the internal medicine service to place a triple-lumen catheter. In reviewing Sydnee's chart, we can see that her platelet count is low at 46,000 with an INR elevated at 2.0 and an albumin at 2.5. Consent has already been obtained from her next of kin, Timothy Hernandez by her nurse. Sydnee of course is in no condition mentally or otherwise to give consent. Of course, there is risk to this procedure including, but not limited to bleeding, infection, scarring, change in contour of the skin as well as catheter embolization requiring retrieval. PROCEDURE IN DETAIL: Sydnee was kept supine in her ICU bed. The right groin was prepped and draped in the usual sterile fashion. Local anesthetic was injected in the right groin. We confirmed the position of the right femoral artery with the help of our ultrasound and by palpation. We were able to pass the needle into the right femoral vein after a couple of passes. There was good venous dark nonpulsatile blood. The wire was inserted without resistance whatsoever. The tract was dilated and the dilator curved in the appropriate position. The triple-lumen catheter was inserted up to the hub and each port was able to draw and flush quite readily with saline. The catheter was held in place with interrupted 3-0 silk sutures. Dry plastic occlusive dressing applied per nursing staff. Electronically Signed By: ASMEER MAI MD 07/01/21 0928 PATIENT NAME: SYDNEE FRANK OPERATIVE REPORT DATE OF : 42 REPORT #: [id number] PHYSICIAN: SAMEER MAI MD PCP: DEONDRE ARANDA MD REPORT IS CONFIDENTIAL AND NOT TO BE RELEASED WITHOUT AUTHORIZATION [address] [address] Signed Sydnee tolerated the procedure quite well. Sameer Mai MD ALB/MODL /[id number] cc: MD Deondre Moses MD Copies: SAMEER MAI MD, MALCOLM MD ~ Electronically Signed By: SAMEER MAI MD 07/01/21 0928 PATIENT NAME: SYDNEE FRANK OPERATIVE REPORT DATE OF : 42 REPORT #: [id number] PHYSICIAN: SAMEER MAI MD PCP: DEONDRE ARANDA MD REPORT IS CONFIDENTIAL AND NOT TO BE RELEASED WITHOUT AUTHORIZATION
--- NOTE | 2021-07-01 09:42 | NUR ---
AT 0926 PT HEART RATE UP INTO THE 130-140, RHYTHM IS AFIB. LEVOPHED PLACED ON STAND BY DR GREENE CALLED. PT INITIALLY DENIES CHEST PAIN. HEART RATE THEN INCREASED TO 150S, AND PT REPORTS CHEST AND ABDOMINAL DISCOMFORT. RT CALLED TO FOR EKG. DR GREENE CALLED AGAIN AND UPDATED. DR. GREENE IN PT ROOM AT 0932. VERBAL ORDER FOR 5 MG IV LOPRESSOR. LOPRESSOR ADMINISTERED. HEART RATE REMAINS IN THE 120S. VERBAL ORDER FOR 25 MG ORAL LOPRESSOR RECIEVED AND ADMINISTERED. PT REMAINS ALERT AND ORIENTED. ASSISTED WITH REPOSITIONING ON TO LEFT SIDE. THIS RN REMAINS AT PT BEDSIDE.
--- NOTE | 2021-07-01 09:53 | NUR ---
PT NOW HYPOTENSIVE WITH SYSTOLIC BLOOD PRESSURES IN THE 80S. VERBAL ORDER RECEIVED (SEE EMAR).
--- NOTE | 2021-07-01 10:08 | NUR ---
PT SIGNIFICANT OTHER CALLED. LEFT A VOICEMAIL AT THIS TIME. WILL CONTINUE TO ATTEMPT TO CALL. DISCUSSED PT CURRENT HEART RATE AND BLOOD PRESSURES WITH DR GREENE. NEOSYNEPHRINE DRIP ON HOLD AT THIS TIME.
--- NOTE | 2021-07-01 11:02 | NUR ---
PASTORAL CARE IN ROOM WITH PT. PERMISSION GIVEN TO CONTACT PT'S DAUGHTER AND PROVIDED STEP DAUGHTER AUGUST WITH UPDATE ON PT CONDITION. PT UNABLE TO SWALLOW POTASSIUM PILLS. ASSISTED WITH REPOSITIONINGIN IN BED. HEART RATE IN THE 110S BLOOD PRESSURES 115/85 (96). SPO2 = 98% ON 6 L OM. PT DENIES PAIN, BUT REPORTS GENERALIZED DISCOMFORT. CALL LIGHT WITHIN REACH. WILL CONTINUE TO CLOSELLY MONITOR.
--- NOTE | 2021-07-01 12:05 | NUR ---
SINTIA PRICE INFORMED ME THAT PT HAS VISITED WITH DR GREENE AND HAS DECIDED TO GO ON COMFORT MEASURES. PT AWOKE TO MY VOICE, WAS FAMILIAR WITH ME FROM PREVIOUS ADMISSIONS. PT VERY HONEST ABOUT NOT WANTING TO FIGHT ANY MORE. HAD PT REPEAT BACK TO ME SHE WAS READY TO STOP TREATMENT AND COMFORT MEASURES ONLY. SHE SAID YES, "I CAN'T DO THIS ANYMORE". GAVE COMFORT, PT REQUESTED PRAYER. GAVE PT A SMALL P.SHAWL SHE CLUTCHED NEXT TO HER CHEEK. REQUESTED I CONTACT HER DAUGHTER VICKIE WILSON. SHE WOULD LIKE TO SEE HER. WAS ABLE TO CONTACT HER AND INFORM HER OF HER MOTHER'S CONDITION. PT WAS ALSO ABLE TO TALK TO HER STEP- DAUGHTER AUGUST AND GAVE HER HER FINAL END OF LIFE WISHES. PT SAID SHE WAS UN- COMFORTABLE BUT NOT IN PAIN. PT WILL BE CREMATED AND HER SISTER KNOWS WHERE TO SPREAD HER ASHES. SINTIA PRICE IN CARING FOR PT. WILL FOLLOW NEEDED
--- NOTE | 2021-07-01 12:23 | NUR ---
DR GREENE IN ROOM WITH PT AND SIGNIFICANT OTHER TO DISCUSS AGAIN COMFORT MEASURES. PT STATES "I AM JUST TIRED" ALL QUESTIONS REGARDING COMFORT CARE ANSWERED. SIGNIFICANT OTHER AT BEDSIDE.
--- NOTE | 2021-07-01 12:35 | NUR ---
THIS RN IN WITH DEE RN TO REPOSITION PATIENT PER PATIENT REQUEST. PATIENT NOTED TO HAVE A BM AND WAS CHANGED. PATIENT WAS GIVEN MORPHINE PRIOR TO TURNING. WHEN PATIENT WAS CLEANED, PATIENT WAS REPOSITIONED FOR COMFORT. PATIENT REQUESTING TO HAVE SOMETHING MORE FOR PAIN. PATIENTS SIGNIFICANT OTHER AT THE BEDSIDE. DEE WILL GET PATIENT ADDITIONAL PAIN MEDICATION. PATIENT WAS ONLY GIVEN 5MG OF ORAL MORPHINE AND PATIENT CAN HAVE UP TO 20MG.
--- NOTE | 2021-07-01 12:45 | NUR ---
MED REC COMPLETE
--- NOTE | 2021-07-01 13:58 | NUR ---
HOSPICE CONSULT RECVD, PATIENT HAS BEEN MOVED TO COMFORT CARE AT THIS TIME. WILL AWAIT MD DECISION FOR DISCHARGE TO [facility].
--- NOTE | 2021-07-01 14:07 | NUR ---
LM FOR HOSPICE TO DISCUSS HOSPICE AVAILABILITY.
--- NOTE | 2021-07-01 14:25 | NUR ---
SPOKE WITH [facility], THEY ARE UNABLE TO GIVE AN ESTIMATE TO WHEN THE PATIENT COULD BE ADMITTED IF SENT HOME ON HOSPICE. AT THIS TIME RN COORDINATOR STATES THEY ARE AT FULL COMPACITY FOR PATIENT WITH AT LEAST 10 REFERRALS WAITING. THEY WILL TRIAGE PATIENT IF NEEDED. WILL DISCUSS WITH CCU STAFF.
--- NOTE | 2021-07-01 14:58 | NUR ---
RECVD CALL BACK FROM [facility], THEY CURRENTLY HAVE 9 PENDING REFERRALS AND DO NOT FEEL THEY WOULD BE ABLE TO ADMIT THE PATIENT UNTIL LATE NEXT WEEK. WILL UPDATE STAFF.
--- NOTE | 2021-07-01 15:27 | NUR ---
Patient to medical floor from CCU. Patient alert and oriented x3. Patient reports tolerable generalized pain. Patient is currently on 5L oxygem per oxymask, respirations non labored. Fresh water provided. Oriented patient to room and call light. Skip, pt's significant other at bedside. No current needs.
--- NOTE | 2021-07-01 15:30 | NUR ---
Patient to medical floor from CCU. Patient alert and oriented x3. Patient reports tolerable generalized pain. Patient is currently on 5L oxygem per oxymask, respirations labored. Fresh water provided. Oriented patient to room and call light. Skip, pt's significant other at bedside. No current needs.
--- NOTE | 2021-07-01 16:34 | NUR ---
Morphine 2mg ivp for comfort.
--- NOTE | 2021-07-01 18:09 | NUR ---
Patient visiting with friends at this time. Patient reports she is comfortable at this time. No current needs.
--- NOTE | 2021-07-01 20:14 | NUR ---
O2 5L OXymask, sats 95%. R9, opens eyes when turned, skin weepy ss drainage. R inguinal IV sites paten area bruised with old drainage. f/c patent. f/c done. attends in place. generalized edema 3+ arms and 4 deep pitting LE. elevated, heel protecotrs in place. Pt turned to L and turned self back to R side. Took meds with small amounts of puding and thickened liquids w/o problems. Medicated with 20mg SL Morphine per disocomofrt 08/14 as pr FLACC scale prior to repositioning. scant amount of yellow/cream colored eye drainage noted. cleansed. Turned and repositioned several times to familys desired. Family in room. Pt on comofrt care, BP not done. nursing judgement. Pt able to swallow po tabs/meds and SL med, well no coughing. Lungs dim at bases.
--- NOTE | 2021-07-01 22:15 | NUR ---
REPORITIONED TO l SIDE BUT PT TURNS SELF BACK TO r SIDE, ON 5l oXYMASK, CALM, QUIET, NO DISTRESS, LEGS ELEVATED, SKIN CONTINUES TO BE MOIST/WEEPY W SS DRAINAGE. ON COMFORT CARE
--- NOTE | 2021-07-02 01:13 | NUR ---
On 5L OXymask, no resp distress, opens eyes and nods when asked question. small amount of moist kerns/cream colored eye drainage noted, cleanse, red sclera nad conjuctiva noted. mouth care done. R External Jugular SL and R inguinal IV site patent. old drainage by Inguinal area. SS drainage noted from R breast. area orange peel, red, moist, heavy, area gently dried with towels and under both breast and pannus area. Was incontinent of smear of dark bm. skin cre barrier cream area reddened, barrier cream. clean attends, f/c patnt draining dark urine, small amount. 4+ pitting edema to LE, elevated, pt turns self to R side when turned to L side. legs elevated, heel protecotrs remoed at this time. call light at hands reach. Bed alrm on. Pt on comofrt care
--- NOTE | 2021-07-02 04:50 | NUR ---
IN TO ASSIST RN WITH PARTIAL VITALS, REPOSTITIONING PT, NO FURTHER NEEDS AT THIS TIME
--- NOTE | 2021-07-02 05:05 | NUR ---
pt medicated with morphine 20mg prior to turning and repositioning
--- NOTE | 2021-07-02 05:13 | NUR ---
Turned and repositioning, continues to have ss drainage seeping through skin hands, breast and low abd and back. skin dried. r ext Jug IV sl, patent and R inguinal SL IV site patent. fresh and old drainage from weeping skin present. hematoma no changes over are. 4+ pitting edema to LE present. opens eyes well, helps with turning. Medicated x2 with Morphine 20mg. prior to repositioning. comfortable. f/c patent drained only 55cc dark urine from midnight to now. MD aware of pts low UO. Pt on comofrt care
--- NOTE | 2021-07-02 05:17 | NUR ---
Turned and repositioning, continues to have ss drainage seeping through skin hands, breast and low abd and back. skin dried. R ext Jug IV sl, patent and R inguinal SL IV site patent. fresh and old drainage from weeping skin present. hematoma no changes over are. 4+ pitting edema to LE present. opens eyes well helps with turning. Medicated x2 with Morphine 20mg. prior to repositioning. comfortable. f/c patent drained only 55cc dark urine from midnight to now. MD aware of pts low UO. Pt on comfort care
--- NOTE | 2021-07-02 07:20 | NUR ---
THIS RN RECEIVED REPORT FROM CHRIS PATRICIO. PT APPEARS TO BE RESTING AT THIS TIME BUT DOES RESPOND TO VOICE. PT DOES NOT VERBALLY RESPOND BUT ABLE TO LOOK UP WITH EYES. PTS SKIN IS 4+ EDEMATOUS AND WEEPING AT THIS TIME. PT APPEARS COMFORTABLE ON HER RIGHT SIDE.
--- NOTE | 2021-07-02 08:50 | NUR ---
THIS RN IN PTS ROOM TO CHECK ON PT. PTS REPIRATIONS AT 4-6 PER MINUTE. ZACKARY RN NOTIFIED MD. PT APPEARS TO BE RESTING COMFORTABLY AT THIS TIME. THIS RN TO ALLOW PT TO STAY COMFORTABLE AND NOT TURN PT. THIS RN TO HOLD MORNING MEDS DUE TO PT NOT RESPONDING TO VOICE AT THIS TIME.
--- NOTE | 2021-07-02 09:15 | NUR ---
THIS RN IN PTS ROOM TO CEHCK ON PT. PTS LIFELONG PARTNER IN ROOM- ALEISHA OR "SKIP" PTS EYES OPEN WITH HIM IN ROOM. RESPIRATIONS UNCHANGED. "SKIP" ASKING FOR FRESH COFFEE- THIS PROVIDED. NO OTHER NEEDS AT THIS TIME
--- NOTE | 2021-07-02 11:58 | NUR ---
this rn in pts room to reposition pt and provide oral care. pts respiratory status unchanged. pt did open eyes when oral care done.
--- NOTE | 2021-07-02 12:54 | NUR ---
THIS RN IN PTS ROOM TO CHECK ON PT. PTS LIFE PARTNER SKIP IN ROOM AT THIS TIME, HE IS RESTING BUT AWAKENS WHEN THIS RN IN PTS ROOM. PTS RESPERATIONS THE SAME. BOTH COMFORTABLE. NO NEEDS AT THIS TIME.
--- NOTE | 2021-07-02 14:26 | NUR ---
THIS RN IN PTS ROOM. PTS LIFE PARTNER STEPPED OUT OF ROOM. PT APPEARS TO BE FIDGETING. RESPIRATIONS ARE 6 PER MINUTE- 3 RESPERS IN A ROW AND 30SEC APNEIC PERIODS.
--- NOTE | 2021-07-02 16:44 | NUR ---
THIS RN IN TO CHECK PT. PT HAVING PERIODS OF APNEA OF 20SECS. 4 RESPIRATIONS NOTED IN MINUTE.
--- NOTE | 2021-07-02 17:32 | EKG ---
[facility] [place] [facility] [address] [place], [place] [address] Signed Atrial fibrillation with rapid ventricular response Low voltage QRS Inferior-posterior infarct , possibly acute Abnormal ECG Confirmed by ALEX GREENE DO ([id number]) on 07/02/2021 5:32:48 PM Electronically Signed By: ALEX GREENE DO 07/02/211731 PATIENT NAME: MCKENZIE FRANK Electrocardiogram DATE OF : 42 PHYSICIAN: ALEX GREENE DO REPORT #: [id number] REPORT IS CONFIDENTIAL AND NOT TO BE RELEASED WITHOUT AUTHORIZATION
--- NOTE | 2021-07-02 18:08 | NUR ---
PTS LIFE PARTNER ALEISHA IN ROOM. RESPIRATIONS NOTED 4-6 PER MIN.
--- NOTE | 2021-07-02 19:28 | NUR ---
THIS RN IN PTS ROOM PER REQUEST OF PTS SIGNIFICANT OTHER. HE THINKS PT HAS PASSED. THIS RN LISTENED TO PTS HEART FOR 1 MIN- NO HEARTBEAT. NOT RESPIRATIONS FOR 2 MINS. STAFF TO CALL ISABELORAL MD ANDREEA, AND EUNICE PEREZ RN TO TAKE OVER
--- NOTE | 2021-07-02 19:30 | NUR ---
DR LIAO IN ROOM
--- NOTE | 2021-07-02 20:00 | NUR ---
PT'S SIGNIFICANT OTHER COMES TO RN STATION, ASKS FOR PT TO BE REPOSITIONED. ASKS HOW LONG PROCESS OF GETTING PT TO HOME WILL TAKE. PASTORAL CARE PRESENT WITH SIGNIFICANT OTHER. PT'S PRIMARY RN AND THIS MAP COLORER CLEANSED PT. REPOSITIONED. REMOVED EJ, FEMORAL LINE, AND CARRASOC CATH BY PRIMARY RN. PT'S SIGNIFICANT OTHER NOTIFIED BY PASTORAL CARE THAT WE WERE FINISHED. HE RETURNS TO BEDSIDE.
--- NOTE | 2021-07-02 20:39 | NUR ---
Entered the room after being called by Kosher Butcher Peggy to let me know patient had . Life partner Timothy (Skip) was at bedside. Expressed appropriate sadness. Appeared confused, stated he, "did not know what to do." We talked to clarify that his concerns centered around patient. I exlpained that I would call home and they would come get Sydnee. He indicated she did desired cremation and did not want a large service. I assured him that the home would follow his instructions and would contact him within the next day or two. He seemed settled after that. Offered prayer of commendation for patient and of comfort for family and friends. Timothy left at that time, after expressing appreciation to nursing staff. Personal belongings went with Timothy. No preference on home. Will call [facility] as they are the addictions therapist mortuary at this time.
--- NOTE | 2021-07-02 21:00 | NUR ---
BPDY WIPED DOWN. DENTURES IN PLACE. R EXTERNAL JUGULAR VAIN IV SITE AND R INGUINAL KEE LINE DC'D BY Opal HERNANDEZ RN. F/C DC'D. SIGNIFICANT OTHER IN ROOM, ALL BELONGINGS PACKED AND HE WILL TAKE HOME
--- NOTE | 2021-07-02 21:42 | NUR ---
[facility] here to pick pts body
--- NOTE | 2021-07-02 21:45 | NUR ---
PTS SIGNIFICANT OTHER TOOK ALL HER BELONGINGS HOME EARLIER THIS SHIFT. BODY SENT TO [facility] VIA STRET[facility]ER. DENTURES IN PLACE.
== END 2021-07-02 19:26 | DRG 871 ==
LOC: ED 09:04 → CCU 16:04 → MS 07-01 15:08
PROVIDERS: ADMIT Student in an Organized Health Care Education/Training Program; ATTEND Student in an Organized Health Care Education/Training Program
PROC: 06HM33Z Insertion of Infusion Device into Right Femoral Vein, Percutaneous Approach (ICD-10-PCS; principal; 2021-06-30)
PROC: 5A09357 Assistance with Respiratory Ventilation, Less than 24 Consecutive Hours, Continuous Positive Airway Pressure (ICD-10-PCS; 2021-06-30)
PROC: 3E03329 Introduction of Other Anti-infective into Peripheral Vein, Percutaneous Approach (ICD-10-PCS; 2021-06-30)
PROC: 3E033XZ Introduction of Vasopressor into Peripheral Vein, Percutaneous Approach (ICD-10-PCS; 2021-06-30)
DX: A41.9 Sepsis, unspecified organism (principal); K72.00 Acute and subacute hepatic failure without coma; J96.01 Acute respiratory failure with hypoxia; K76.7 Hepatorenal syndrome; N39.0 Urinary tract infection, site not specified; N17.9 Acute kidney failure, unspecified; D61.818 Other pancytopenia; R18.8 Other ascites; Z51.5 Encounter for palliative care; K74.60 Unspecified cirrhosis of liver; Z20.822 Contact with and (suspected) exposure to COVID-19; Z66 Do not resuscitate; Z88.2 Allergy status to sulfonamides; Z79.899 Other long term (current) drug therapy; Z88.8 Allergy status to other drugs, medicaments and biological substances; G89.4 Chronic pain syndrome; F39 Unspecified mood [affective] disorder; E80.6 Other disorders of bilirubin metabolism; R65.20 Severe sepsis without septic shock
CPT/HCPCS: 36415; 51701; 51702; 70450; 71045; 71250; 73502; 76705; 80048; 80053; 80076; 80503; 81001; 82140; 82247; 82248; 82553; 82803; 83605; 83735; 83880; 84300; 85007; 85025; 85610; 86140; 87088; 93005; 93010; 93306; 94640; 94660; 99285-25; A9270; C9803; G0480; J0456; J0692; J0696; J1940; J2270; J3430; J7030; J7060; J7121; P9047; U0003